=== PATIENT | female | born 1940 | race Caucasian/White ===

== ENCOUNTER 2017-09-03 06:08 | Inpatient (IN) | payer MEDICARE, OTHER ==
[2017-09-03] VITALS (15 sets, daily range): BP systolic 119–174; BP diastolic 65–87; PULSE 84–119; RESP 24–32; TEMP 97.7–98.8; O2SAT 88–100
[~2017-09-03] VITALS: Ht 172.7 cm; Wt 71.5 kg
[2017-09-03] MEDS ORDERED: FUROSEMIDE 40 MG/4 ML VIAL IV PUSH ONE (06:15)
[2017-09-03] MEDS ORDERED: RESP: ALBUTEROL 2.5 MG/IPRATROPIUM 0.5 MG NEB (SCH) INH ONE (06:15)
[2017-09-03] MEDS ORDERED: PIPERACIL-TAZO 4.5 GM PREMIX 100 ML IV ONE (06:15)
[2017-09-03] MEDS ORDERED: SODIUM CHLORIDE 0.9% FLUSH 10 ML FLUSH IVF PRN (06:15)
[2017-09-03 06:52] LABS: AUTOMATED NEUTROPHIL # 20.2 TH/MM3 (1.8-7.7); BASOPHIL # 0.1 TH/MM3 (0-0.2); BASOPHIL % 0.4 % (0.0-2.0); EOSINOPHIL # 0.2 TH/MM3 (0-0.4); EOSINOPHIL % 0.7 % (0.0-4.0); HEMATOCRIT 25.7 % (35.0-46.0); HEMOGLOBIN 8.5 GM/DL (11.6-15.3); LYMPH % 11.1 % (9.0-44.0); LYMPHOCYTE # 2.7 TH/MM3 (1.0-4.8); MEAN CELL VOLUME 87.9 FL (80.0-100.0); MEAN CORPUSCULAR HEMOGLOBIN 29.2 PG (27.0-34.0); MEAN CORPUSCULAR HGB CONC 33.2 % (32.0-36.0); MONO % 5.8 % (0.0-8.0); MONOCYTE # 1.4 TH/MM3 (0-0.9); PLATELET COUNT 342 TH/MM3 (150-450); RED BLOOD COUNT 2.92 MIL/MM3 (4.00-5.30); RED CELL DISTRIBUTION WIDTH 15.3 % (11.6-17.2); WHITE BLOOD COUNT 24.6 TH/MM3 (4.0-11.0)
--- NOTE | 2017-09-03 06:56 | RADRPT ---
EXAM DATE: 09/03/2017 6:52 AM EDT AGE/SEX: 76 years / Female INDICATIONS: Shortness of breath. CLINICAL DATA: This is the patient's initial encounter. Patient reports that signs and symptoms have been present for 1 day and indicates a pain score of 0/10. MEDICAL/SURGICAL HISTORY: . Recent pneumonia Hysterectomy. COMPARISON: TLI, XR CHEST PA AND LAT, 08/19/2014. . FINDINGS: Upright AP view of the chest demonstrates new bilateral multifocal airspace consolidations involving the bilateral upper lobes and lower lobes. Heart size appears grossly normal. Pulmonary vasculature i s obscured. Osseous structures are intact. CONCLUSION: Multifocal airspace consolidation. Findings consistent with multifocal pneumonia. Electronically signed by: Danii Quijano MD 09/03/2017 6:54 AM EDT
[2017-09-03 07:06] LABS: INTERNATIONAL NORMALIZED RATIO 1.2 RATIO; PROTHROMBIN TIME - PATIENT 12.2 SEC (9.8-11.6)
[2017-09-03 07:14] LABS: ALBUMIN 2.4 GM/DL (3.4-5.0); ALT (GPT) 29 U/L (10-53); AST (GOT) 32 U/L (15-37); BICARBONATE 20.8 MEQ/L (21.0-32.0); BLOOD UREA NITROGEN 20 MG/DL (7-18); CALCIUM 7.9 MG/DL (8.5-10.1); CHLORIDE 104 MEQ/L (98-107); CREATININE 1.49 MG/DL (0.50-1.00); GLOMERULAR FILTRATION RATE 34 ML/MIN (>89); GLUCOSE,RANDOM 94 MG/DL (74-106); MAGNESIUM 1.8 MG/DL (1.5-2.5); SODIUM (NA) 139 MEQ/L (136-145)
[2017-09-03 07:18] LABS: ALKALINE PHOSPHATASE 93 U/L (45-117); TOTAL BILIRUBIN ADULT 0.7 MG/DL (0.2-1.0); TOTAL PROTEIN 7.1 GM/DL (6.4-8.2); TROPONIN I 0.21 NG/ML (0.02-0.05)
--- NOTE | 2017-09-03 07:32 | PD ---
HPI Chief Complaint: Respiratory Symptoms Time Seen by Provider: 06:14 Travel History International Travel<30 days: No Contact w/Intl Traveler<30days: No Traveled to known affect area: No History of Present Illness HPI 76-year-old female presents to the emergency department from [facility] with acute worsening shortness of breath with work of breathing. Patient is noted to have peripheral edema and orthopnea. Patient recently hospitalized with pneumonia at [facility] and was discharged on oral antibiotic and has been a resident there for 3 weeks. Patient has been under the care of her town manager Dr. SILVESTRE her kiln loader Dr. Bobbi Chen and her splitter tender Dr. Whitley. Patient has been noted to have worsening renal function and it has been recommended that she be discontinued off of diuretic therapy. She was showing only minimal response to bronchodilator therapy. And her splitter tender office is recommending increased salt intake. Patient here has received Solu- Medrol in route to the hospital as well as 2 albuterol treatments and one DuoNeb treatment prior to arrival to the emergency department. Patient has had no diuretic in route to the hospital. Patient shows progressively worsening dyspnea with diaphoresis. Patient denies any chest pain. Patient has had no nausea or vomiting. PFSH Past Medical History Narrative Medical Surgeons syndrome rheumatoid arthritis COPD chronic renal failure hysterectomy varicose vein stripping; no tobacco use no alcohol use; nursing notes reviewed Autoimmune Disease: Yes Past Surgical History Hysterectomy: Yes Other Surgery: Yes (VARICOSE VEINS STRIPPED) Social History Alcohol Use: No Tobacco Use: No Substance Use: No Allergies-Medications (Allergen,Severity, Reaction): Coded Allergies: codeine (Verified Allergy, Unknown, Hallucinations, 09/03/17) Review of Systems Except as stated in HPI: all other systems reviewed are Neg General / Constitutional: Positive: Chills, No: Fever HENT: Positive: Congestion Cardiovascular: No: Chest Pain or Discomfort Respiratory: Positive: Cough, Shortness of Breath Gastrointestinal: No: Nausea, Vomiting, Abdominal Pain Genitourinary: No: Dysuria Musculoskeletal: Positive: Edema, No: Myalgias, Arthralgias Skin: No Rash Neurologic: No: Weakness, Dizziness, Syncope, Focal Abnormalities Psychiatric: No: Anxiety Hematologic/Lymphatic: No: Lymph Node Enlargement Physical Exam Narrative GENERAL: Well-developed well-nourished female in obvious respiratory distress with demonstrating work of breathing and tachypnea SKIN: Warm and dry. Pallor. HEAD: Normocephalic. EYES: No scleral icterus. No injection or drainage. NECK: Supple, trachea midline. No JVD or lymphadenopathy. CARDIOVASCULAR: Increased irregularly irregular rate and rhythm without murmurs , gallops, or rubs. RESPIRATORY: Breath sounds equal bilaterally bilateral rales. No accessory muscle use. GASTROINTESTINAL: Abdomen soft, non-tender, nondistended. MUSCULOSKELETAL: No cyanosis, bilateral lower leg and pedal pitting edema. BACK: Nontender without obvious deformity. No CVA tenderness. Data Data Last Documented VS Vital Signs Date Time Temp Pulse Resp B/P (MAP) Pulse Ox O2 Delivery O2 Flow Rate FiO2 09/03/17 07:45 100 100 09/03/17 07:40 BiPAP 09/03/17 07:20 118 28 146/68 (94) 4.00 09/03/17 06:10 98.8 Orders Orders Complete Blood Count With Diff (09/03/17 06:14) Comprehensive Metabolic Panel (09/03/17 06:14) B-Type Natriuretic Peptide (09/03/17 06:14) Act Partial Throm Time (Ptt) (09/03/17 06:14) Prothrombin Time / Inr (Pt) (09/03/17 06:14) Magnesium (Mg) (09/03/17 06:14) Ckmb (Isoenzyme) Profile (09/03/17 06:14) Troponin I (09/03/17 06:14) Urinalysis - C+S If Indicated (09/03/17 06:14) Blood Culture (09/03/17 06:14) Iv Access Insert/Monitor (09/03/17 06:14) Electrocardiogram (09/03/17 06:14) Ecg Monitoring (09/03/17 06:14) Oximetry (09/03/17 06:14) Oxygen Administration (09/03/17 06:14) Chest, Single Ap (09/03/17 06:14) Sodium Chloride 0.9% Flush (Ns Flush) (09/03/17 06:15) Albuterol-Ipratropium Neb (Duoneb Neb) (09/03/17 06:15) Furosemide Inj (Lasix Inj) (09/03/17 06:15) Lactic Acid (09/03/17 06:14) Piperacil-Tazo 4.5 Gm Premix (Zosyn 4.5 (09/03/17 06:15) Vancomycin Inj (Vancomycin Inj) (09/03/17 07:45) Arterial Blood Gas (Abg) (09/03/17 07:40) Admit Order (Ed Use Only) (09/03/17 ) Bookkeeper / Telemetry JOSE.Q8H (09/03/17 07:51) Diet Npo (09/03/17 Breakfast) Activity Bed Rest (09/03/17 07:51) Notify Dr: Other (09/03/17 07:51) Labs Laboratory Tests Test 09/03/17 06:30 09/03/17 07:40 White Blood Count 24.6 TH/MM3 Red Blood Count 2.92 MIL/MM3 Hemoglobin 8.5 GM/DL Hematocrit 25.7 % Mean Corpuscular Volume 87.9 FL Mean Corpuscular Hemoglobin 29.2 PG Mean Corpuscular Hemoglobin Concent 33.2 % Red Cell Distribution Width 15.3 % Platelet Count 342 TH/MM3 Mean Platelet Volume 8.0 FL Neutrophils (%) (Auto) 82.0 % Lymphocytes (%) (Auto) 11.1 % Monocytes (%) (Auto) 5.8 % Eosinophils (%) (Auto) 0.7 % Basophils (%) (Auto) 0.4 % Neutrophils # (Auto) 20.2 TH/MM3 Lymphocytes # (Auto) 2.7 TH/MM3 Monocytes # (Auto) 1.4 TH/MM3 Eosinophils # (Auto) 0.2 TH/MM3 Basophils # (Auto) 0.1 TH/MM3 CBC Comment DIFF FINAL Differential Comment Prothrombin Time 12.2 SEC Prothromb Time International Ratio 1.2 RATIO Activated Partial Thromboplast Time 25.0 SEC Blood Urea Nitrogen 20 MG/DL Creatinine 1.49 MG/DL Random Glucose 94 MG/DL Total Protein 7.1 GM/DL Albumin 2.4 GM/DL Calcium Level 7.9 MG/DL Magnesium Level 1.8 MG/DL Alkaline Phosphatase 93 U/L Aspartate Amino Transf (AST/SGOT) 32 U/L Alanine Aminotransferase (ALT/SGPT) 29 U/L Total Bilirubin 0.7 MG/DL Sodium Level 139 MEQ/L Potassium Level 3.3 MEQ/L Chloride Level 104 MEQ/L Carbon Dioxide Level 20.8 MEQ/L Anion Gap 14 MEQ/L Estimat Glomerular Filtration Rate 34 ML/MIN Lactic Acid Level 1.6 mmol/L Total Creatine Kinase 41 U/L Troponin I 0.21 NG/ML B-Type Natriuretic Peptide 1530 PG/ML Blood Gas Puncture Site RT RADIAL Blood Gas Patient Temperature 98.6 Blood Gas HCO3 20 mmol/L Blood Gas Base Excess -2.7 mmol/L Blood Gas Oxygen Saturation 83 % Arterial Blood pH 7.50 Arterial Blood Partial Pressure CO2 26 mmHg Arterial Blood Partial Pressure O2 48 mmHG Arterial Blood Oxygen Content 20.0 Vol % Arterial Blood Carboxyhemoglobin 1.6 % Arterial Blood Methemoglobin 0.5 % Blood Gas Hemoglobin 17.2 G/DL Oxygen Delivery Device NASAL CANNULA Blood Gas Liter Flow 4 L/M MDM Medical Decision Making Medical Screen Exam Complete: Yes Emergency Medical Condition: Yes Medical Record Reviewed: Yes Interpretation(s) EKG atrial fibrillation with controlled ventricular rate right axis deviation nonspecific ST segment flattening marked baseline artifact Last Impressions Chest X-Ray 09/03/17613 Signed Impressions: CONCLUSION: Multifocal airspace consolidation. Findings consistent with multifocal pneumoni a. CBC & BMP Diagram 09/03/17 06:30 Total Protein 7.1, Albumin 2.4 L, Calcium Level 7.9 L, Magnesium Level 1.8, Alkaline Phosphatase 93, Aspartate Amino Transf (AST/SGOT) 32, Alanine Aminotransferase (ALT/SGPT) 29, Total Bilirubin 0.7 Vital Signs Date Time Temp Pulse Resp B/P (MAP) Pulse Ox O2 Delivery O2 Flow Rate FiO2 09/03/17 07:20 118 28 146/68 (94) 88 Nasal Cannula 4.00 09/03/17 06:32 92 Nasal Cannula 4.00 09/03/17 06:10 98.8 104 26 174/87 (116) 92 ABG 4 L nasal cannula pH 7.5 PCO2 26 PO2 48 bicarb 20 base excess -2.7 O2 saturation 83% Differential Diagnosis Dyspnea, CHF, pulmonary edema, bilateral pneumonia, ACS, sepsis Narrative Course Patient placed on front desk monitor with continuous pulse oximetry with supplemental oxygen and administered DuoNeb updraft 2 as well as Lasix 60 mg IV 1 dose; cultures obtained lactic acid ordered and patient ordered Zosyn to be administered followed by vancomycin. Patient continues to show work of breathing concern for fatigue will order BiPAP to assist with ventilatory effort. Family at bedside. Patient's daughter well informed regarding patient's underlying medical conditions reports that her kiln loader and town manager have recommended avoiding diuretics although this is an acute change for her and patient has been noted to have acute peripheral edema and orthopnea in the last few days. Family is informed of patient's condition and plan for admission to the ICU. Patient has history of atrial fibrillation and is currently not on anticoagulant Chest x-ray resulted patient has borderline cardiomegaly with diffuse bilateral patchy infiltrates concerning for patchy pneumonia no effusion White cell count is 24,000 with anemia hemoglobin 8.5 and left shift; lactic acid is not elevated at 1.6 Chemistries remarkable for renal insufficiency. Creatinine 20/1.49 Troponin I is elevated 0.21 with a BNP of 1530 Discussed again intubation with the patient she is agreeable to intubation but wants trial of BiPAP first. Suspect patient will fatigue and will require endotracheal intubation and ventilatory support. Patient's case has been discussed with bolter helper who will accept patient to their service Sepsis Criteria SIRS Criteria (2 or more): Heart rate over 90, RR > 20 or PaCO2 < 32, WBC > 78268, < 4000 or > 10% bands Sepsis Criteria (SIRS+source): Infect source susp/known (pulmonary/pneumonia) Physician Communication Physician Communication call placed to bolter helper -- admit to Dr Johnson Diagnosis Primary Impression: Pneumonia Qualified Codes: J18.9 - Pneumonia, unspecified organism Additional Impressions: CHF (congestive heart failure) Qualified Codes: I50.9 - Heart failure, unspecified Elevated troponin I level Renal insufficiency Sepsis Qualified Codes: A41.9 - Sepsis, unspecified organism Acute hypoxemic respiratory failure Admitting Information Admitting Physician Requests: Admit Ashley Balderas MD Sep 03, 2017 07:32
[2017-09-03] MEDS ORDERED: VANCOMYCIN INJ 1,000 MG in SODIUM CHLOR 0.9% 250 ML INJ 250 ML IV ONE (07:45)
[2017-09-03] MEDS ORDERED: POTASSIUM CHLOR 20 MEQ PREMIX 100 ML IV PRN (09:45)
[2017-09-03] MEDS ORDERED: POTASSIUM PHOSPHATE MONOBASIC 500 MG TAB PO/TUBE PRN (09:45)
[2017-09-03] MEDS ORDERED: MAGNESIUM SULFATE INJ 2 GM in SODIUM CHLORIDE 0.9% INJ 96 ML IV PRN (09:45)
[2017-09-03] MEDS ORDERED: MAGNESIUM OXIDE 400 MG TAB PO PRN (09:45)
[2017-09-03] MEDS ORDERED: SODIUM PHOSPHATE INJ 30 MMOL in SODIUM CHLOR 0.9% 250 ML INJ 240 ML IV PRN (09:45)
[2017-09-03] MEDS ORDERED: POTASSIUM PHOSPHATE INJ 30 MMOL in SODIUM CHLOR 0.9% 250 ML INJ 250 ML IV PRN (09:45)
[2017-09-03] MEDS ORDERED: POTASSIUM CHLORIDE 25 MEQ EFFERVESCENT TAB PO PRN (09:45)
[2017-09-03] MEDS ORDERED: MAGNESIUM SULFATE INJ 4 GM in SODIUM CHLORIDE 0.9% INJ 92 ML IV PRN (09:45)
[2017-09-03] MEDS ORDERED: POTASSIUM PHOSPHATE MONOBASIC 500 MG TAB PO PRN (09:45)
[2017-09-03] MEDS ORDERED: POTASSIUM CHLOR 40 MEQ PREMIX 100 ML IV PRN ×2 (09:45)
--- NOTE | 2017-09-03 10:17 | HHI.HP ---
HPI Service Critical Care Medicine Primary Care Physician Unknown Admission Diagnosis resp failure/pneumonia/chf; sepsis; SUSANNAH; elevated troponin I Diagnosis: Travel History International Travel<30 Days: No Contact w/Intl Traveler <30 Da: No Traveled to Known Affected Are: No Sepsis Criteria SIRS Criteria (2 or more): Heart rate over 90, RR > 20 or PaCO2 < 32, WBC > 36866, < 4000 or > 10% bands Sepsis Criteria (SIRS+source): Infect source susp/known Criteria Outcome: Meets sepsis criteria History of Present Illness Patient history is limited due to BiPAP mask in place. History is obtained from patient's daughter and review of records from [facility]. 76-year-old female with past medical history of hypertension, COPD, emphysema,, Sjogren's syndrome, rheumatoid arthritis ( on plaquenil), CKD stage IV, hypothyroidism, chronic anemia with iron deficiency, GERD who presented to [facility] emergency department via [facility] from [facility]. She has recent hospitalization at [facility] on 07/24. She was discharged to [facility] on 08/05. Her daughter states that during this hospitalization she was treated for bilateral pneumonia and had tested positive for rhinovirus. Reportedly echo during that hospitalization showed an EF of 50% . Yesterday she left [facility] for a 4-hour home visit. Her daughter states she was fatigued and laid in bed. She was SOB. She has had a cough productive of clear sputum for 3 days. She denies any chest pain or hemoptysis. She has experienced bilateral lower extremity swelling. Her daughter reports that she had a fever at the residential however what is documented on transfer paperwork is temp of 97.4. Patient denies any issues with this for nausea. She has vomited every morning for the last week a few minutes after swallowing her morning medications. Upon arrival she is afebrile with night temp at 98.8. She is in A. fib with RVR with rate in the 110s. Blood white blood cell count is 24.6, creatinine of 1.49, troponin 0 0.21, BNP 1530. She has received Lasix 60 mg IV and has been placed on BiPAP 10/5 and 100% for increased work of breathing. Blood cultures have been obtained and she has been administered vancomycin, Zosyn, DuoNeb in the ED. She states she feels improved compared with arrival. She is agreeable to intubation if needed. Past Family Social History Allergies: Coded Allergies: codeine (Verified Allergy, Unknown, Hallucinations, 09/03/17) Past Medical History COPD/emphysema, she was followed by Dr. Mcmullen while at [facility] CKD stage IV. her daughter states this was secondary to long-term NSAID use. Her consumer relations complaint clerk is Dr. Jonas Chronic atrial fibrillation; makeup sales consultant is Dr. Whitley Hyperlipidemia Sjogren's syndrome, rheumatoid arthritis, inside barrel polisher is Dr. Mays Hypothyroidism Chronic anemia she has not had blood transfusion but had an IV iron infusion on 08/28/17 at [facility] Vitamin D deficiency Insomnia Osteoarthritis GERD Past Surgical History Hysterectomy Varicose vein stripping Colonoscopy 6 years ago was negative She had an EGD in fall 2016 for workup for anemia which was reportedly negative Reported Medications Norvasc 10 mg p.o. daily Metoprolol 25 mg p.o. twice daily DuoNeb every 6 hours Sodium bicarbonate 650 mg p.o. 3 times daily Tramadol 50 mg p.o. every 12 hours as needed for pain Aspirin 81 mg p.o. nightly Calcitriol 0.5 mcg p.o. daily Citalopram 40 mg p.o. daily Flexeril 10 mg p.o. 3 times daily Omeprazole 20 mg p.o. twice daily Evoxac 30 mg p.o. 3 times daily Magic mouthwash 5 mL's p.o. 4 times daily Gabapentin 100 mill grams p.o. 3 times daily Hydroxychloroquine 400 mg p.o. daily Levothyroxine 88 mcg p.o. daily acid 1000 mg p.o. daily Acetaminophen as needed for pain Ferrous sulfate 325 mg p.o. twice daily Culturelle 15 billion p.o. daily for 14 days Biotin 600 mcg p.o. daily Senna 1 tab p.o. daily Prednisone 5 mg p.o. daily Melatonin 6 mg p.o. nightly Family History Father in the war and medical history is unknown Mother at age 88 due to MRSA sepsis. She had cervical cancer. She also had rheumatoid arthritis Daughter has rheumatoid arthritis and Sjogren's Social History Smoked 17 cigarettes per day for 15 years and quit in 1982 Occasionally drinks wine . Her had undergone heart transplant Physical Exam Vital Signs Vital Signs Date Time Temp Pulse Resp B/P (MAP) Pulse Ox O2 Delivery O2 Flow Rate FiO2 6/3/18 09:46 100 98 09/03/17 08:30 119 28 156/70 (98) 100 BiPAP 09/03/17 07:45 100 100 09/03/17 07:40 BiPAP 09/03/17 07:20 118 28 146/68 (94) 88 Nasal Cannula 4.00 09/03/17 06:32 92 Nasal Cannula 4.00 09/03/17 06:10 98.8 104 26 174/87 (116) 92 Physical Exam GENERAL: Elderly overweight female who has BiPAP mask in place. She is communicating by speaking a few words while on BiPAP. SKIN: Warm and dry, adequately perfused. HEAD: Atraumatic. Normocephalic. EYES: Pupils equal and round, 2 mm and reactive bilaterally.. No scleral icterus. No injection or drainage. ENT: BiPAP mask in place. NECK: Trachea midline. Sitting up in bed, unable to appreciate JVD CARDIOVASCULAR: Irregularly irregular, tachycardic, no murmurs rubs or gallops appreciated. RESPIRATORY: Tachypneic with BiPAP mask on place with respiratory rate in the mid 20s. She has bilateral anterior and posterior rails. No wheeze. GASTROINTESTINAL: Abdomen soft, non-tender, nondistended. Bowel sounds present. MUSCULOSKELETAL: Extremities without clubbing, cyanosis. Trace pedal edema. No palpable cords or erythema. NEUROLOGICAL: Awake and alert, answers questions appropriately though conversation is limited due to BiPAP mask. No obvious cranial nerve deficits. Moving all extremities without apparent focal deficit. Laboratory Laboratory Tests Test 09/03/17 06:30 09/03/17 07:40 White Blood Count 24.6 Red Blood Count 2.92 Hemoglobin 8.5 Hematocrit 25.7 Mean Corpuscular Volume 87.9 Mean Corpuscular Hemoglobin 29.2 Mean Corpuscular Hemoglobin Concent 33.2 Red Cell Distribution Width 15.3 Platelet Count 342 Mean Platelet Volume 8.0 Neutrophils (%) (Auto) 82.0 Lymphocytes (%) (Auto) 11.1 Monocytes (%) (Auto) 5.8 Eosinophils (%) (Auto) 0.7 Basophils (%) (Auto) 0.4 Neutrophils # (Auto) 20.2 Lymphocytes # (Auto) 2.7 Monocytes # (Auto) 1.4 Eosinophils # (Auto) 0.2 Basophils # (Auto) 0.1 CBC Comment DIFF FINAL Differential Comment Prothrombin Time 12.2 Prothromb Time International Ratio 1.2 Activated Partial Thromboplast Time 25.0 Blood Urea Nitrogen 20 Creatinine 1.49 Random Glucose 94 Total Protein 7.1 Albumin 2.4 Calcium Level 7.9 Magnesium Level 1.8 Alkaline Phosphatase 93 Aspartate Amino Transf (AST/SGOT) 32 Alanine Aminotransferase (ALT/SGPT) 29 Total Bilirubin 0.7 Sodium Level 139 Potassium Level 3.3 Chloride Level 104 Carbon Dioxide Level 20.8 Anion Gap 14 Estimat Glomerular Filtration Rate 34 Lactic Acid Level 1.6 Total Creatine Kinase 41 Troponin I 0.21 B-Type Natriuretic Peptide 1530 Blood Gas Puncture Site RT RADIAL Blood Gas Patient Temperature 98.6 Blood Gas HCO3 20 Blood Gas Base Excess -2.7 Blood Gas Oxygen Saturation 83 Arterial Blood pH 7.50 Arterial Blood Partial Pressure CO2 26 Arterial Blood Partial Pressure O2 48 Arterial Blood Oxygen Content 20.0 Arterial Blood Carboxyhemoglobin 1.6 Arterial Blood Methemoglobin 0.5 Blood Gas Hemoglobin 17.2 Oxygen Delivery Device NASAL CANNULA Blood Gas Liter Flow 4 Date/Time Source Procedure Growth Status 09/03/17 06:35 Blood Peripheral Aerobic Blood Culture Pending Received 09/03/17 06:35 Blood Peripheral Anaerobic Blood Culture Pending Received Result Diagram: 09/03/1762909/03/1730 Septic Shock Reassessment Septic shock perfusion: reassessment completed Caprini VTE Risk Assessment Caprini VTE Risk Assessment: Mod/High Risk (score >= 2) Caprini Risk Assessment Model Point Value = 1 Point Value = 2 Point Value = 3 Point Value = 5 Age 41-60 Minor surgery BMI > 25 kg/m2 Swollen legs Varicose veins or History of unexplained or recurrent spontaneous Oral contraceptives or hormone replacement Sepsis (< 1 month) Serious lung disease, including pneumonia (< 1 month) Abnormal pulmonary function Acute myocardial infarction Congestive heart failure (< 1 month) History of inflammatory bowel disease Medical patient at bed rest Age 61-74 Arthroscopic surgery Major open surgery (> 45 min) Laparoscopic surgery (> 45 min) Malignancy Confined to bed (> 72 hours) Immobilizing plaster cast Central venous access Age >= 75 History of VTE Family history of VTE Factor V Leiden Prothrombin [id number] Lupus anticoagulant Anticardiolipin antibodies Elevated serum homocysteine Heparin-induced thrombocytopenia Other congenital or acquired thrombophilia Stroke (< 1 month) Elective arthroplasty Hip, pelvis, or leg fracture Acute spinal cord injury (< 1 month) Prophylaxis Regimen Total Risk Factor Score Risk Level Prophylaxis Regimen 0-1 Low Early ambulation 2 Moderate Order ONE of the following: *Sequential Compression Device (SCD) *Heparin 5000 units SQ BID 3-4 Higher Order ONE of the following medications: *Heparin 5000 units SQ TID *Enoxaparin/Lovenox 40 mg SQ daily (WT < 150 kg, CrCl > 30 mL/min) *Enoxaparin/Lovenox 30 mg SQ daily (WT < 150 kg, CrCl > 10-29 mL/min) *Enoxaparin/Lovenox 30 mg SQ BID (WT < 150 kg, CrCl > 30 mL/min) AND/OR *Sequential Compression Device (SCD) 5 or more Highest Order ONE of the following medications: *Heparin 5000 units SQ TID (Preferred with Epidurals) *Enoxaparin/Lovenox 40 mg SQ daily (WT < 150 kg, CrCl > 30 mL/min) *Enoxaparin/Lovenox 30 mg SQ daily (WT < 150 kg, CrCl > 10-29 mL/min) *Enoxaparin/Lovenox 30 mg SQ BID (WT < 150 kg, CrCl > 30 mL/min) AND *Sequential Compression Device (SCD) Assessment and Plan Assessment and Plan NEURO: Peripheral neuropathy Depression Insomnia For now we will hold nonessential medications including citalopram 40 mg p.o. daily, Flexeril 10 mg p.o. 3 times daily, Neurontin 100 mg's p.o. 3 times daily , melatonin 6 mg p.o. nightly RESP: Acute hypoxemic respiratory failure On BiPAP. Will intubate if needed. DuoNeb every 6 hours. Albuterol every 2 hours as needed. CV: Hypertension Atrial fibrillation Hyperlipidemia Lactic acid normal Received Lasix 60 mg IV in the emergency department. Monitor response. Obtain 2D echo EKG in the emergency department has significant artifact. It appears consistent with A. fib. No remarkable ST changes. Serial EKG and cardiac markers. Aspirin 325 mg now GI: GERD Famotidine as per below N.p.o. while on BiPAP and with respiratory failure FEN/RENAL: CKD stage III Acute hypokalemia Insert Hoffman for accurate intake and output monitoring while on BiPAP ID: Leukocytosis Follow-up blood culture. Send sputum culture. Continue vancomycin with pharmacy dosing, Zosyn (dose for creatinine clearance of 37), azithromycin. Check urine Legionella and pneumococcal antigen. IMMUNO: Sjogren's syndrome Rheumatoid arthritis Hold Plaquenil for now due to concern for sepsis. Home dose is 400 mg p.o. daily Continue Evoxac 30 mill grams p.o. 3 times daily HEME: Chronic anemia Iron deficiency Bilateral posterior tibial venous thrombosis. Obtain bilateral lower extremity ultrasound - results indicate bilateral below knee DVT, bilateral posterial tibial veins. She is symptomatic and also at high risk of extension due to immobility. I am also not able to r/o PE at this time because not candidate for VQ with bilateral infiltrates and not candidate for CT PA due to CKD. Therefore, favor treatment in this situation. Discussed with patient and her daughter. Continue ferrous sulfate 325 mg p.o. twice daily ENDO: Hypothyroidism Check TSH and resume Synthroid 88 mcg p.o. daily if appropriate Has been on prednisone since recent hospitalization. Currently prednisone 5 mg p.o. daily which will continue. PROPH: SCDs/heparin 5000 units subcu every 12 hours for DVT prophylaxis. Monitor for evidence of bleeding. Famotidine for stress ulcer prophylactic ACCESS: Peripheral IV providing adequate access at this time Patient is agreeable to intubation if needed. Patient and her daughter updated at bedside. Discussed with patient in the evening of 09/03. She was capacitated for medical decision-making. She states she is agreeable to intubation if needed for respiratory failure but wishes to be DNR in the setting of pulseless arrest. I have ordered alternate code intubation only. Will obtain records from [facility] Patient is critically ill with respiratory failure requiring BiPAP. She is at high risk for further decompensation including requiring intubation and mechanical ventilation. Discussed with Dr. Balderas Critical care time 45 minutes exclusive of separately billable procedures. Pamela Johnson MD Sep 03, 2017 10:17
[2017-09-03] MEDS ORDERED: Vancomycin Consult Pharmacy 1 EA OTHER SCH (10:30)
[2017-09-03] MEDS ORDERED: NURSING INFORMATION XX SCH (10:45)
[2017-09-03] MEDS ORDERED: RESP: ALBUTEROL 2.5 MG/3 ML NEB (PRN) INH (10:45)
[2017-09-03] MEDS ORDERED: ACETAMINOPHEN 325 MG TAB PO PRN (10:45)
[2017-09-03] MEDS ORDERED: MAGNESIUM HYDROXIDE SUSP 30 ML CUP PO PRN (10:45)
[2017-09-03] MEDS ORDERED: CHLORHEXIDINE GLUCONATE 2 % 1 PACK (2 CLOTHS) TOP PRN (10:45)
[2017-09-03] MEDS ORDERED: LACTULOSE SYRUP 20 GM/30 ML CUP PO PRN (10:45)
[2017-09-03] MEDS ORDERED: SODIUM CHLORIDE 0.9% FLUSH 10 ML FLUSH IV FLUSH PRN (10:45)
[2017-09-03] MEDS ORDERED: BISACODYL 10 MG SUPP RECTAL PRN (10:45)
[2017-09-03] MEDS ORDERED: SENNOSIDES 8.6 MG TAB PO PRN (10:45)
[2017-09-03] MEDS ORDERED: predniSONE 5 MG TAB PO SCH (11:15)
[2017-09-03] MEDS ORDERED: ASPIRIN 81 MG CHEW TAB CHEW ONE (11:30)
[2017-09-03] MEDS ORDERED: HEPARIN SODIUM - SQ 10,000 UNITS/ML VIAL SQ SCH (12:00)
[2017-09-03] MEDS: POTASSIUM CHLOR 20 MEQ PREMIX 100 ML IV SCH ×2 (12:42→15:44)
[2017-09-03] MEDS: AZITHROMYCIN INJ 500 MG in SODIUM CHLOR 0.9% 250 ML INJ 250 ML IV SCH (12:43)
[2017-09-03] MEDS: PIPERACIL-TAZO 3.375 GM PREMIX 50 ML IV SCH ×2 (15:44→19:21)
[2017-09-03] MEDS: FUROSEMIDE 40 MG/4 ML VIAL IV PUSH SCH ×2 (15:45→20:41)
--- NOTE | 2017-09-03 15:48 | RADRPT ---
EXAM DATE: 09/03/2017 3:36 PM EDT AGE/SEX: 76 years / Female INDICATIONS: Bilateral lower extremity swelling. Shortness of breath. CLINICAL DATA: This is the patient's initial encounter. Patient reports that signs and symptoms have been present for 1 day and indicates a pain score of 0/10. MEDICAL/SURGICAL HISTORY: . Rheumatoid arthritis. COPD. Sjorogen's disease. Kidney failure s tage 4. Neuropathy. . Vein stripping. Hysterectomy. COMPARISON: No prior [facility] exams available for comparison. No external comparison. TECHNIQUE: Venous ultrasound of both lower extremities was performed from the inguinal ligament to t he proximal calf. Real-time, color Doppler and spectral tracing, compression and augmentation techni ques were used. FINDINGS: Right Leg: There is thrombus in the right posterior tibial vein. Other venous tributaries of the rig ht lower extremity are patent. Left Leg: There is thrombus in the left posterior tibial vein. Other venous tributaries of the left lower extremity are patent. CONCLUSION: Bilateral below the knee lower extremity DVT as above. Electronically signed by: Jorden Downing MD 09/03/2017 3:47 PM EDT
--- NOTE | 2017-09-03 15:58 | EKG ---
Date Performed: 09/03/2017 Time Performed: 06:36:49 PTAGE: 76 years EKG: Marked baseline electrical interference makes interpretation difficult. There is a regular rhythm present with a heart rate of 99. Nonspecific ST-T changes Recommend repeat tracing of better q uality NO PREVIOUS TRACING DOCTOR: Fermin Carlin Interpretating Date/Time 09/03/2017 15:57:04
--- NOTE | 2017-09-03 16:06 | RADRPT ---
EXAM DATE: 09/03/2017 3:45 PM EDT AGE/SEX: 76 years / Female INDICATIONS: Increased BUN and creatinine. CLINICAL DATA: This is the patient's initial encounter. Patient reports that signs and symptoms have been present for 1 day and indicates a pain score of 0/10. MEDICAL/SURGICAL HISTORY: . Rheumatoid arthritis. Sjorogens disease. Kidney failure stage 4. Neuropathy. COPD. . Hysterectomy. Vein stripping. COMPARISON: No prior [place] exams available for comparison. No external comparison. MEASUREMENTS: Right Kidney:__8.5 x 4.6 x 4.6 cm Left Kidney:__10.7 x 5.1 x 5.3 cm FINDINGS: Right Kidney: 21 mm simple, benign-appearing cyst right upper pole. Parenchymal echogenicity within n ormal limits. No hydronephrosis. Left Kidney: Parenchymal echogenicity within normal limits. No mass or hydronephrosis. Bladder: Within normal limits given the degree of distension. CONCLUSION: 1. No obstructive uropathy or other acute abnormality demonstrated. 2. Small, benign cyst of the right upper pole. Electronically signed by: Jorden Downing MD 09/03/2017 4:05 PM EDT
[2017-09-03] MEDS: RESP: ALBUTEROL 2.5 MG/IPRATROPIUM 0.5 MG NEB (SCH) INH ×2 (16:57→21:18)
[2017-09-03] MEDS: ENOXAPARIN SODIUM 80 MG/0.8 ML SYRINGE SQ SCH (18:00)
[2017-09-03] MEDS: predniSONE 5 MG TAB PO SCH (19:18)
[2017-09-03 20:30] LABS: TROPONIN I 0.22 NG/ML (0.02-0.05)
[2017-09-03] MEDS: FAMOTIDINE 20 MG/2 ML VIAL IV PUSH SCH (20:41)
[2017-09-03] MEDS: SODIUM CHLORIDE 0.9% FLUSH 10 ML FLUSH IV FLUSH SCH (20:42)
[2017-09-03] MEDS: DOCUSATE SODIUM 50 MG/SENNA 8.6 MG TAB PO SCH (20:42)
[2017-09-03] MEDS: POTASSIUM CHLOR 20 MEQ PREMIX 100 ML IV PRN ×2 (20:43→22:40)
[2017-09-03 21:11] LABS: BILIRUBIN, URINE NEG (NEG); BLOOD, URINE NEG (NEG); GLUCOSE,URINE NEG (NEG); KETONE, URINE NEG (NEG); NITRITE,URINE NEG (NEG); URINE COLOR LIGHT-YELLOW (YELLW/STRAW); URINE LEUKOCYTE ESTERASE NEG (NEG)
[2017-09-04] VITALS (13 sets, daily range): BP systolic 127–142; BP diastolic 59–77; PULSE 72–105; RESP 20–24; TEMP 97.8–98.8; O2SAT 93–99
[2017-09-04] MEDS: PIPERACIL-TAZO 3.375 GM PREMIX 50 ML IV SCH ×4 (01:00→18:21)
[2017-09-04] MEDS: RESP: ALBUTEROL 2.5 MG/IPRATROPIUM 0.5 MG NEB (SCH) INH ×4 (03:45→21:03)
[2017-09-04] MEDS: CHLORHEXIDINE GLUCONATE 2 % 1 PACK (2 CLOTHS) TOP SCH (04:00)
--- NOTE | 2017-09-04 05:46 | RADRPT ---
EXAM DATE: 09/04/2017 5:43 AM EDT AGE/SEX: 76 years / Female INDICATIONS: Shortness of breath, possible pulmonary disease. CLINICAL DATA: This is the patient's subsequent encounter. Patient reports that signs and symptoms h ave been present for 2 days and indicates a pain score of 0/10. MEDICAL/SURGICAL HISTORY: Rheumatoid arthritis. Renal failure, chronic. Chronic obstructive p ulmonary disease. Sjorogens disease Hysterectomy. COMPARISON: [facility] [place], CHEST SINGLE AP, 09/03/2017. . FINDINGS: No significant changes in the bilateral interstitial and airspace pulmonary infiltrates. The overall pattern is essentially stable. The heart size is stable. There are small bilateral effusions. The bon y structures are stable. CONCLUSION: No significant interval change. Electronically signed by: Sunil Terrazas MD 09/04/2017 5:44 AM EDT
[2017-09-04] MEDS: ENOXAPARIN SODIUM 80 MG/0.8 ML SYRINGE SQ SCH ×2 (05:53→18:21)
[2017-09-04 06:42] LABS: AUTOMATED NEUTROPHIL # 21.6 TH/MM3 (1.8-7.7); BASOPHIL % 0.1 % (0.0-2.0); HEMOGLOBIN 7.6 GM/DL (11.6-15.3); LYMPH % 3.9 % (9.0-44.0); LYMPHOCYTE # 0.9 TH/MM3 (1.0-4.8); MEAN CELL VOLUME 87.8 FL (80.0-100.0); MEAN PLATELET VOLUME 7.7 FL (7.0-11.0); MONO % 3.6 % (0.0-8.0); MONOCYTE # 0.9 TH/MM3 (0-0.9); NEUT % 92.4 % (16.0-70.0); PLATELET COUNT 280 TH/MM3 (150-450); RED BLOOD COUNT 2.62 MIL/MM3 (4.00-5.30); RED CELL DISTRIBUTION WIDTH 15.4 % (11.6-17.2); WHITE BLOOD COUNT 23.4 TH/MM3 (4.0-11.0)
[2017-09-04 07:01] LABS: ALBUMIN 2.1 GM/DL (3.4-5.0); ALT (GPT) 23 U/L (10-53); AST (GOT) 27 U/L (15-37); BICARBONATE 24.2 MEQ/L (21.0-32.0); BLOOD UREA NITROGEN 25 MG/DL (7-18); CALCIUM 7.8 MG/DL (8.5-10.1); CHLORIDE 103 MEQ/L (98-107); CREATININE 1.61 MG/DL (0.50-1.00); GLOMERULAR FILTRATION RATE 31 ML/MIN (>89); GLUCOSE,RANDOM 108 MG/DL (74-106); MAGNESIUM 1.8 MG/DL (1.5-2.5); PHOSPHORUS 4.5 MG/DL (2.5-4.9); SODIUM (NA) 141 MEQ/L (136-145)
[2017-09-04 07:03] LABS: ALKALINE PHOSPHATASE 81 U/L (45-117); TOTAL BILIRUBIN ADULT 0.6 MG/DL (0.2-1.0); TOTAL PROTEIN 6.6 GM/DL (6.4-8.2)
[2017-09-04] MEDS ORDERED: VANCOMYCIN 1,000 MG/NS 250 ML IV SCH ×2 (08:00)
[2017-09-04] MEDS: POTASSIUM CHLOR 20 MEQ PREMIX 100 ML IV PRN ×2 (08:17→10:22)
[2017-09-04] MEDS: FAMOTIDINE 20 MG/2 ML VIAL IV PUSH SCH (09:31)
[2017-09-04] MEDS: SODIUM CHLORIDE 0.9% FLUSH 10 ML FLUSH IV FLUSH SCH (09:31)
[2017-09-04] MEDS: DOCUSATE SODIUM 50 MG/SENNA 8.6 MG TAB PO SCH ×2 (09:31→21:00)
[2017-09-04] MEDS: predniSONE 5 MG TAB PO SCH (09:31)
--- NOTE | 2017-09-04 09:48 | EKG ---
Date Performed: 09/03/2017 Time Performed: 19:37:30 PTAGE: 76 years EKG: Atrial fibrillation Inferior/lateral T wave changes are nonspecific Compared to previous tr acing atrial fibrillation is clearly present. There does not appear to be any other significant sandoval es Abnormal ECG PREVIOUS TRACING : 09/03/2017 06.36 DOCTOR: Gutierrez oL Interpretating Date/Time 09/04/2017 09:48:27
[2017-09-04] MEDS: AZITHROMYCIN INJ 500 MG in SODIUM CHLOR 0.9% 250 ML INJ 250 ML IV SCH (12:27)
--- NOTE | 2017-09-04 13:09 | HHI.CCPN ---
Subjective Remarks/Hospital Course Patient history is limited due to BiPAP mask in place. History is obtained from patient's daughter and review of records from [facility]. 76-year-old female with past medical history of hypertension, COPD, emphysema,, Sjogren's syndrome, rheumatoid arthritis (on plaquenil), CKD stage IV, hypothyroidism, chronic anemia with iron deficiency, GERD who presented to [facility] emergency department via [facility] from [facility]. She has recent hospitalization at [facility] on 07/24. She was discharged to [facility] on 08/05. Her daughter states that during this hospitalization she was treated for bilateral pneumonia and had tested positive for rhinovirus. Reportedly echo during that hospitalization showed an EF of 50% . Yesterday she left [facility] for a 4-hour home visit. Her daughter states she was fatigued and laid in bed. She was SOB. She has had a cough productive of clear sputum for 3 days. She denies any chest pain or hemoptysis. She has experienced bilateral lower extremity swelling. Her daughter reports that [facility] however what is documented on transfer paperwork is temp of 97.4. Patient denies any issues with this for nausea. She has vomited every morning for the last week a few minutes after swallowing her morning medications. Upon arrival she is afebrile with night temp at 98.8. She is in A. fib with RVR with rate in the 110s. Blood white blood cell count is 24.6, creatinine of 1.49, troponin 0 0.21, BNP 1530. She has received Lasix 60 mg IV and has been placed on BiPAP 10/5 and 100% for increased work of breathing. Blood cultures have been obtained and she has been administered vancomycin, Zosyn, DuoNeb in the ED. She states she feels improved compared with arrival. She is agreeable to intubation if needed. Subjective: 09/04 Diuresed net negative 1650. Was off Bipap to 6 L NC for couple of hours and then placed back on Bipap for desaturation. FIO2 weaned down to 55 from 100 % yesterday. Afebrile. No CP. Cough nonproductive. HAve not yet received records from [facility]. Will request them again. Objective Vital Signs Date Time Temp Pulse Resp B/P (MAP) Pulse Ox O2 Delivery O2 Flow Rate FiO2 09/04/17 12:00 98.5 86 24 137/72 (93) 99 09/04/17 12:00 Bi-Pap 55 09/04/17 09:33 6.00 Intake and Output 09/04/17 09/04/17 09/05/17 08:00 16:00 00:00 Intake Total 200 ml Output Total 1250 ml Balance -1050 ml Result Diagram: 09/04/17 0436 09/04/17 0436 Other Results Microbiology Date/Time Source Procedure Growth Status 09/03/17 21:25 Nasal Aspirate Influenza Types A,B Antigen (LAKHWINDER) - Final NEGATIVE FOR FLU A AND B ANTIGEN.... Complete 09/03/17 19:25 Urine Catheterized Urine Legionella Antigen - Final PRESUMPTIVE NEGATIVE FOR LEGIONELLA P... Complete 09/03/17 19:25 Urine Catheterized Urine Streptococcus pneumoniae Antigen (M - Final PRESUMPTIVE NEGATIVE FOR STREPTOCOCCU... Complete Laboratory Tests Test 09/03/17 14:35 Blood Gas Puncture Site RT RADIAL Blood Gas Patient Temperature 98.6 Blood Gas HCO3 22 mmol/L (22-26) Blood Gas Base Excess -1.1 mmol/L (-2-2) Blood Gas Oxygen Saturation 97 % (90-100) Arterial Blood pH 7.47 (7.380-7.420) Arterial Blood Partial Pressure CO2 31 mmHg (38-42) Arterial Blood Partial Pressure O2 267 mmHg (61-120) Arterial Blood Oxygen Content 15.2 Vol % (12.0-20.0) Arterial Blood Carboxyhemoglobin 1.1 % (0-4) Arterial Blood Methemoglobin 1.3 % (0-2) Blood Gas Hemoglobin 10.6 G/DL (12.0-16.0) Oxygen Delivery Device BIPAP Blood Gas Ventilator Setting EPAP5/PS7/IPAP12 Blood Gas Inspired Oxygen 80 % Objective Remarks GENERAL: Elderly overweight female who has BiPAP mask in place. She is communicating by speaking a few words while on BiPAP. SKIN: Warm and dry, adequately perfused. HEAD: Atraumatic. Normocephalic. EYES: Pupils equal and round, 2 mm and reactive bilaterally.. No scleral icterus. No injection or drainage. ENT: BiPAP mask in place. NECK: Trachea midline. Sitting up in bed, unable to appreciate JVD CARDIOVASCULAR: Irregularly irregular, rate 80s, no murmurs rubs or gallops appreciated. RESPIRATORY: Tachypneic with BiPAP mask on place with respiratory rate in the mid 20s. She has bilateral anterior and posterior rails. No wheeze. GASTROINTESTINAL: Abdomen soft, non-tender, nondistended. Bowel sounds present. MUSCULOSKELETAL: Extremities without clubbing, cyanosis. 1+ pitting bipedal edema. No palpable cords or erythema. NEUROLOGICAL: Awake and alert, answers questions appropriately though conversation is limited due to BiPAP mask. No obvious cranial nerve deficits. Moving all extremities without apparent focal deficit. A/P Assessment and Plan NEURO: Peripheral neuropathy Depression Insomnia Resume citalopram 40 mg p.o. daily, Flexeril 10 mg p.o. 3 times daily, Neurontin 100 mg's p.o. 3 times daily, melatonin 6 mg p.o. nightly RESP: Acute hypoxemic respiratory failure Bilateral pulmonary infiltrates This may represent ARDS/ lung injury ?secondary to rhinovirus. Would do bronchoscopy if she is intubated. Awaiting results of Echo, but this is not clearly cardiac and not significantly improved with diuresis. On BiPAP, weaning. Will intubate if needed. DuoNeb every 6 hours. Albuterol every 2 hours as needed. CV: Hypertension Atrial fibrillation Hyperlipidemia Lactic acid normal Received Lasix 60 mg IV in the emergency department 09/03 . Awaiting results of 2D echo EKG in the emergency department has significant artifact. It appears consistent with A. fib. No remarkable ST changes. Serial troponins flat at 0.2 Aspirin 325 mg daily . GI: GERD Famotidine as per below N.p.o. while on BiPAP and with respiratory failure Clear liquid diet FEN/RENAL: CKD stage III Acute hypokalemia Purewick in place intake and output monitoring while on BiPAP ICU electrolyte placement protocol. ID: Leukocytosis llow-up blood culture 09/03 - negative. Influenza screen negative. Unable to produce sputum Continue vancomycin with pharmacy dosing, Zosyn (dose for creatinine clearance of 37), azithromycin. urine Legionella and pneumococcal antigen negative IMMUNO: Sjogren's syndrome Rheumatoid arthritis Hold Plaquenil for now due to concern for sepsis. Home dose is 400 mg p.o. daily Evoxac 30 mill grams p.o. 3 times daily for sjogrens is not on formulary. HEME: Chronic anemia Iron deficiency Bilateral posterior tibial venous thrombosis. Obtained bilateral lower extremity ultrasound - results indicate bilateral below knee DVT, bilateral posterial tibial veins. She is symptomatic and also at high risk of extension due to immobility. I am also not able to r/o PE at this time because not candidate for VQ with bilateral infiltrates and not candidate for CT PA due to CKD. Therefore, favor treatment in this situation. Discussed with patient and her daughter. On lovenox 1mg/kg q12. Continue ferrous sulfate 325 mg p.o. twice daily. Received iron infusion on . ENDO: Hypothyroidism TSH normal, resume Synthroid 88 mcg p.o. daily Has been on prednisone since recent hospitalization. Currently prednisone 5 mg p.o. daily which will continue. PROPH: SCDs/h lovenox for DVT treatmentprophylaxis. Monitor for evidence of bleeding. Famotidine for stress ulcer prophylactic ACCESS: Peripheral IV providing adequate access at this time Patient is agreeable to intubation if needed. Patient and her daughter updated at bedside. Discussed with patient in the evening of 09/03. She was capacitated for medical decision-making. She states she is agreeable to intubation if needed for respiratory failure but wishes to be DNR in the setting of pulseless arrest. I have ordered alternate code intubation only. Will obtain records from [facility] 3 followup Pamela Johnson MD Sep 04, 2017 13:09
[2017-09-04 14:48] LABS: % SATURATION IRON PROFILE 12.2 % (20-50); IRON (FE) 18 MCG/DL (50-170); TOTAL IRON BINDING CAPACITY 147 MCG/DL (250-450)
[2017-09-04] MEDS ORDERED: MELATONIN 5 MG TAB PO PRN (19:45)
[2017-09-04] MEDS ORDERED: CYCLOBENZAPRINE HCL 10 MG TAB PO PRN (19:45)
[2017-09-04] MEDS: FAMOTIDINE 20 MG TAB PO SCH (20:27)
[2017-09-05] VITALS (16 sets, daily range): BP systolic 109–136; BP diastolic 58–75; PULSE 69–117; RESP 21–25; TEMP 97.7–100.8; O2SAT 91–100
[2017-09-05] MEDS: PIPERACIL-TAZO 3.375 GM PREMIX 50 ML IV SCH ×4 (01:01→19:52)
[2017-09-05] MEDS: SODIUM CHLORIDE 0.9% FLUSH 10 ML FLUSH IV FLUSH SCH ×3 (01:01→20:31)
[2017-09-05] MEDS ORDERED: FERR325T18 PO (03:41)
[2017-09-05] MEDS ORDERED: LEVO88TA2 PO (03:41)
[2017-09-05] MEDS ORDERED: SENN1TAB PO (03:41)
[2017-09-05] MEDS ORDERED: HYDR200T3 PO (03:41)
[2017-09-05] MEDS ORDERED: METO25TA3 PO (03:41)
[2017-09-05] MEDS ORDERED: HYDR5SYP10 PO (03:41)
[2017-09-05] MEDS ORDERED: CYCL10TA PO (03:41)
[2017-09-05] MEDS ORDERED: MAGICADU2 SWISH-SWAL (03:41)
[2017-09-05] MEDS ORDERED: IPRASOL INH (03:41)
[2017-09-05] MEDS ORDERED: MELA5 PO (03:41)
[2017-09-05] MEDS ORDERED: EVOX30CA2 PO (03:41)
[2017-09-05] MEDS ORDERED: OMEGCAP PO (03:41)
[2017-09-05] MEDS ORDERED: CITA40TA4 PO (03:41)
[2017-09-05] MEDS ORDERED: AMLO10TA2 PO (03:41)
[2017-09-05] MEDS ORDERED: SODI650T PO (03:41)
[2017-09-05] MEDS ORDERED: BIOTCAP PO (03:41)
[2017-09-05] MEDS ORDERED: THERTAB17 PO (03:41)
[2017-09-05] MEDS ORDERED: TRAM50TA PO (03:41)
[2017-09-05] MEDS ORDERED: GABA100C4 PO (03:41)
[2017-09-05] MEDS ORDERED: CULT10CA2 PO (03:41)
[2017-09-05] MEDS ORDERED: PRED5TAB PO (03:41)
[2017-09-05] MEDS ORDERED: MILKSUS4 PO (03:41)
[2017-09-05] MEDS ORDERED: OMEP20TA93 PO (03:41)
[2017-09-05] MEDS ORDERED: FLEEENE RECTAL (03:41)
[2017-09-05] MEDS ORDERED: ASPI81TA23 PO (03:41)
[2017-09-05] MEDS ORDERED: DULC10SU3 RECTAL (03:41)
[2017-09-05] MEDS ORDERED: TYLE325T PO (03:41)
[2017-09-05] MEDS ORDERED: CALC0.5C PO (03:41)
[2017-09-05] MEDS: CHLORHEXIDINE GLUCONATE 2 % 1 PACK (2 CLOTHS) TOP SCH (04:00)
[2017-09-05] MEDS: RESP: ALBUTEROL 2.5 MG/IPRATROPIUM 0.5 MG NEB (SCH) INH ×4 (04:26→21:52)
[2017-09-05 05:12] LABS: AUTOMATED NEUTROPHIL # 21.8 TH/MM3 (1.8-7.7); BASOPHIL % 0.1 % (0.0-2.0); EOSINOPHIL % 0.1 % (0.0-4.0); HEMATOCRIT 24.6 % (35.0-46.0); HEMOGLOBIN 8.1 GM/DL (11.6-15.3); LYMPHOCYTE # 1.4 TH/MM3 (1.0-4.8); MEAN CELL VOLUME 88.8 FL (80.0-100.0); MEAN CORPUSCULAR HEMOGLOBIN 29.2 PG (27.0-34.0); MEAN CORPUSCULAR HGB CONC 32.9 % (32.0-36.0); MEAN PLATELET VOLUME 7.7 FL (7.0-11.0); MONO % 3.7 % (0.0-8.0); MONOCYTE # 0.9 TH/MM3 (0-0.9); NEUT % 90.1 % (16.0-70.0); PLATELET COUNT 353 TH/MM3 (150-450); RED BLOOD COUNT 2.77 MIL/MM3 (4.00-5.30); RED CELL DISTRIBUTION WIDTH 15.5 % (11.6-17.2); WHITE BLOOD COUNT 24.2 TH/MM3 (4.0-11.0)
[2017-09-05 05:34] LABS: BICARBONATE 25.7 MEQ/L (21.0-32.0); CALCIUM 8.4 MG/DL (8.5-10.1); CREATININE 1.52 MG/DL (0.50-1.00)
[2017-09-05 05:38] LABS: RANDOM VANCOMYCIN 14.3 COMMENT
--- NOTE | 2017-09-05 06:01 | RADRPT ---
EXAM DATE: 09/05/2017 5:48 AM EDT AGE/SEX: 76 years / Female INDICATIONS: Short of breath. Cough. CLINICAL DATA: This is the patient's subsequent encounter. Patient reports that signs and symptoms h ave been present for 4 - 6 days and indicates a pain score of 0/10. MEDICAL/SURGICAL HISTORY: Congestive heart failure. None. [place] [facility] [place]. . FINDINGS: There has been no change in the bilateral interstitial and airspace pulmonary infiltrates compared to the prior study. The heart size is stable. No significant pleural effusions. No evidence of pneumoth orax. The bony structures are stable. CONCLUSION: No significant interval change. Electronically signed by: Sunil Terrazas MD 09/05/2017 6:00 AM EDT
[2017-09-05] MEDS: LEVOTHYROXINE SODIUM 88 MCG TAB PO SCH (06:27)
[2017-09-05] MEDS: ENOXAPARIN SODIUM 80 MG/0.8 ML SYRINGE SQ SCH ×2 (06:27→18:36)
[2017-09-05] MEDS: POTASSIUM CHLOR 20 MEQ PREMIX 100 ML IV PRN ×2 (07:44→09:56)
[2017-09-05] MEDS ORDERED: FUROSEMIDE 40 MG/4 ML VIAL IV PUSH ONE (08:45)
[2017-09-05] MEDS ORDERED: ONDANSETRON ODT 4 MG TAB PO PRN (08:45)
[2017-09-05] MEDS: LORazepam 2 MG/ML VIAL IV ONE ×2 (08:45→09:02)
[2017-09-05] MEDS ORDERED: POTASSIUM CHLOR 20 MEQ PREMIX 100 ML IV SCH (08:45)
[2017-09-05] MEDS ORDERED: CITALOPRAM HYDROBROMIDE 40 MG TAB PO SCH (09:00)
[2017-09-05] MEDS: DOCUSATE SODIUM 50 MG/SENNA 8.6 MG TAB PO SCH ×2 (09:00→20:31)
[2017-09-05] MEDS: GABAPENTIN 100 MG CAP PO SCH ×3 (09:02→18:36)
[2017-09-05] MEDS: FAMOTIDINE 20 MG TAB PO SCH ×2 (09:03→20:31)
[2017-09-05] MEDS: predniSONE 5 MG TAB PO SCH (09:03)
[2017-09-05] MEDS ORDERED: ETOMIDATE 20 MG/10 ML VIAL IV PUSH ONE (09:45)
[2017-09-05] MEDS ORDERED: ROCURONIUM INJ 50 MG/5 ML VIAL IV ONE (09:45)
--- NOTE | 2017-09-05 09:55 | HHI.CCPN ---
Subjective Remarks/Hospital Course Patient history is limited due to BiPAP mask in place. History is obtained from patient's daughter and review of records from [facility]. 76-year-old female with past medical history of hypertension, COPD, emphysema,, Sjogren's syndrome, rheumatoid arthritis (on plaquenil), CKD stage IV (followed by Dr. Jonas with plan for eventual home PD), hypothyroidism, chronic anemia with iron deficiency, GERD who presented to [facility] emergency department via [facility] from [facility]. She has recent hospitalization at [facility] on 07/24. She was discharged to [facility] on 08/05. Her daughter states that during this hospitalization she was treated for bilateral pneumonia and had tested positive for rhinovirus. Reportedly echo during that hospitalization showed an EF of 50%. Yesterday she left [facility] for a 4-hour home visit. Her daughter states she was fatigued and laid in bed. She was SOB. She has had a cough productive of clear sputum for 3 days. She denies any chest pain or hemoptysis. She has experienced bilateral lower extremity swelling. Her daughter reports that she had a fever at the long-term however what is documented on transfer paperwork is temp of 97.4. Patient denies any issues with this for nausea. She has vomited every morning for the last week a few minutes after swallowing her morning medications. Upon arrival she is afebrile with night temp at 98.8. She is in A. fib with RVR with rate in the 110s. Blood white blood cell count is 24.6, creatinine of 1.49 , troponin 0 0.21, BNP 1530. She has received Lasix 60 mg IV and has been placed on BiPAP 10/5 and 100% for increased work of breathing. Blood cultures have been obtained and she has been administered vancomycin, Zosyn, DuoNeb in the ED. She states she feels improved compared with arrival. She is agreeable to intubation if needed. 09/04 Diuresed net negative 1650. Was off Bipap to 6 L NC for couple of hours and then placed back on Bipap for desaturation. FIO2 weaned down to 55 from 100 % yesterday. Afebrile. No CP. Cough nonproductive. HAve not yet received records from [facility]. Will request them again. Subjective: 09/05 Net negative 1760. Did not sleep well last night, worsening hypoxia. Persistent bilateral rales and infiltrates on CXR. She is fatigued and says she can't take it anymore. Initially refusing intubation and indicating she was wanting comfort measures only, however upon discussion with patient and her daughter, Denita, she was agreeable to intubation. Records received from [facility]. She was admitted 07/25/17 with myalgia, headache, cough, weakness, vomiting, diarrhea, visual hallucinations. She was treated with Zosyn and Zithromax and then Rocephin and doxycycline. Sputum culture 07/25 and blood cultures from 07/24 and 07/26 were negative. Urine Legionella and pneumococcal antigens were negative. Viral respiratory PCR was positive for rhino virus 07/27/17. Influenza was negative. CT chest 07/25 showed right upper lobe pneumonia. Echo 07/27/17 showed LVH with ejection fraction 60-65%, diastolic dysfunction, mild to moderate mitral regurgitation. Objective Vital Signs Date Time Temp Pulse Resp B/P (MAP) Pulse Ox O2 Delivery O2 Flow Rate FiO2 09/05/17 08:10 99 Non-Rebreather 100 09/05/17 07:00 117 09/05/17 07:00 98.5 21 136/75 (95) 09/04/17 21:03 14.00 Intake and Output 09/05/17 09/05/17 09/06/17 08:00 16:00 00:00 Intake Total 340 ml Output Total 1500 ml Balance -1160 ml Result Diagram: 09/05/17 0414 09/05/17 0414 Other Results Microbiology Date/Time Source Procedure Growth Status 09/03/17 21:25 Nasal Aspirate Influenza Types A,B Antigen (LAKHWINDER) - Final NEGATIVE FOR FLU A AND B ANTIGEN.... Complete 09/03/17 19:25 Urine Catheterized Urine Legionella Antigen - Final PRESUMPTIVE NEGATIVE FOR LEGIONELLA P... Complete 09/03/17 19:25 Urine Catheterized Urine Streptococcus pneumoniae Antigen (M - Final PRESUMPTIVE NEGATIVE FOR STREPTOCOCCU... Complete Objective Remarks GENERAL: Elderly overweight female , Bipap mask has been removed and she in on NR. she is tachypneic. SKIN: Warm and dry, adequately perfused. HEAD: Atraumatic. Normocephalic. EYES: Pupils equal and round, 2 mm and reactive bilaterally.. No scleral icterus. No injection or drainage. ENT: NR in place. NECK: Trachea midline. Sitting up in bed, unable to appreciate JVD CARDIOVASCULAR: Tachycardic, regular, rate of 102, no murmurs rubs or gallops appreciated. RESPIRATORY: Tachypneic with high work of breathing. Bilateral anterior and posterior rales. GASTROINTESTINAL: Abdomen soft, non-tender, nondistended. Bowel sounds present. : Purewick catheter in place with light yellow urine output. MUSCULOSKELETAL: Extremities without clubbing, cyanosis. 1+ pitting bipedal edema. No palpable cords or erythema. NEUROLOGICAL: Awake but lethargic, oriented, moving all extremities, oriented. A/P Assessment and Plan NEURO: Peripheral neuropathy Depression Insomnia Continue Flexeril 10 mg p.o. 3 times daily, Neurontin 100 mg's p.o. 3 times daily hold citalopram Propofol for sedation. Fentanyl for sedation. Daily sedation vacation Target RASS -2 RESP: Acute hypoxemic respiratory failure ARDS, moderate severity Etiology of bilateral pulmonary infiltrates is unclear. Not seeing significant improvement with diuresis. She is now fatigued on Bipap, agrees to intubation though states she would not want prolonged intubation or trach. Will proceed with bronchoscopy. Have been unable to obtain CT chest because of respiratory status, will proceed with it now. Persistent bilateral infiltrates, may be acute lung injury/inflammatory in nature. Working up for infection/heart failure now, consider trial of steroids at increased dose. Has been on prednisone 5 mg daily since d/c from [facility], will continue. Request PFTs from Dr. Mcmullen's office performed Monday. DuoNeb every 6 hours. Albuterol every 2 hours as needed. CV: Hypertension Paroxysmal atrial fibrillation Hyperlipidemia Diastolic heart failure Lactic acid normal Diuresed with lasix, net negative >3.5 L since admission. Echo at [facility] with ejection fraction 60-65%, diastolic dysfunction, mild left atrial dilation Mild/moderate MR Repeat echo pending EKG in the emergency department has significant artifact. It appears consistent with A. fib. No remarkable ST changes. Serial troponins flat at 0.2 Aspirin 325 mg daily . GI: GERD Hiatal hernia Famotidine as per below Insert OGT, initiate tube feeds after bronch. Jevity 1.5 with goal rate 50 mL/ h. Follow-up nutrition recommendations FEN/RENAL: CKD stage IV Acute hypokalemia Insert Hoffman. Previously had Purewick catheter prior to sedation. ICU electrolyte placement protocol. Followed by Dr. Jonas as outpatient. Classes for home peritoneal dialysis were tentatively scheduled for January. ID: Leukocytosis blood culture 09/03 - negative. Influenza screen negative. Unable to produce sputum. Bronchial washings sent from [facility] 09/05 - secretions appear clear. Continue vancomycin with pharmacy dosing, Zosyn (dose for creatinine clearance of 37), azithromycin. urine Legionella and pneumococcal antigen negative At [facility], + for Rhinovirus 07/24 . IMMUNO: Sjogren's syndrome Rheumatoid arthritis Hold Plaquenil for now due to concern for sepsis. Home dose is 400 mg p.o. daily Evoxac 30 mill grams p.o. 3 times daily for sjogrens is not on formulary. HEME: Chronic anemia Iron deficiency Bilateral posterior tibial venous thrombosis. Obtained bilateral lower extremity ultrasound - results indicate bilateral below knee DVT, bilateral posterial tibial veins. She is symptomatic and also at high risk of extension due to immobility. I am also not able to r/o PE at this time because not candidate for VQ with bilateral infiltrates and not candidate for CT PA due to CKD. Therefore, favor treatment in this situation. Discussed with patient and her daughter. On lovenox 1mg/kg q12. Continue ferrous sulfate 325 mg p.o. twice daily. Received iron infusion on . ENDO: Hypothyroidism TSH normal, resume Synthroid 88 mcg p.o. daily Has been on prednisone since recent hospitalization. Currently prednisone 5 mg p.o. daily which will continue. Monitor bedside glucose while on steroids and administer low-dose insulin sliding scale as indicated PROPH: SCDs/ lovenox for DVT treatmentp. Monitor for evidence of bleeding. Famotidine for stress ulcer prophylactic ACCESS: Peripheral IV providing adequate access at this time Discussed with patient in the evening of 09/03. She was capacitated for medical decision-making. She states she is agreeable to intubation if needed for respiratory failure but wishes to be DNR in the setting of pulseless arrest. I have ordered alternate code intubation only. 09/05 Lengthy discussion with patient who was initially resistant to intubation and making comments regarding consideration of comfort measures. Ultimately she was agreeable to intubation. She states her daughter is her healthcare surrogate. She indicated she would not want prolonged intubation or trach Patient is critically ill with worsening respiratory failure despite BiPAP. Required intubation and stabilization. Critical care time 45 minutes exclusive of separately billable procedures Pamela Johnson MD Sep 05, 2017 09:55
[2017-09-05] MEDS ORDERED: MIDAZOLAM HCL 5 MG/ML VIAL (1 ML) ONE (10:46)
[2017-09-05] MEDS ORDERED: METOPROLOL TARTRATE 5 MG/5 ML VIAL ONE (11:02)
--- NOTE | 2017-09-05 11:02 | PD.PROCEDR ---
Procedure Note Procedure PROCEDURE NOTE PROCEDURE: Endotracheal intubation INDICATION: Acute hypoxemic respiratory failure, failed BiPAP therapy. DETAILS OF PROCEDURE: The patient was placed in optimal position and preoxygenated with 100% FiO2 via [id number]. Oximeter oxygen saturation of 94% was obtained prior to direct laryngoscopy. The patient was administered Etomidate 20 mg IV for sedation, Rocuronium 50 mg IV. Direct laryngoscopy was performed with a 3 glidescope blade (rheumatoid arthritis) and a grade I Cormack-Lehane view was obtained, however unable to direct ETT anteriorly to pass tube. Bagged patient and then obtained second look with 3 MAC using standard stylet bent sharply anteriorly and 8.0 ETT was advanced on first attempt, visualized passing through the cords. Correct placement was confirmed with colorimetric CO2 detector. Breath sounds were equal bilaterally. No sounds auscultated over the stomach. The endotracheal tube was secured with a commercial tube pace at a depth of 24 cm at the lips. The patient was connected to the ventilator. The patient tolerated the procedure well without any apparent complication. Bronchoscopy immediately followed an endotracheal tube was visualized to be in satisfactory position above the ricky. Pamela Johnson MD Sep 05, 2017 11:02
--- NOTE | 2017-09-05 11:05 | PD.PROCEDR ---
Procedure Note Procedure Date: 09/05/17 Procedure: Fiberoptic bronchoscopy with bronchoalveolar lavage, diagnostic Indication: Acute respiratory failure with non-resolving bilateral infiltrates Details of procedure: Informed consent was obtained from patient after discussion of risks, benefits, alternatives. The patient was intubated prior to procedure. Placed on 100% FiO2.. She was on sedation with propofol 50 mg/kg/min, fentanyl 100 mcg IV, Versed 5 mg IV, fentanyl drip.. I entered the 8.0 endotracheal tube with a flexible bronchoscope. The bronchoscope was advanced into RML and 50 mL of saline was instilled with 35 mL of clear return which was sent for viral, bacterial, fungal, AFB cultures. Bronchoscope was advanced into all pulmonary subsegments which were explored. There were no significant secretions. No significant mucous plugs. No endobronchial lesions. Patient tolerated the procedure well without apparent complication. Pamela Johnson MD Sep 05, 2017 11:05
[2017-09-05] MEDS ORDERED: METOPROLOL TARTRATE 5 MG/5 ML VIAL IV PUSH SCH (11:15)
[2017-09-05] MEDS ORDERED: MIDAZOLAM HCL 5 MG/ML VIAL (1 ML) IV ONE (11:15)
[2017-09-05] MEDS ORDERED: MIDAZOLAM HCL 2 MG/2 ML VIAL IV PUSH PRN (11:30)
[2017-09-05] MEDS ORDERED: POTASSIUM CHLORIDE 25 MEQ EFFERVESCENT TAB OG-TUBE ONE (11:45)
[2017-09-05] MEDS: fentaNYL DRIP 250 ML IV PRN (12:00)
[2017-09-05] MEDS: PROPOFOL 1000 MG/100 ML INJ 100 ML IV PRN ×3 (12:00→20:48)
--- NOTE | 2017-09-05 12:41 | PD.CONS ---
History of Present Illness Service Infectious disease Consult Requested By Dr. Johnson Reason for Consult Evaluate patient with bilateral pulmonary infiltrates, not resolving Primary Care Physician Unknown Diagnoses: History of Present Illness Patient seen and examined. Records reviewed. Records from [facility], as well as from [facility] reviewed. I also got some history from the patient's son-in-law. Patient is a 76-year-old female, came from a rehab facility, brought into the hospital for evaluation of shortness of breath. Patient's history significant for a recent hospitalization at [facility] from July 24 - August 06. Workup at that time showed evidence of bilateral pneumonia. She also had an abnormal urinalysis. Sputum culture grew normal respiratory tyler. Her viral testing was positive for rhino enterovirus. She was seen by ndt inspector as well as infectious disease during that hospitalization. According to the son-in-law patient was on nasal O2 during the whole hospital stay, and from there she was discharged to a rehab facility on nasal O2. She was on oral antibiotics in the rehab facility. Patient reportedly was doing really well the first week after discharge, but after that she started developing fatigue. She has had 3 chest x-ray done in the nursing facility. The chest x-ray on August 07 showed bilateral upper lobe infiltrates. Chest x-ray August 17 showed some improvement in the right upper lobe infiltrate, no mention of the left upper lobe infiltrate. Chest x-ray August 23 is now showing by basilar consolidation. There was no mention of any fever. Patient apparently has had problem with nausea and vomiting in the morning usually after she takes her medications. However throughout the day she tolerates her diet. She has had some cough but has not really been worsening. Patient has not complained of any chest pain. One day prior to her admission, her family took her out for about 4 hours. She was very weak, and they did not really notice any significant change in her respiratory status. According to the son-in-law, the plan was for the patient to be discharged to home on August 04. On the day of admission patient became short of breath, and she was brought into the hospital for further evaluation and treatment. She ended up getting intubated. Her chest x-ray has shown bilateral pulmonary infiltrates. Her WBC is elevated at more than 20,000. Urinalysis is unremarkable. BNP is 400+. Previous echo at [facility] showed good ejection fraction of greater than 50%. Patient is currently on Zithromax, Zosyn, and vancomycin. She is afebrile. Urine for Legionella and pneumococcal antigen are negative. Influenza antigen is negative. Infectious disease consultation has been requested to evaluate the patient with persistent bilateral pulmonary infiltrates. Review of Systems ROS Limitations: Clinical Condition, Intubated Past Family Social History Allergies: Coded Allergies: codeine (Verified Allergy, Unknown, Hallucinations, 09/03/17) Past Medical History COPD/emphysema, she was followed by Dr. Mcmullen while at [facility] CKD stage IV. her daughter states this was secondary to long-term NSAID use. Her aerospace engineer is Dr. Jonas Chronic atrial fibrillation; order dispatcher chief is Dr. Whitley Hyperlipidemia Sjogren's syndrome, rheumatoid arthritis, final cleaner is Dr. Mays Hypothyroidism Chronic anemia she has not had blood transfusion but had an IV iron infusion on 08/28/17 at [facility] Vitamin D deficiency Insomnia Osteoarthritis GERD Past Surgical History Hysterectomy Varicose vein stripping Colonoscopy 6 years ago was negative She had an EGD in fall 2016 for workup for anemia which was reportedly negative Reported Medications I attest that I obtained, updated or reviewed the home and current medications. Reported Meds & Active Scripts Active Reported Dulcolax Supp (Bisacodyl) 10 Mg Supp 10 Mg RECTAL DAILY PRN Milk of Magnesia Liq (Magnesium Hydroxide) 400 Mg/5 Ml Susp 30 Ml PO PRN Fleet Enema Six Pack 7-19 gm/118Ml (Sodium Phosphates) 19 Gram-7 Gram/118 Ml Matilda 118 Ml RECTAL PRN Amlodipine (Amlodipine Besylate) 10 Mg Tab 10 Mg PO DAILY Metoprolol Tartrate 25 Mg Tab 25 Mg PO BID Duoneb (Ipratropium-Albuterol Neb) 0.5-2.5 Mg/3 Ml Neb 1 Nebule INH Q6HR NEB Sodium Bicarbonate 650 Mg Tab 650 Mg PO TIDPC Tramadol (Tramadol HCl) 50 Mg Tab 50 Mg PO Q12HR PRN 14 Days Aspirin EC (Aspirin) 81 Mg Tabdr 81 Mg PO DAILY@1600 Calcitriol 0.5 Mcg Cap 0.5 Mcg PO DAILY Citalopram (Citalopram Hydrobromide) 40 Mg Tab 40 Mg PO DAILY Flexeril (Cyclobenzaprine HCl) 10 Mg Tab 10 Mg PO TID Omeprazole 20 Mg Tab 20 Mg PO DAILY Magic Mouthwash Adult Liq (Multi-Ingredient Mouthwash/Gargle) 120 Ml Susp 5 Ml SWISH-SWAL ACHS Each 5mL contains: Nystatin 200,000units, Diphenhydramine 4.25mg, Viscous Lidocaine 10mg, Trevino syrup 0.8 mL Tylenol (Acetaminophen) 325 Mg Tab 650 Mg PO Q4H PRN Hydrocodone/Homatropine 5-1.5 mg/5Ml (Hydrocodone W/ Homatropine) 5 Mg-1.5 Mg/5 Ml Syp 5 Ml PO Q4HR PRN Evoxac (Cevimeline HCl) 30 Mg Cap 30 Mg PO TID Gabapentin 100 Mg Cap 100 Mg PO TID Hydroxychloroquine (Hydroxychloroquine Sulfate) 200 Mg Tab 400 Mg PO DAILY Takw with food Levothyroxine (Levothyroxine Sodium) 88 Mcg Tab 88 Mcg PO DAILY Thera-M (Multiple Vitamins W/ Minerals) 1 Tab 1 Tab PO DAILT [place]-3 Fish Oil/Vitamin (Fish Oil-Cholecalciferol) 1,000-1,000 Mg Cap 1 Cap PO DAILY Ferrous Sulfate 325 Mg (65 Mg Iron) Tablet 325 Mg PO BID [facility] (Lactobacillus-Inulin) 15 Billion Cell Cap 1 Cap PO DAILY 14 Days Biotin 5 Mg Cap 600 Mcg PO DAILY Senna-Plus (Sennosides-Docusate Sodium) 8.6-50 Mg Tab 1 Tab PO DAILY Prednisone 5 Mg Tab 5 Mg PO DAILY Melatonin 5 Mg Tab 3 Mg PO HS PRN Active Ordered Medications Current Medications Medications (Trade) Dose Ordered Sig/Tony Route Start Time Stop Time Status Last Admin Potassium Chloride 100 ml @ 50 mls/hr Q2H PRN IV 09/03/17 09:45 Potassium Chloride 100 ml @ 50 mls/hr Q2H PRN IV 09/03/17 09:45 (K-Lyte Cl Eff) 50 meq UNSCH PRN PO 09/03/17 09:45 09/05/17 06:27 Potassium Chloride 100 ml @ 25 mls/hr UNSCH PRN IV 09/03/17 09:45 Potassium Chloride 100 ml @ 50 mls/hr Q2H PRN IV 09/03/17 09:45 09/05/17 09:56 Magnesium Sulfate 4 gm/Sodium Chloride 100 ml @ 50 mls/hr UNSCH PRN IV 09/03/17 09:45 (Mag-Ox) 800 mg UNSCH PRN PO 09/03/17 09:45 Magnesium Sulfate 2 gm/Sodium Chloride 100 ml @ 50 mls/hr UNSCH PRN IV 09/03/17 09:45 (K-Phos) 2,000 mg Q4H PRN PO 09/03/17 09:45 Sodium Phosphate 30 mmol/Sodium Chloride 250 ml @ 42 mls/hr UNSCH PRN IV 09/03/17 09:45 (K-Phos) 2,000 mg UNSCH PRN PO/TUBE 09/03/17 09:45 Potassium Phosphate 30 mmol/ Sodium Chloride 260 ml @ 42 mls/hr UNSCH PRN IV 09/03/17 09:45 Pharmacy Profile Note 0 ml @ 0 mls/hr UNSCH OTHER 09/03/17 10:30 Azithromycin 500 mg/Sodium Chloride 250 ml @ 250 mls/hr Q24H IV 09/03/17 12:00 09/04/17 12:27 Piperacillin Sod/ Tazobactam Sod 50 ml @ 100 mls/hr Q6H IV 09/03/17 13:00 09/05/17 06:27 (NS Flush) 2 ml UNSCH PRN IV FLUSH 09/03/17 10:45 (NS Flush) 2 ml BID IV FLUSH 09/03/17 21:00 09/05/17 09:04 (Tylenol) 650 mg Q6H PRN PO 09/03/17 10:45 (Duoneb Neb) 1 ampule Q6HR NEB INH 09/03/17 16:00 09/05/17 11:15 (Albuterol Neb) 2.5 mg Q2HR NEB PRN INH 09/03/17 10:45 ([facility]) 1 Q361D XX 09/03/17 10:45 09/03/17 10:45 (Chlorhexidine 2% Cloth) 3 pack Taper DAILY@04 TOP 09/04/17 04:00 08/31/18 03:59 09/05/17 04:00 (Chlorhexidine 2% Cloth) 3 pack UNSCH PRN TOP 09/03/17 10:45 (Nancy-Colace) 1 tab BID PO 09/03/17 21:00 09/04/17 09:31 (Milk Of Magnesia Liq) 30 ml Q12H PRN PO 09/03/17 10:45 (Senokot) 17.2 mg Q12H PRN PO 09/03/17 10:45 (Dulcolax Supp) 10 mg DAILY PRN RECTAL 09/03/17 10:45 (Lactulose Liq) 30 ml DAILY PRN PO 09/03/17 10:45 Vancomycin HCl 1000 mg/Sodium Chloride 250 ml @ 250 mls/hr Q24H IV 09/04/17 08:00 Future Hold 09/04/17 08:15 (Deltasone) 5 mg DAILY PO 09/03/17 13:00 09/05/17 09:03 (Lovenox Inj) 70 mg Q12H SQ 09/03/17 18:00 09/05/17 06:27 (Pepcid) 10 mg BID PO 09/04/17 21:00 09/05/17 09:03 (Neurontin) 100 mg TID PO 09/05/17 09:00 09/05/17 09:02 (CeleXA) 40 mg DAILY PO 09/05/17 09:00 Future Hold 09/05/17 09:02 (Flexeril) 10 mg Q8H PRN PO 09/04/17 19:45 (Synthroid) 88 mcg DAILY@0600 PO 09/05/17 06:00 09/05/17 06:27 (Zofran Odt) 4 mg Q6H PRN PO 09/05/17 08:45 09/05/17 09:02 Propofol 100 ml @ 2.25 mls/hr TITRATE PRN IV 09/05/17 09:45 Fentanyl Citrate 250 ml @ 5 mls/hr TITRATE PRN IV 09/05/17 09:45 (Lopressor Inj) 5 mg ONCE IV PUSH 09/05/17 11:15 09/05/17 18:00 (Peridex 0.12% Liq) 15 ml BID@08,20 MT 09/05/17 20:00 (Versed Inj) 2 mg Q15M PRN IV PUSH 09/05/17 11:30 Family History Father in the war and medical history is unknown Mother at age 88 due to MRSA sepsis. She had cervical cancer. She also had rheumatoid arthritis Daughter has rheumatoid arthritis and Sjogren's Social History Came from [facility] Remote smoking history No ETOH abuse NO illicit srugs Physical Exam Vital Signs Vital Signs Date Time Temp Pulse Resp B/P (MAP) Pulse Ox O2 Delivery O2 Flow Rate FiO2 09/05/17 12:30 98 60 09/05/17 10:55 91 100 09/05/17 10:45 92 100 09/05/17 08:10 99 Non-Rebreather 100 09/05/17 07:00 117 09/05/17 07:00 98.5 94 21 136/75 (95) 97 09/05/17 07:00 97 Bi-Pap 60 09/05/17 04:26 94 50 09/05/17 03:45 84 09/05/17 03:45 99.0 84 22 134/58 (83) 96 09/05/17 03:45 96 Bi-Pap 50 09/05/17 00:35 96 50 09/04/17 23:44 105 09/04/17 23:44 96 Bi-Pap 50 09/04/17 23:44 98.6 79 21 139/71 (93) 96 09/04/17 21:25 97 50 09/04/17 21:03 99 Partial Rebreather 14.00 09/04/17 19:16 99 Bi-Pap 50 09/04/17 19:16 98.5 83 20 131/77 (95) 99 09/04/17 19:00 81 09/04/17 17:00 97 50 09/04/17 15:00 100 09/04/17 15:00 98.8 94 20 132/67 (88) 93 09/04/17 15:00 88 Venturi Mask 50 Physical Exam GENERAL: Patient is a well-nourished, well-developed female, sedated on the vent, not in respiratory distress. SKIN: Cool and dry. No generalized rash, no ecchymoses and no evidence of embolic lesions. HEAD: Atraumatic. Normocephalic. No temporal wasting, or tenderness. EYES: [place] conjunctiva. No petechia or hemorrhage. Pupils equal, round and reactive to light. No scleral icterus. No injection or drainage. EARS, NOSE AND THROAT: Nose without bleeding or purulent nasal discharge. She is orally intubated. NECK: Trachea midline. Supple and not tender, no meningeal signs CARDIOVASCULAR: Regular rate and rhythm. No murmurs, rubs or gallops heard RESPIRATORY: Bilateral rales. No wheezing or rhonchi. Equal breath sounds bilaterally. ABDOMEN: Soft, nondistended, no reaction to deep palpation.. Bowel sounds present and normoactive. No organomegaly. EXTREMITIES: No clubbing, cyanosis, or edema. No joint effusion noted. NEUROLOGICAL: Sedated. No Babinski or ankle clonus. PSYCHIATRIC: Unable to assess. LINE: No evidence of infection Laboratory Laboratory Tests Test 09/04/17 17:02 09/05/17 04:14 09/05/17 10:50 09/05/17 12:12 Potassium Level 3.7 3.4 White Blood Count 24.2 Red Blood Count 2.77 Hemoglobin 8.1 Hematocrit 24.6 Mean Corpuscular Volume 88.8 Mean Corpuscular Hemoglobin 29.2 Mean Corpuscular Hemoglobin Concent 32.9 Red Cell Distribution Width 15.5 Platelet Count 353 Mean Platelet Volume 7.7 Neutrophils (%) (Auto) 90.1 Lymphocytes (%) (Auto) 6.0 Monocytes (%) (Auto) 3.7 Eosinophils (%) (Auto) 0.1 Basophils (%) (Auto) 0.1 Neutrophils # (Auto) 21.8 Lymphocytes # (Auto) 1.4 Monocytes # (Auto) 0.9 Eosinophils # (Auto) 0.0 Basophils # (Auto) 0.0 CBC Comment DIFF FINAL Differential Comment Blood Urea Nitrogen 23 Creatinine 1.52 Random Glucose 66 Calcium Level 8.4 Sodium Level 140 Chloride Level 103 Carbon Dioxide Level 25.7 Anion Gap 11 Estimat Glomerular Filtration Rate 33 B-Type Natriuretic Peptide 401 Random Vancomycin Level 14.3 Blood Gas Puncture Site LT RADIAL Blood Gas Patient Temperature 98.6 Blood Gas HCO3 27 Blood Gas Base Excess 2.4 Blood Gas Oxygen Saturation 97 Arterial Blood pH 7.38 Arterial Blood Partial Pressure CO2 46 Arterial Blood Partial Pressure O2 197 Arterial Blood Oxygen Content 11.7 Arterial Blood Carboxyhemoglobin 1.3 Arterial Blood Methemoglobin 1.4 Blood Gas Hemoglobin 8.3 Oxygen Delivery Device VENTILATOR Blood Gas Ventilator Setting [id number]/[id number] Blood Gas Inspired Oxygen 100 Date/Time Source Procedure Growth Status 09/03/17 06:35 Blood Peripheral Aerobic Blood Culture - Preliminary NO GROWTH IN 2 DAYS Resulted 09/03/17 06:35 Blood Peripheral Anaerobic Blood Culture - Preliminary NO GROWTH IN 2 DAYS Resulted 09/05/17 10:50 Bronchial Washings Right Mid Lobe Fungal Smear Pending Received 09/05/17 10:50 Bronchial Washings Right Mid Lobe Fungal Culture Pending Received 09/03/17 19:25 Urine Catheterized Urine Legionella Antigen - Final PRESUMPTIVE NEGATIVE FOR LEGIONELLA P... Complete 09/03/17 19:25 Urine Catheterized Urine Streptococcus pneumoniae Antigen (M - Final PRESUMPTIVE NEGATIVE FOR STREPTOCOCCU... Complete Result Diagram: 09/05/17 0414 09/05/17 0414 Imaging RADIOLOGY STUDIES/FILMS REVIEWED Last 72 hours Impressions Chest X-Ray 09/05/17 0000 Signed Impressions: CONCLUSION: No significant interval change. Chest X-Ray 09/04/17 0600 Signed Impressions: CONCLUSION: No significant interval change. Chest X-Ray 09/03/17 0614 Signed Impressions: CONCLUSION: Multifocal airspace consolidation. Findings consistent with multifocal pneumoni a. Renal Ultrasound 09/03/17 0000 Signed Impressions: CONCLUSION: 1. No obstructive uropathy or other acute abnormality demonstrated. 2. Small, benign cyst of the right upper pole. Lower Extremity Ultrasound 09/03/17 0000 Signed Impressions: CONCLUSION: Bilateral below the knee lower extremity DVT as above. Assessment and Plan Assessment and Plan IMPRESSION Bilateral pulmonary infiltrates, etiology? - has been treated for PNA at [facility] - ?new PNA, aspiration, has had problem with vomiting - ?other inflammatory etiology Respiratory failure, with zoran infiltrates - need to R/O PE, has zoran LE DVT Zoran LE DVT Known RA, Sjogren syndrome CKD RECOMMENDATION Check ESR, CRP, LDH Check viral resp panel Follow C/S CT chest Continue empiric Abx: Zosyn, Zithromax Continue Vanco for MRSA coverage Monitor progress I will follow along with you Thank you for this consultation Discussed Condition With Spoke with son-in-law Kady Corcoran MD Sep 05, 2017 12:41
--- NOTE | 2017-09-05 13:18 | RADRPT ---
EXAM DATE: 09/05/2017 12:01 PM EDT AGE/SEX: 76 years / Female INDICATIONS: Post intubation. CLINICAL DATA: This is the patient's subsequent encounter. Patient reports that signs and symptoms h ave been present for 3 days and indicates a pain score of Nonresponsive. MEDICAL/SURGICAL HISTORY: Chronic obstructive pulmonary disease. Hysterectomy. COMPARISON: [facility] [place], 09/[place]. . FINDINGS: Portable AP views of the chest demonstrate a normal-sized cardiac silhouette. Endotracheal tube tip m easures 4.6 cm from the ricky. Nasogastric tube is looped in the stomach. Multiple EKG lines overlie the patient. There is abnormal airspace consolidation bilaterally in a patchy distribution. No pleur al effusion or pneumothorax is identified. Bones demonstrate no acute finding. CONCLUSION: 1. Endotracheal tube is in appropriate position with tip measuring approximately 4.6 cm from the car keisha. 2. Patchy bilateral airspace consolidation is stable. Electronically signed by: Jorden King MD 09/05/2017 1:17 PM EDT
[2017-09-05] MEDS: AZITHROMYCIN INJ 500 MG in SODIUM CHLOR 0.9% 250 ML INJ 250 ML IV SCH (14:15)
[2017-09-05] MEDS: VANCOMYCIN 1,000 MG/NS 250 ML IV SCH ×2 (17:29)
--- NOTE | 2017-09-05 19:00 | MB ---
cc: Eufemia Fall MD DATE: 09/05/2017 REASON FOR CONSULTATION: Respiratory failure, pneumonia. HISTORY OF PRESENT ILLNESS: Mrs. Méndez is a 76-year-old, female, admitted with pneumonia, worsening respiratory distress, requiring intubation and mechanical ventilation. The patient was recently hospitalized on 07/25 through 08/06 at [facility]. She was treated with antibiotic therapy, clinically improved, discharged to a alf. However, now again deteriorated and now, she is here at this facility. She is now here at [facility]. A chest x-ray with bibasilar lung infiltrates. The patient does not relate any history. The history is obtained from her records. PAST MEDICAL HISTORY: COPD, chronic kidney disease stage IV, atrial fibrillation, hyperlipidemia, Sjogren syndrome, hypothyroidism, chronic anemia, degenerative joint disease, previous hysterectomy, venous stripping. ALLERGIES: CODEINE. FAMILY HISTORY: Noncontributory. SYSTEMS REVIEW: A 12-point review of systems as per HPI and past history; otherwise, negative. MEDICATIONS: Metoprolol, sedation as needed, gabapentin, levothyroxine, Pepcid, enoxaparin prophylaxis, albuterol, ipratropium nebulization, piperacillin, tazobactam, prednisone 5 mg daily, Zithromax. PHYSICAL EXAMINATION: VITAL SIGNS: Temperature 98.6 degrees Fahrenheit, today's max 100.8, pulse 90, respirations 24, blood pressure 112/70, oxygen saturation 98%, 60% inspired oxygen fraction on the ventilator. IMAGING: Chest x-ray, bilateral lung infiltrates. A CT scan of the chest pending at this time. IMPRESSION: 1. Respiratory failure. 2. Bilateral pneumonia. 3. Sjogren syndrome. 4. History of bilateral lower extremity deep venous thrombosis. PLAN: The patient is on ventilatory support at present, which obviously needs to be continued. Antibiotic therapy is managed by infectious disease. CT scan of the chest is pending at this time. Will review once available. The weaning process will be initiated as tolerated. Bronchodilator therapy will be contained. Will follow the patient's course along with you and depending on progress, proceed further. PROGNOSIS: Her prognosis with her multiple medical problems is poor. Eufemia Fall MD WWW/GEOVANY/vh , 05:13 PM , 05:52 PM
[2017-09-05] MEDS: CHLORHEXIDINE 0.12% (ORAL KIT) 15 ML CUP MT SCH (20:31)
[2017-09-05] MEDS ORDERED: ATROPINE SULFATE 1 MG/10 ML SYRINGE ONE (22:19)
[2017-09-05] MEDS ORDERED: EPINEPHrine HCL (1:10,000) 1 MG/10 ML SYRINGE ONE (22:19)
--- NOTE | 2017-09-05 22:45 | RADRPT ---
EXAM DATE: 09/05/2017 10:39 PM EDT AGE/SEX: 76 years / Female INDICATIONS: Respiratory failure, pneumonia. CLINICAL DATA: This is the patient's initial encounter. Patient reports that signs and symptoms have been present for 1 day and indicates a pain score of Nonresponsive. MEDICAL/SURGICAL HISTORY: Cardiovascular disease. Gastroesophageal reflux disease. Renal failure, Sjogren's disease. Hysterectomy. RADIATION DOSE: 9.37 CTDI (mGy) COMPARISON: [facility] – [place] CHEST SINGLE AP, 09/05/2017. . TECHNIQUE: Multiple contiguous axial images were obtained through the chest without contrast. Image s were obtained in suspended respiration using multiple row detector helical technique. Using automa debbie exposure control and adjustment of the mA and/or kV according to patient size, radiation dose was kept as low as reasonably achievable to obtain optimal diagnostic quality images. FINDINGS: There are diffuse bilateral alveolar and interstitial infiltrates with endotracheal tube and enteric tubes noted. Large bilateral pleural effusions are present. There is coronary artery calcification an d atherosclerotic calcification of the aorta noted. There is mild aneurysmal dilatation of the ascend ing aorta measuring 4.1 x 4 cm in AP transverse dimension. There is adenopathy in the mediastinum inc luding a precarinal 1.6 cm short axis node, mildly prominent AP window lymph nodes, subcarinal adenop athy and mildly prominent superior mediastinal lymph nodes. CONCLUSION: 1. Large bilateral pleural effusions, patchy bilateral consolidation and adenopathy. 2. Mild aneurysmal dilatation of the aorta. 3. Atherosclerosis. Electronically signed by: Iker Luna MD 09/05/2017 10:44 PM EDT
[2017-09-06] VITALS (19 sets, daily range): BP systolic 98–138; BP diastolic 51–67; PULSE 55–76; RESP 24; TEMP 97.6–98.5; O2SAT 98–100
[2017-09-06] MEDS: PIPERACIL-TAZO 3.375 GM PREMIX 50 ML IV SCH ×4 (01:09→17:16)
[2017-09-06] MEDS: PROPOFOL 1000 MG/100 ML INJ 100 ML IV PRN ×4 (03:14→23:04)
[2017-09-06] MEDS: CHLORHEXIDINE GLUCONATE 2 % 1 PACK (2 CLOTHS) TOP SCH (03:41)
[2017-09-06] MEDS: RESP: ALBUTEROL 2.5 MG/IPRATROPIUM 0.5 MG NEB (SCH) INH ×4 (04:30→22:17)
[2017-09-06 06:09] LABS: AUTOMATED NEUTROPHIL # 13.2 TH/MM3 (1.8-7.7); BASOPHIL % 0.1 % (0.0-2.0); EOSINOPHIL # 0.1 TH/MM3 (0-0.4); EOSINOPHIL % 0.8 % (0.0-4.0); HEMATOCRIT 24.2 % (35.0-46.0); HEMOGLOBIN 7.9 GM/DL (11.6-15.3); LYMPH % 10.2 % (9.0-44.0); LYMPHOCYTE # 1.6 TH/MM3 (1.0-4.8); MEAN CELL VOLUME 89.5 FL (80.0-100.0); MEAN CORPUSCULAR HEMOGLOBIN 29.3 PG (27.0-34.0); MEAN CORPUSCULAR HGB CONC 32.7 % (32.0-36.0); MONO % 3.5 % (0.0-8.0); MONOCYTE # 0.5 TH/MM3 (0-0.9); NEUT % 85.4 % (16.0-70.0); PLATELET COUNT 290 TH/MM3 (150-450); RED CELL DISTRIBUTION WIDTH 15.5 % (11.6-17.2); WHITE BLOOD COUNT 15.5 TH/MM3 (4.0-11.0)
[2017-09-06] MEDS: LEVOTHYROXINE SODIUM 88 MCG TAB PO SCH (06:23)
[2017-09-06] MEDS: ENOXAPARIN SODIUM 80 MG/0.8 ML SYRINGE SQ SCH ×2 (06:23→17:16)
[2017-09-06 06:37] LABS: CREATININE 1.51 MG/DL (0.50-1.00); MAGNESIUM 1.9 MG/DL (1.5-2.5); PHOSPHORUS 3.5 MG/DL (2.5-4.9)
[2017-09-06] MEDS ORDERED: PHARMACY ORDERED LAB ONE ×2 (07:45→13:45)
[2017-09-06] MEDS: CHLORHEXIDINE 0.12% (ORAL KIT) 15 ML CUP MT SCH ×2 (08:36→20:40)
[2017-09-06] MEDS: SODIUM CHLORIDE 0.9% FLUSH 10 ML FLUSH IV FLUSH SCH ×2 (08:37→20:41)
[2017-09-06] MEDS: GABAPENTIN 100 MG CAP PO SCH ×3 (08:37→17:15)
[2017-09-06] MEDS: FERROUS SULFATE 300 MG /5ML UDC OG-TUBE SCH ×2 (08:37→20:41)
[2017-09-06] MEDS: FAMOTIDINE 20 MG TAB PO SCH ×2 (08:37→20:34)
[2017-09-06] MEDS: predniSONE 5 MG TAB PO SCH (08:37)
[2017-09-06] MEDS: DOCUSATE SODIUM 50 MG/SENNA 8.6 MG TAB PO SCH ×2 (08:37→20:34)
[2017-09-06] MEDS: AZITHROMYCIN INJ 500 MG in SODIUM CHLOR 0.9% 250 ML INJ 250 ML IV SCH (11:40)
--- NOTE | 2017-09-06 12:57 | HHI.CCPN ---
Subjective Remarks/Hospital Course Patient history is limited due to BiPAP mask in place. History is obtained from patient's daughter and review of records from [facility]. 76-year-old female with past medical history of hypertension, COPD, emphysema,, Sjogren's syndrome, rheumatoid arthritis (on plaquenil), CKD stage IV (followed by Dr. Jonas with plan for eventual home PD), hypothyroidism, chronic anemia with iron deficiency, GERD who presented to [facility] emergency department via [facility] from [facility]. She has recent hospitalization at [facility] on 07/24. She was discharged to [facility] on 08/05. Her daughter states that during this hospitalization she was treated for bilateral pneumonia and had tested positive for rhinovirus. Reportedly echo during that hospitalization showed an EF of 50%. Yesterday she left [facility] for a 4-hour home visit. Her daughter states she was fatigued and laid in bed. She was SOB. She has had a cough productive of clear sputum for 3 days. She denies any chest pain or hemoptysis. She has experienced bilateral lower extremity swelling. Her daughter reports that she had a fever at the detention however what is documented on transfer paperwork is temp of 97.4. Patient denies any issues with this for nausea. She has vomited every morning for the last week a few minutes after swallowing her morning medications. Upon arrival she is afebrile with night temp at 98.8. She is in A. fib with RVR with rate in the 110s. Blood white blood cell count is 24.6, creatinine of 1.49 , troponin 0 0.21, BNP 1530. She has received Lasix 60 mg IV and has been placed on BiPAP 10/5 and 100% for increased work of breathing. Blood cultures have been obtained and she has been administered vancomycin, Zosyn, DuoNeb in the ED. She states she feels improved compared with arrival. She is agreeable to intubation if needed. 09/04 Diuresed net negative 1650. Was off Bipap to 6 L NC for couple of hours and then placed back on Bipap for desaturation. FIO2 weaned down to 55 from 100 % yesterday. Afebrile. No CP. Cough nonproductive. HAve not yet received records from [facility]. Will request them again. 09/05 Net negative 1760. Did not sleep well last night, worsening hypoxia. Persistent bilateral rales and infiltrates on CXR. She is fatigued and says she can't take it anymore. Initially refusing intubation and indicating she was wanting comfort measures only, however upon discussion with patient and her daughter, Denita, she was agreeable to intubation. Records received from [facility]. She was admitted 07/25/17 with myalgia, headache, cough, weakness, vomiting, diarrhea, visual hallucinations. She was treated with Zosyn and Zithromax and then Rocephin and doxycycline. Sputum culture 07/25 and blood cultures from 07/24 and 07/26 were negative. Urine Legionella and pneumococcal antigens were negative. Viral respiratory PCR was positive for rhino virus 07/27/17. Influenza was negative. CT chest 07/25 showed right upper lobe pneumonia. Echo 07/27/17 showed LVH with ejection fraction 60-65%, diastolic dysfunction, mild to moderate mitral regurgitation. Subjective: 09/06 CT scan performed yesterday demonstrates bilateral groundglass opacities. Bronchial washing gram stain and fungal stains are negative. Blood cultures negative. Objective Vital Signs Date Time Temp Pulse Resp B/P (MAP) Pulse Ox O2 Delivery O2 Flow Rate FiO2 09/06/17 11:21 60 09/06/17 11:21 99 Mechanical Ventilator 09/06/17 11:21 98.0 74 24 101/55 (70) 09/04/17 21:03 14.00 Intake and Output 09/06/17 09/06/17 09/07/17 08:00 16:00 00:00 Intake Total 857.4 ml Output Total 625 ml Balance 232.4 ml Result Diagram: 09/06/17 0439 09/06/17 0439 Other Results Microbiology Date/Time Source Procedure Growth Status 09/03/17 21:25 Nasal Aspirate Influenza Types A,B Antigen (LAKHWINDER) - Final NEGATIVE FOR FLU A AND B ANTIGEN.... Complete 09/03/17 19:25 Urine Catheterized Urine Legionella Antigen - Final PRESUMPTIVE NEGATIVE FOR LEGIONELLA P... Complete 09/03/17 19:25 Urine Catheterized Urine Streptococcus pneumoniae Antigen (M - Final PRESUMPTIVE NEGATIVE FOR STREPTOCOCCU... Complete Objective Remarks GENERAL: Elderly overweight female who is orotracheally intubated. SKIN: Warm and dry, adequately perfused. HEAD: Atraumatic. Normocephalic. EYES: Pupils equal and round, 2 mm and reactive bilaterally.. No scleral icterus. No injection or drainage. ENT: Orotracheally intubated. No JVD CARDIOVASCULAR: Irregular, no mrg. RESPIRATORY: Bilateral anterior and posterior rales. GASTROINTESTINAL: Abdomen soft, non-tender, nondistended. Bowel sounds present. : Hoffman catheter in place with light yellow urine output. MUSCULOSKELETAL: Extremities without clubbing, cyanosis. 1+ pitting bipedal edema. No palpable cords or erythema. NEUROLOGICAL: Opens eyes, pupils reactive, withdraws with all extremities on sedation. A/P Assessment and Plan NEURO: Peripheral neuropathy Depression Insomnia Continue Neurontin 100 mg's p.o. 3 times daily hold citalopram and flexeril. Propofol/fentanyl for sedation. Daily sedation vacation Target RASS -2 RESP: Acute hypoxemic respiratory failure ARDS, moderate severity Recent pneumonia with multifocal opacities on imaging at [facility] in July, rhinovirus positive. Initially she wished to hold off on intubation when admitted. Failed Bipap and agreed to intubation 09/05. CT chest showed bilateral ground glass opacities, bilateral pleural effusions Infiltrates did not change with diuresis. Repeat Echo still pending, calling Echo dept. Infection seems less likely. Likely inflammatory in nature such as AIP, could be secondary to known connective tissue disease. Will d/c prednisone 5 mg and start trial of Solumedrol 80 mg IV q8 hours. Discussed with ID. Requested PFTs from Dr. Mcmullen's office performed Monday. DuoNeb every 6 hours. Albuterol every 2 hours as needed. F/u CXR in am. CV: Hypertension Paroxysmal atrial fibrillation Hyperlipidemia Diastolic heart failure Lactic acid normal Diuresed with lasix, net negative >3.5 L since admission. Echo at [facility] -LVH with ejection fraction 60-65%, diastolic dysfunction, mild left atrial dilation, Mild/moderate MR Repeat echo pending EKG in the emergency department has significant artifact. It appears consistent with A. fib. No remarkable ST changes. Serial troponins flat at 0.2 Aspirin 325 mg daily . GI: GERD Hiatal hernia Famotidine as per below OGT, Jevity 1.5 with goal rate 55 mL/h per nutrition recommendations Bowel regimen FEN/RENAL: CKD stage IV Acute hypokalemia Hoffman in place . Previously had Purewick catheter prior to sedation. ICU electrolyte placement protocol. Followed by Dr. Jonas as outpatient. Classes for home peritoneal dialysis were tentatively scheduled for January. ID: Leukocytosis, blood culture 09/03 - negative. Influenza screen negative. Unable to produce sputum. [facility] - secretions appear clear. Gram stain, fungal stain and acid fast stain negative. Bacterial Continue abx per ID: vancomycin with pharmacy dosing, Zosyn, azithromycin 09/03 # 4. urine Legionella and pneumococcal antigen negative At [facility], + for Rhinovirus 07/24 . IMMUNO: Sjogren's syndrome Rheumatoid arthritis Plaquenil was held on admission due to concern for sepsis, could be resumed if all cultures negative but will hold off for now, on solumedrol. Home dose is 400 mg p.o. daily Evoxac 30 mill grams p.o. 3 times daily for sjogrens is not on formulary. HEME: Chronic anemia Iron deficiency Bilateral posterior tibial venous thrombosis. Obtained bilateral lower extremity ultrasound - results indicate bilateral below knee DVT, bilateral posterial tibial veins. She is symptomatic and also at high risk of extension due to immobility. I am also not able to r/o PE at this time because not candidate for VQ with bilateral infiltrates and not candidate for CT PA due to CKD IV. Therefore, favor treatment in this situation. Discussed with patient and her daughter. On lovenox 1mg/kg q12. Continue ferrous sulfate 325 mg p.o. twice daily. Received iron infusion on . ENDO: Hypothyroidism TSH normal, continue Synthroid 88 mcg p.o. daily Had been on prednisone 5 mg dialy since recent hospitalization at [facility]...now on solumedrol. Monitor bedside glucose while on steroids and administer low-dose insulin sliding scale as indicated PROPH: SCDs/ lovenox for DVT treatment. Monitor for evidence of bleeding. Famotidine for stress ulcer prophylaxis ACCESS: Peripheral IV providing adequate access at this time Discussed with patient in the evening of 09/03. She was capacitated for medical decision-making. She states she is agreeable to intubation if needed for respiratory failure but wishes to be DNR in the setting of pulseless arrest. I have ordered alternate code intubation only. 09/05 Lengthy discussion with patient who was initially resistant to intubation and making comments regarding consideration of comfort measures. Ultimately she was agreeable to intubation. She states her daughter is her healthcare surrogate. She indicated she would not want prolonged intubation or trach Level 3 f/u. Pamela Johnson MD Sep 06, 2017 12:57
[2017-09-06] MEDS: VANCOMYCIN 1,000 MG/NS 250 ML IV SCH ×2 (13:26)
--- NOTE | 2017-09-06 13:27 | HHI.IDPN ---
Subjective Subjective Remarks Patient is a 76-year-old female, came from a rehab facility, brought into the hospital for evaluation of shortness of breath. Patient's history significant for a recent hospitalization at [facility] from July 24 - August 06. Workup at that time showed evidence of bilateral pneumonia. She also had an abnormal urinalysis. Sputum culture grew normal respiratory tyler. Her viral testing was positive for rhino enterovirus. She was seen by air support operations operator as well as infectious disease during that hospitalization. According to the son-in-law patient was on nasal O2 during the whole hospital stay, and from there she was discharged to a rehab facility on nasal O2. She was on oral antibiotics in the rehab facility. Patient reportedly was doing really well the first week after discharge, but after that she started developing fatigue. She has had 3 chest x-ray done in the nursing facility. The chest x-ray on August 07 showed bilateral upper lobe infiltrates. Chest x-ray August 17 showed some improvement in the right upper lobe infiltrate, no mention of the left upper lobe infiltrate. Chest x-ray August 23 is now showing by basilar consolidation. There was no mention of any fever. Patient apparently has had problem with nausea and vomiting in the morning usually after she takes her medications. However throughout the day she tolerates her diet. She has had some cough but has not really been worsening. Patient has not complained of any chest pain. One day prior to her admission, her family took her out for about 4 hours. She was very weak, and they did not really notice any significant change in her respiratory status. According to the son-in-law, the plan was for the patient to be discharged to home on August 04. On the day of admission patient became short of breath, and she was brought into the hospital for further evaluation and treatment. She ended up getting intubated. Her chest x-ray has shown bilateral pulmonary infiltrates. Her WBC is elevated at more than 20,000. Urinalysis is unremarkable. BNP is 400+. Previous echo at [facility] showed good ejection fraction of greater than 50%. Patient is currently on Zithromax, Zosyn, and vancomycin. She is afebrile. Urine for Legionella and pneumococcal antigen are negative. Influenza antigen is negative. Infectious disease consultation has been requested to evaluate the patient with persistent bilateral pulmonary infiltrates. Notes reviewed D/W RN Low grade temps yesterday, ok today BP ok Not on pressors Sedated on the vent, FiO2 0.4 Not much from ET Bronch G/S rare WBC CT chest noted Antibiotics Zosyn Zithromax Vancomycin Current Medications Medications (Trade) Dose Ordered Sig/Tony Route Start Time Stop Time Status Last Admin Potassium Chloride 100 ml @ 50 mls/hr Q2H PRN IV 09/03/17 09:45 Potassium Chloride 100 ml @ 50 mls/hr Q2H PRN IV 09/03/17 09:45 (K-Lyte Cl Eff) 50 meq UNSCH PRN PO 09/03/17 09:45 09/05/17 06:27 Potassium Chloride 100 ml @ 25 mls/hr UNSCH PRN IV 09/03/17 09:45 Potassium Chloride 100 ml @ 50 mls/hr Q2H PRN IV 09/03/17 09:45 09/05/17 09:56 Magnesium Sulfate 4 gm/Sodium Chloride 100 ml @ 50 mls/hr UNSCH PRN IV 09/03/17 09:45 (Mag-Ox) 800 mg UNSCH PRN PO 09/03/17 09:45 Magnesium Sulfate 2 gm/Sodium Chloride 100 ml @ 50 mls/hr UNSCH PRN IV 09/03/17 09:45 (K-Phos) 2,000 mg Q4H PRN PO 09/03/17 09:45 Sodium Phosphate 30 mmol/Sodium Chloride 250 ml @ 42 mls/hr UNSCH PRN IV 09/03/17 09:45 (K-Phos) 2,000 mg UNSCH PRN PO/TUBE 09/03/17 09:45 Potassium Phosphate 30 mmol/ Sodium Chloride 260 ml @ 42 mls/hr UNSCH PRN IV 09/03/17 09:45 Pharmacy Profile Note 0 ml @ 0 mls/hr UNSCH OTHER 09/03/17 10:30 Azithromycin 500 mg/Sodium Chloride 250 ml @ 250 mls/hr Q24H IV 09/03/17 12:00 09/06/17 11:40 Piperacillin Sod/ Tazobactam Sod 50 ml @ 100 mls/hr Q6H IV 09/03/17 13:00 09/06/17 06:25 (NS Flush) 2 ml UNSCH PRN IV FLUSH 09/03/17 10:45 (NS Flush) 2 ml BID IV FLUSH 09/03/17 21:00 6/6/18 08:37 (Tylenol) 650 mg Q6H PRN PO 09/03/17 10:45 (Duoneb Neb) 1 ampule Q6HR NEB INH 09/03/17 16:00 09/06/17 09:09 (Albuterol Neb) 2.5 mg Q2HR NEB PRN INH 09/03/17 10:45 ([facility] Nursing Information) 1 Q361D XX 09/03/17 10:45 09/03/17 10:45 (Chlorhexidine 2% Cloth) 3 pack Taper DAILY@04 TOP 09/04/17 04:00 08/31/18 03:59 09/06/17 03:41 (Chlorhexidine 2% Cloth) 3 pack UNSCH PRN TOP 09/03/17 10:45 (Nancy-Colace) 1 tab BID PO 09/03/17 21:00 09/05/17 20:31 (Milk Of Magnesia Liq) 30 ml Q12H PRN PO 09/03/17 10:45 (Senokot) 17.2 mg Q12H PRN PO 09/03/17 10:45 (Dulcolax Supp) 10 mg DAILY PRN RECTAL 09/03/17 10:45 (Lactulose Liq) 30 ml DAILY PRN PO 09/03/17 10:45 (Lovenox Inj) 70 mg Q12H SQ 09/03/17 18:00 09/06/17 06:23 (Pepcid) 10 mg BID PO 09/04/17 21:00 09/06/17 08:37 (Neurontin) 100 mg TID PO 09/05/17 09:00 09/06/17 08:37 (CeleXA) 40 mg DAILY PO 09/05/17 09:00 Future Hold 09/05/17 09:02 (Flexeril) 10 mg Q8H PRN PO 09/04/17 19:45 (Synthroid) 88 mcg DAILY@0600 PO 09/05/17 06:00 09/06/17 06:23 (Zofran Odt) 4 mg Q6H PRN PO 09/05/17 08:45 09/05/17 09:02 Propofol 100 ml @ 2.25 mls/hr TITRATE PRN IV 09/05/17 09:45 09/06/17 08:36 Fentanyl Citrate 250 ml @ 5 mls/hr TITRATE PRN IV 09/05/17 09:45 09/05/17 12:00 (Peridex 0.12% Liq) 15 ml BID@08,20 MT 09/05/17 20:00 09/06/17 08:36 (Versed Inj) 2 mg Q15M PRN IV PUSH 09/05/17 11:30 Vancomycin HCl 1000 mg/Sodium Chloride 250 ml @ 250 mls/hr Q24H IV 09/05/17 14:00 09/05/17 17:29 ([facility] Ordered Lab Info) SPECIFIC LAB TO BE DRAWN:VANCO TROUGH DATE... ONCE ONCE .XX 09/07/17 13:45 09/07/17 13:46 (Ferrous Sulfate Liq) 300 mg BID OG-TUBE 09/06/17 09:00 09/06/17 08:37 (SoluMEDROL INJ) 80 mg Q8H IV 09/06/17 14:00 Lines Line no evid of infection Past Medical History COPD/emphysema, she was followed by Dr. Mcmullen while at [facility] CKD stage IV. her daughter states this was secondary to long-term NSAID use. Her estate planning attorney is Dr. Jonas Chronic atrial fibrillation; draw furnace tender is Dr. Whitley Hyperlipidemia Sjogren's syndrome, rheumatoid arthritis, in tube conversion technician is Dr. Mays Hypothyroidism Chronic anemia she has not had blood transfusion but had an IV iron infusion on 08/28/17 at [facility] Vitamin D deficiency Insomnia Osteoarthritis GERD Past Surgical History Hysterectomy Varicose vein stripping Colonoscopy 6 years ago was negative She had an EGD in fall 2016 for workup for anemia which was reportedly negative Allergies: Coded Allergies: codeine (Verified Allergy, Unknown, Hallucinations, 09/03/17) Objective . Vital Signs Date Time Temp Pulse Resp B/P (MAP) Pulse Ox O2 Delivery O2 Flow Rate FiO2 09/06/17 11:21 60 09/06/17 11:21 99 Mechanical Ventilator 40 09/06/17 11:21 98.0 74 24 101/55 (70) 98 09/06/17 11:00 76 09/06/17 10:47 99 40 09/06/17 07:50 99 40 09/06/17 07:48 60 09/06/17 07:48 98 Mechanical Ventilator 40 09/06/17 07:44 98.0 74 24 98/51 (67) 98 09/06/17 07:00 75 09/06/17 04:30 99 40 09/06/17 03:20 100 Mechanical Ventilator 60 09/06/17 03:20 60 09/06/17 03:20 97.6 68 24 107/67 (80) 100 09/06/17 03:00 60 09/06/17 00:44 100 50 09/05/17 23:07 60 09/05/17 23:07 97.7 77 24 109/65 (80) 100 09/05/17 23:07 100 Mechanical Ventilator 60 09/05/17 23:00 79 09/05/17 20:24 99 60 09/05/17 19:20 99 Mechanical Ventilator 60 09/05/17 19:20 97.7 69 24 112/63 (79) 99 09/05/17 19:20 60 09/05/17 19:00 71 09/05/17 16:01 98 60 09/05/17 15:00 60 09/05/17 15:00 91 09/05/17 15:00 97 Mechanical Ventilator 60 09/05/17 15:00 98.6 86 25 112/69 (83) 97 . Laboratory Tests Test 09/05/17 04:14 09/05/17 13:17 09/06/17 04:39 White Blood Count 24.2 TH/MM3 15.5 TH/MM3 Red Blood Count 2.77 MIL/MM3 2.70 MIL/MM3 Hemoglobin 8.1 GM/DL 7.9 GM/DL Hematocrit 24.6 % 24.2 % Mean Corpuscular Volume 88.8 FL 89.5 FL Mean Corpuscular Hemoglobin 29.2 PG 29.3 PG Mean Corpuscular Hemoglobin Concent 32.9 % 32.7 % Red Cell Distribution Width 15.5 % 15.5 % Platelet Count 353 TH/MM3 290 TH/MM3 Mean Platelet Volume 7.7 FL 8.0 FL Neutrophils (%) (Auto) 90.1 % 85.4 % Lymphocytes (%) (Auto) 6.0 % 10.2 % Monocytes (%) (Auto) 3.7 % 3.5 % Eosinophils (%) (Auto) 0.1 % 0.8 % Basophils (%) (Auto) 0.1 % 0.1 % Neutrophils # (Auto) 21.8 TH/MM3 13.2 TH/MM3 Lymphocytes # (Auto) 1.4 TH/MM3 1.6 TH/MM3 Monocytes # (Auto) 0.9 TH/MM3 0.5 TH/MM3 Eosinophils # (Auto) 0.0 TH/MM3 0.1 TH/MM3 Basophils # (Auto) 0.0 TH/MM3 0.0 TH/MM3 CBC Comment DIFF FINAL DIFF FINAL Differential Comment Erythrocyte Sedimentation Rate GREATER THAN 140 mm/hr Laboratory Tests Test 09/04/17 17:02 09/05/17 04:14 09/05/17 13:17 09/06/17 04:39 Potassium Level 3.7 MEQ/L 3.4 MEQ/L 3.8 MEQ/L Blood Urea Nitrogen 23 MG/DL 23 MG/DL Creatinine 1.52 MG/DL 1.51 MG/DL Random Glucose 66 MG/DL 93 MG/DL Calcium Level 8.4 MG/DL 8.0 MG/DL Sodium Level 140 MEQ/L 139 MEQ/L Chloride Level 103 MEQ/L 102 MEQ/L Carbon Dioxide Level 25.7 MEQ/L 24.0 MEQ/L Anion Gap 11 MEQ/L 13 MEQ/L Estimat Glomerular Filtration Rate 33 ML/MIN 33 ML/MIN B-Type Natriuretic Peptide 401 PG/ML Lactate Dehydrogenase 604 U/L C-Reactive Protein 14.00 MG/DL Phosphorus Level 3.5 MG/DL Magnesium Level 1.9 MG/DL Microbiology Date/Time Source Procedure Growth Status 09/05/17 10:50 Bronchial Washings Right Mid Lobe Fungal Smear - Final NO FUNGAL ELEMENTS SEEN. Resulted 09/05/17 10:50 Bronchial Washings Right Mid Lobe Fungal Culture Pending Resulted 09/05/17 10:50 Bronchial Washings Right Mid Lobe Acid Fast Stain - Final NO ACID FAST BACILLI SEEN Resulted 09/05/17 10:50 Bronchial Washings Right Mid Lobe Mycobacterial Culture Pending Resulted 09/05/17 10:50 Bronchial Washings Right Mid Lobe Gram Stain - Final Resulted 09/05/17 10:50 Bronchial Washings Right Mid Lobe Bronchial Culture Pending Resulted 09/03/17 21:25 Nasal Aspirate Influenza Types A,B Antigen (LAKHWINDER) - Final NEGATIVE FOR FLU A AND B ANTIGEN.... Complete 09/03/17 19:25 Urine Catheterized Urine Legionella Antigen - Final PRESUMPTIVE NEGATIVE FOR LEGIONELLA P... Complete 09/03/17 19:25 Urine Catheterized Urine Streptococcus pneumoniae Antigen (M - Final PRESUMPTIVE NEGATIVE FOR STREPTOCOCCU... Complete Imaging Last Impressions Chest X-Ray 09/05/17 Signed Impressions: CONCLUSION: 1. Endotracheal tube is in appropriate position with tip measuring approximate ly 4.6 cm from the ricky. 2. Patchy bilateral airspace consolidation is stable. Chest CT 09/05/17 Signed Impressions: CONCLUSION: 1. Large bilateral pleural effusions, patchy bilateral consolidation and adeno jhoan. 2. Mild aneurysmal dilatation of the aorta. 3. Atherosclerosis. Renal Ultrasound 09/03/17 Signed Impressions: CONCLUSION: 1. No obstructive uropathy or other acute abnormality demonstrated. 2. Small, benign cyst of the right upper pole. Lower Extremity Ultrasound 09/03/17 Signed Impressions: CONCLUSION: Bilateral below the knee lower extremity DVT as above. Physical Exam GENERAL: sedated on the vent, not in respiratory distress. SKIN: Cool and dry. No generalized rash, no ecchymoses and no evidence of embolic lesions. HEAD: Atraumatic. Normocephalic. No temporal wasting, or tenderness. EYES: [place] conjunctiva. No petechia or hemorrhage. Pupils equal, round and reactive to light. No scleral icterus. No injection or drainage. EARS, NOSE AND THROAT: Nose without bleeding or purulent nasal discharge. She is orally intubated. NECK: Trachea midline. Supple and not tender, no meningeal signs CARDIOVASCULAR: Regular rate and rhythm. No murmurs, rubs or gallops heard RESPIRATORY: Bilateral rales. No wheezing or rhonchi. Equal breath sounds bilaterally. ABDOMEN: Soft, nondistended, no reaction to deep palpation.. Bowel sounds present and normoactive. No organomegaly. EXTREMITIES: No clubbing, cyanosis, or edema. No joint effusion noted. NEUROLOGICAL: Sedated. No Babinski or ankle clonus. PSYCHIATRIC: Unable to assess. LINE: No evidence of infection Assessment & Plan Remarks IMPRESSION Bilateral pulmonary infiltrates, etiology? - has been treated for PNA at [facility] - ?new PNA, aspiration, has had problem with vomiting - ?other inflammatory etiology Respiratory failure, with zoran infiltrates - need to R/O PE, has zoran LE DVT Zoran LE DVT Known RA, Sjogren syndrome CKD RECOMMENDATION Follow viral resp panel Follow C/S, and descalate once available Continue empiric Abx: Zosyn, Zithromax Continue Vanco for MRSA coverage Ok with ID to give trial high dose steroids for inflammatory pneumonitis (D/W Dr Johnson [facility]) Follow CBC Monitor temps Monitor progress D/W Kady Pollard MD Sep 06, 2017 13:27
[2017-09-06] MEDS: methylPREDNISolone SOD SUCC 125 MG/2 ML VIAL IV SCH ×2 (13:59→22:07)
[2017-09-06] MEDS: INSULIN ASPART SUPPLEMENTAL SCALE SQ SCH ×2 (14:00→20:37)
[2017-09-06] MEDS ORDERED: GLUCAGON 1 MG/ML VIAL OTHER PRN (14:00)
[2017-09-06] MEDS ORDERED: DEXTROSE 50% IN WATER 50 ML VIAL(D50) IV PUSH PRN (14:00)
--- NOTE | 2017-09-06 16:54 | HHI.PR ---
Subjective Remarks sedated on the ventilator Objective Vital Signs Date Time Temp Pulse Resp B/P (MAP) Pulse Ox O2 Delivery O2 Flow Rate FiO2 09/06/17 15:25 99 Mechanical Ventilator 40 09/06/17 15:24 98.3 63 24 108/63 (78) 98 09/06/17 15:24 60 6 15:00 68 09/06/17 14:33 98 40 09/06/17 11:21 60 09/06/17 11:21 99 Mechanical Ventilator 40 09/06/17 11:21 98.0 74 24 101/55 (70) 98 09/06/17 11:00 76 09/06/17 10:47 99 40 09/06/17 07:50 99 40 09/06/17 07:48 60 09/06/17 07:48 98 Mechanical Ventilator 40 09/06/17 07:44 98.0 74 24 98/51 (67) 98 09/06/17 07:00 75 09/06/17 04:30 99 40 09/06/17 03:20 100 Mechanical Ventilator 60 09/06/17 03:20 60 09/06/17 03:20 97.6 68 24 107/67 (80) 100 09/06/17 03:00 60 09/06/17 00:44 100 50 09/05/17 23:07 60 09/05/17 23:07 97.7 77 24 109/65 (80) 100 09/05/17 23:07 100 Mechanical Ventilator 60 09/05/17 23:00 79 09/05/17 20:24 99 60 09/05/17 19:20 99 Mechanical Ventilator 60 09/05/17 19:20 97.7 69 24 112/63 (79) 99 18 19:20 60 09/05/17 19:00 71 I/O 6/18 6/18 6//18 6//18 6//18 6 07:00 15:00 23:00 07:00 15:00 23:00 Intake Total 290 ml 250 ml 840.9 ml 857.4 ml 550 ml Output Total 1500 ml 1700 ml 625 ml Balance -1210 ml 250 ml -859.1 ml 232.4 ml 550 ml Intake Oral 240 ml 0 ml IV Total 50 ml 250 ml 830.9 ml 237.4 ml 550 ml Tube Feeding 10 ml 250 ml Tube Irrigant 370 ml Output Urine Total 1500 ml 1700 ml 625 ml Gastric Drainage Total 0 ml # Bowel Movements 1 1 0 Result Diagram: 09/06/1743809/06/17438 Objective Remarks GENERAL: SKIN: Warm and dry. HEAD: Atraumatic. Normocephalic. EYES: Pupils equal and round. No scleral icterus. No injection or drainage. ENT: No nasal bleeding or discharge. Mucous membranes pink and moist. NECK: Trachea midline. No JVD. CARDIOVASCULAR: Regular rate and rhythm. RESPIRATORY: No accessory muscle use. Clear to auscultation. Breath sounds equal bilaterally. GASTROINTESTINAL: Abdomen soft, non-tender, nondistended. Hepatic and splenic margins not palpable. MUSCULOSKELETAL: Extremities without clubbing, cyanosis, or edema. No obvious deformities. NEUROLOGICAL: Awake and alert. No obvious cranial nerve deficits. Motor grossly within normal limits. Five out of 5 muscle strength in the arms and legs. Normal speech. PSYCHIATRIC: Appropriate mood and affect; insight and judgment normal. Assessment and Plan Assessment and Plan ass respiratory failure pneumonia [employer] PLAN VENT SUPPORT ANTIBIOTIC THERAPY PER ID WEAN TOLERATED Eufemia Fall MD Sep 06, 2017 16:54
--- NOTE | 2017-09-06 17:50 | ECHRPT ---
Indication: sob CONCLUSIONS The left ventricular systolic function is normal with an estimated ejection fraction in the range of 55-60%. Wall thickness is measured at the upper limits of normal. [id number] mitral valve regurgitation. Trace aortic valve regurgitation. There is trace tricuspid valve regurgitation. The estimated pulmonary arterial pressure is 30 mmHg. BP: / HR: Rhythm: MEASUREMENTS (Male / Female) Normal Values Technical Quality: 2D ECHO LV Diastolic Diameter PLAX 3.8 cm 4.2 - 5.9 / 3.9 - 5.3 cm LV Systolic Diameter PLAX 2.9 cm IVS Diastolic Thickness 1.2 cm 0.6 - 1.0 / 0.6 - 0.9 cm LVPW Diastolic Thickness 1.2 cm 0.6 - 1.0 / 0.6 - 0.9 cm LV Relative Wall Thickness 0.6 RV Internal Dim ED PLAX 2.6 cm M-MODE Aortic Root Diameter MM 2.5 cm LA Systolic Diameter MM 3.0 cm LA Ao Ratio MM 1.2 AV Cusp Separation MM 1.0 cm DOPPLER TR Peak Velocity 226.0 cm/s TR Peak Gradient 20.4 mmHg Right Atrial Pressure 10.0 mmHg Pulmonary Artery Systolic Pressu 30.4 mmHg Right Ventricular Systolic Press 30.4 mmHg FINDINGS LEFT VENTRICLE The left ventricular systolic function is normal with an estimated ejection fraction in the range of 55-60%. Wall thickness is measured at the upper limits of normal. Normal left ventricular size. RIGHT VENTRICLE Normal right ventricular size and systolic function. LEFT ATRIUM The left atrial size is normal. RIGHT ATRIUM The right atrial size is normal. ATRIAL SEPTUM Normal atrial septal thickness without atrial level shunting by limited color doppler interrogation. AORTA The aortic root and proximal ascending aorta are not well visualized. MITRAL VALVE [id number] mitral valve regurgitation. AORTIC VALVE Trileaflet aortic valve. Trace aortic valve regurgitation. TRICUSPID VALVE There is trace tricuspid valve regurgitation. The estimated pulmonary arterial pressure is 30.4 mmHg. PULMONARY VALVE No pulmonary valve regurgitation or stenosis. VESSELS The inferior vena cava is dilated. PERICARDIUM There is no pericardial effusion. Sandy Weber MD, FACC (Electronically Signed) Final Date:06 September 2017 17:49
[2017-09-06] MEDS ORDERED: FUROSEMIDE 40 MG/4 ML VIAL IV PUSH ONE (18:15)
[2017-09-07] VITALS (16 sets, daily range): BP systolic 107–127; BP diastolic 56–83; PULSE 50–95; RESP 20–24; TEMP 97.9–98.8; O2SAT 95–100
[2017-09-07] MEDS: PIPERACIL-TAZO 3.375 GM PREMIX 50 ML IV SCH ×3 (01:00→13:04)
[2017-09-07] MEDS: INSULIN ASPART SUPPLEMENTAL SCALE SQ SCH ×4 (02:16→20:00)
[2017-09-07] MEDS: RESP: ALBUTEROL 2.5 MG/IPRATROPIUM 0.5 MG NEB (SCH) INH ×3 (03:38→16:00)
[2017-09-07] MEDS: CHLORHEXIDINE GLUCONATE 2 % 1 PACK (2 CLOTHS) TOP SCH (03:54)
[2017-09-07 04:15] LABS: AUTOMATED NEUTROPHIL # 9.7 TH/MM3 (1.8-7.7); BASOPHIL % 0.2 % (0.0-2.0); HEMATOCRIT 22.9 % (35.0-46.0); HEMOGLOBIN 7.6 GM/DL (11.6-15.3); LYMPH % 6.1 % (9.0-44.0); LYMPHOCYTE # 0.6 TH/MM3 (1.0-4.8); MEAN CELL VOLUME 87.3 FL (80.0-100.0); MEAN CORPUSCULAR HEMOGLOBIN 29.2 PG (27.0-34.0); MEAN CORPUSCULAR HGB CONC 33.4 % (32.0-36.0); MONO % 1.3 % (0.0-8.0); MONOCYTE # 0.1 TH/MM3 (0-0.9); NEUT % 92.4 % (16.0-70.0); PLATELET COUNT 289 TH/MM3 (150-450); RED BLOOD COUNT 2.62 MIL/MM3 (4.00-5.30); RED CELL DISTRIBUTION WIDTH 15.6 % (11.6-17.2); WHITE BLOOD COUNT 10.5 TH/MM3 (4.0-11.0)
[2017-09-07 04:41] LABS: ALBUMIN 1.7 GM/DL (3.4-5.0); ALKALINE PHOSPHATASE 94 U/L (45-117); ALT (GPT) 32 U/L (10-53); AST (GOT) 42 U/L (15-37); BICARBONATE 24.8 MEQ/L (21.0-32.0); BLOOD UREA NITROGEN 28 MG/DL (7-18); CALCIUM 7.8 MG/DL (8.5-10.1); CHLORIDE 102 MEQ/L (98-107); CREATININE 1.63 MG/DL (0.50-1.00); GLOMERULAR FILTRATION RATE 31 ML/MIN (>89); GLUCOSE,RANDOM 232 MG/DL (74-106); MAGNESIUM 1.9 MG/DL (1.5-2.5); PHOSPHORUS 3.9 MG/DL (2.5-4.9); SODIUM (NA) 139 MEQ/L (136-145); TOTAL BILIRUBIN ADULT 0.3 MG/DL (0.2-1.0); TOTAL PROTEIN 6.1 GM/DL (6.4-8.2)
--- NOTE | 2017-09-07 05:03 | RADRPT ---
EXAM DATE: 09/07/2017 4:57 AM EDT AGE/SEX: 76 years / Female INDICATIONS: Shortness of breath, possible pulmonary disease. CLINICAL DATA: This is the patient's subsequent encounter. Patient reports that signs and symptoms h ave been present for 1 week and indicates a pain score of Nonresponsive. MEDICAL/SURGICAL HISTORY: Chronic obstructive pulmonary disease. Hysterectomy. COMPARISON: [facility], CHEST SINGLE AP, 09/05/2017. . FINDINGS: Endotracheal tube in good position. NG enters stomach. Bilateral airspace disease has improved over t he last 2 days. Small effusions remain. No pneumothorax. CONCLUSION: Nasogastric tube and endotracheal tube in good position. Improved bilateral airspace disease. Electronically signed by: Juan Manuel Novak MD 09/07/2017 5:02 AM EDT
[2017-09-07] MEDS: LEVOTHYROXINE SODIUM 88 MCG TAB PO SCH (05:57)
[2017-09-07] MEDS: ENOXAPARIN SODIUM 80 MG/0.8 ML SYRINGE SQ SCH ×2 (05:57→17:34)
[2017-09-07] MEDS: methylPREDNISolone SOD SUCC 125 MG/2 ML VIAL IV SCH ×3 (05:57→21:43)
[2017-09-07] MEDS: PROPOFOL 1000 MG/100 ML INJ 100 ML IV PRN ×3 (06:22→21:43)
[2017-09-07] MEDS: CHLORHEXIDINE 0.12% (ORAL KIT) 15 ML CUP MT SCH ×2 (07:59→20:00)
[2017-09-07] MEDS: GABAPENTIN 100 MG CAP PO SCH ×3 (09:00→17:34)
[2017-09-07] MEDS: DOCUSATE SODIUM 50 MG/SENNA 8.6 MG TAB PO SCH ×2 (09:00→20:01)
[2017-09-07] MEDS: SODIUM CHLORIDE 0.9% FLUSH 10 ML FLUSH IV FLUSH SCH ×2 (09:00→20:02)
[2017-09-07] MEDS: FERROUS SULFATE 300 MG /5ML UDC OG-TUBE SCH ×2 (09:00→20:01)
[2017-09-07] MEDS: FAMOTIDINE 20 MG TAB PO SCH ×2 (09:00→20:01)
[2017-09-07] MEDS: fentaNYL DRIP 250 ML IV PRN (11:56)
[2017-09-07] MEDS: AZITHROMYCIN INJ 500 MG in SODIUM CHLOR 0.9% 250 ML INJ 250 ML IV SCH (12:05)
--- NOTE | 2017-09-07 12:18 | HHI.CCPN ---
Subjective Remarks/Hospital Course Patient history is limited due to BiPAP mask in place. History is obtained from patient's daughter and review of records from [facility]. 76-year-old female with past medical history of hypertension, COPD, emphysema,, Sjogren's syndrome, rheumatoid arthritis (on plaquenil), CKD stage IV (followed by Dr. Jonas with plan for eventual home PD), hypothyroidism, chronic anemia with iron deficiency, GERD who presented to [facility] emergency department via [facility] from [facility]. She has recent hospitalization at [facility] on 07/24. She was discharged to [facility] on 08/05. Her daughter states that during this hospitalization she was treated for bilateral pneumonia and had tested positive for rhinovirus. Reportedly echo during that hospitalization showed an EF of 50%. Yesterday she left [facility] for a 4-hour home visit. Her daughter states she was fatigued and laid in bed. She was SOB. She has had a cough productive of clear sputum for 3 days. She denies any chest pain or hemoptysis. She has experienced bilateral lower extremity swelling. Her daughter reports that she had a fever at the long term however what is documented on transfer paperwork is temp of 97.4. Patient denies any issues with this for nausea. She has vomited every morning for the last week a few minutes after swallowing her morning medications. Upon arrival she is afebrile with night temp at 98.8. She is in A. fib with RVR with rate in the 110s. Blood white blood cell count is 24.6, creatinine of 1.49 , troponin 0 0.21, BNP 1530. She has received Lasix 60 mg IV and has been placed on BiPAP 10/5 and 100% for increased work of breathing. Blood cultures have been obtained and she has been administered vancomycin, Zosyn, DuoNeb in the ED. She states she feels improved compared with arrival. She is agreeable to intubation if needed. 09/04 Diuresed net negative 1650. Was off Bipap to 6 L NC for couple of hours and then placed back on Bipap for desaturation. FIO2 weaned down to 55 from 100 % yesterday. Afebrile. No CP. Cough nonproductive. HAve not yet received records from [facility]. Will request them again. 09/05 Net negative 1760. Did not sleep well last night, worsening hypoxia. Persistent bilateral rales and infiltrates on CXR. She is fatigued and says she can't take it anymore. Initially refusing intubation and indicating she was wanting comfort measures only, however upon discussion with patient and her daughter, Denita, she was agreeable to intubation. Records received from [facility]. She was admitted 07/25/17 with myalgia, headache, cough, weakness, vomiting, diarrhea, visual hallucinations. She was treated with Zosyn and Zithromax and then Rocephin and doxycycline. Sputum culture 07/25 and blood cultures from 07/24 and 07/26 were negative. Urine Legionella and pneumococcal antigens were negative. Viral respiratory PCR was positive for rhino virus 07/27/17. Influenza was negative. CT chest 07/25 showed right upper lobe pneumonia. Echo 07/27/17 showed LVH with ejection fraction 60-65%, diastolic dysfunction, mild to moderate mitral regurgitation. 09/06 CT scan performed yesterday demonstrates bilateral groundglass opacities. Bronchial washing gram stain and fungal stains are negative. Blood cultures negative. 09/07: Remains sedated, orally intubated on mechanical ventilation. Dropped from +3 to +5. Respiratory rate decreased from 24 to 20. Will follow-up ABG. Objective Vital Signs Date Time Temp Pulse Resp B/P (MAP) Pulse Ox O2 Delivery O2 Flow Rate FiO2 09/07/17 11:05 53 09/07/17 11:04 97.9 24 126/63 (84) 100 09/07/17 11:04 Mechanical Ventilator 40 09/04/17 21:03 14.00 Intake and Output 09/07/17 09/07/17 09/08/17 08:00 16:00 00:00 Intake Total 544.9 ml 27.4 ml Output Total 1050 ml Balance -505.1 ml 27.4 ml Result Diagram: 09/07/17 0307 09/07/17 0307 Other Results Microbiology Date/Time Source Procedure Growth Status 09/05/17 10:50 Bronchial Washings Right Mid Lobe Gram Stain - Final Complete 09/05/17 10:50 Bronchial Washings Right Mid Lobe Bronchial Culture - Final NO GROWTH IN 48 HOURS. Complete Objective Remarks GENERAL: Elderly overweight female who is orotracheally intubated. SKIN: Warm and dry, adequately perfused. HEAD: Atraumatic. Normocephalic. EYES: Pupils equal and round, 2 mm and reactive bilaterally.. No scleral icterus. No injection or drainage. ENT: Orotracheally intubated. No JVD CARDIOVASCULAR: Irregular, no mrg. RESPIRATORY: Bilateral anterior and posterior rales. GASTROINTESTINAL: Abdomen soft, non-tender, nondistended. Bowel sounds present. : Hoffman catheter in place with light yellow urine output. MUSCULOSKELETAL: Extremities without clubbing, cyanosis. 1+ pitting bipedal edema. No palpable cords or erythema. NEUROLOGICAL: Opens eyes, pupils reactive, withdraws with all extremities on sedation. A/P Assessment and Plan NEURO: Peripheral neuropathy Depression Insomnia Continue Neurontin 100 mg's p.o. 3 times daily hold citalopram and flexeril. Propofol/fentanyl for sedation. Daily sedation vacation Target RASS -2 RESP: Acute hypoxemic respiratory failure ARDS, moderate severity Recent pneumonia with multifocal opacities on imaging at [facility] in July, rhinovirus positive. Initially she wished to hold off on intubation when admitted. Failed Bipap and agreed to intubation 09/05. CT chest showed bilateral ground glass opacities, bilateral pleural effusions Infiltrates did not change with diuresis. Follow-up repeat echo. Infection seems less likely. Likely inflammatory in nature such as AIP, could be secondary to known connective tissue disease. Will d/c prednisone 5 mg and start trial of Solumedrol 80 mg IV q8 hours. Discussed with ID. Requested PFTs from Dr. Mcmullen's office performed Monday. DuoNeb every 6 hours. Albuterol every 2 hours as needed. F/u CXR in am. CV: Hypertension Paroxysmal atrial fibrillation Hyperlipidemia Diastolic heart failure Lactic acid normal Diuresed with lasix, net negative >3.5 L since admission. Echo at [facility] with ejection fraction 60-65%, diastolic dysfunction, mild left atrial dilation, Mild/moderate MR Repeat echo with LVEF 55-60%, mild to moderate mitral regurgitation, PASP 30 mmHg EKG in the emergency department has significant artifact. It appears consistent with A. fib. No remarkable ST changes. Serial troponins flat at 0.2 Aspirin 325 mg daily . GI: GERD Hiatal hernia Famotidine as per below OGT, Jevity 1.5 with goal rate 55 mL/h per nutrition recommendations Bowel regimen FEN/RENAL: CKD stage IV Acute hypokalemia Hoffman in place . Previously had Purewick catheter prior to sedation. ICU electrolyte placement protocol. Followed by Dr. Jonas as outpatient. Classes for home peritoneal dialysis were tentatively scheduled for January. ID: Leukocytosis, blood culture 09/03 - negative. Influenza screen negative. Unable to produce sputum. Bronchial washings sent from [facility] 09/05 - secretions appear clear. Gram stain, fungal stain and acid fast stain negative. Bacterial Continue abx per ID: vancomycin with pharmacy dosing, Zosyn, azithromycin 09/03 # 4. urine Legionella and pneumococcal antigen negative At [facility], + for Rhinovirus 07/24 . IMMUNO: Sjogren's syndrome Rheumatoid arthritis Plaquenil was held on admission due to concern for sepsis, could be resumed if all cultures negative but will hold off for now, on solumedrol. Home dose is 400 mg p.o. daily Evoxac 30 mill grams p.o. 3 times daily for sjogrens is not on formulary. HEME: Chronic anemia Iron deficiency Bilateral posterior tibial venous thrombosis. Obtained bilateral lower extremity ultrasound - results indicate bilateral below knee DVT, bilateral posterial tibial veins. She is symptomatic and also at high risk of extension due to immobility. I am also not able to r/o PE at this time because not candidate for VQ with bilateral infiltrates and not candidate for CT PA due to CKD IV. Therefore, favor treatment in this situation. Discussed with patient and her daughter. On lovenox 1mg/kg q12. Continue ferrous sulfate 325 mg p.o. twice daily. Received iron infusion on . ENDO: Hypothyroidism TSH normal, continue Synthroid 88 mcg p.o. daily Had been on prednisone 5 mg dialy since recent hospitalization at [facility]...now on solumedrol. Monitor bedside glucose while on steroids and administer low-dose insulin sliding scale as indicated PROPH: SCDs/ lovenox for DVT treatment. Monitor for evidence of bleeding. Famotidine for stress ulcer prophylaxis ACCESS: Peripheral IV providing adequate access at this time Dr. Johnson discussed with patient in the evening of 09/03. She was capacitated for medical decision-making. She states she is agreeable to intubation if needed for respiratory failure but wishes to be DNR in the setting of pulseless arrest. alternate code intubation only. 6/5 Lengthy discussion with patient who was initially resistant to intubation and making comments regarding consideration of comfort measures. Ultimately she was agreeable to intubation. She states her daughter is her healthcare surrogate. She indicated she would not want prolonged intubation or trach Leobardo Benitez MD Sep 07, 2017 12:18
[2017-09-07] MEDS ORDERED: FUROSEMIDE 20 MG/2 ML VIAL IV PUSH ONE (13:00)
--- NOTE | 2017-09-07 13:23 | HHI.IDPN ---
Subjective Subjective Remarks Patient is a 76-year-old female, came from a rehab facility, brought into the hospital for evaluation of shortness of breath. Patient's history significant for a recent hospitalization at [facility] from July 24 - August 06. Workup at that time showed evidence of bilateral pneumonia. She also had an abnormal urinalysis. Sputum culture grew normal respiratory tyler. Her viral testing was positive for rhino enterovirus. She was seen by wire sawyer as well as infectious disease during that hospitalization. According to the son-in-law patient was on nasal O2 during the whole hospital stay, and from there she was discharged to a rehab facility on nasal O2. She was on oral antibiotics in the rehab facility. Patient reportedly was doing really well the first week after discharge, but after that she started developing fatigue. She has had 3 chest x-ray done in the nursing facility. The chest x-ray on August 07 showed bilateral upper lobe infiltrates. Chest x-ray August 17 showed some improvement in the right upper lobe infiltrate, no mention of the left upper lobe infiltrate. Chest x-ray August 23 is now showing by basilar consolidation. There was no mention of any fever. Patient apparently has had problem with nausea and vomiting in the morning usually after she takes her medications. However throughout the day she tolerates her diet. She has had some cough but has not really been worsening. Patient has not complained of any chest pain. One day prior to her admission, her family took her out for about 4 hours. She was very weak, and they did not really notice any significant change in her respiratory status. According to the son-in-law, the plan was for the patient to be discharged to home on August 04. On the day of admission patient became short of breath, and she was brought into the hospital for further evaluation and treatment. She ended up getting intubated. Her chest x-ray has shown bilateral pulmonary infiltrates. Her WBC is elevated at more than 20,000. Urinalysis is unremarkable. BNP is 400+. Previous echo at [facility] showed good ejection fraction of greater than 50%. Patient is currently on Zithromax, Zosyn, and vancomycin. She is afebrile. Urine for Legionella and pneumococcal antigen are negative. Influenza antigen is negative. Infectious disease consultation has been requested to evaluate the patient with persistent bilateral pulmonary infiltrates. Notes reviewed Temps ok BP ok Not on pressors Sedated on the vent, FiO2 0.4 Not much from ET Bronch G/S neg CT chest noted CXR infiltrates better Antibiotics Zosyn Zithromax Vancomycin Current Medications Medications (Trade) Dose Ordered Sig/Tony Route Start Time Stop Time Status Last Admin Potassium Chloride 100 ml @ 50 mls/hr Q2H PRN IV 09/03/17 09:45 Potassium Chloride 100 ml @ 50 mls/hr Q2H PRN IV 09/03/17 09:45 (K-Lyte Cl Eff) 50 meq UNSCH PRN PO 09/03/17 09:45 09/05/17 06:27 Potassium Chloride 100 ml @ 25 mls/hr UNSCH PRN IV 09/03/17 09:45 Potassium Chloride 100 ml @ 50 mls/hr Q2H PRN IV 09/03/17 09:45 09/05/17 09:56 Magnesium Sulfate 4 gm/Sodium Chloride 100 ml @ 50 mls/hr UNSCH PRN IV 09/03/17 09:45 (Mag-Ox) 800 mg UNSCH PRN PO 09/03/17 09:45 Magnesium Sulfate 2 gm/Sodium Chloride 100 ml @ 50 mls/hr UNSCH PRN IV 09/03/17 09:45 (K-Phos) 2,000 mg Q4H PRN PO 09/03/17 09:45 Sodium Phosphate 30 mmol/Sodium Chloride 250 ml @ 42 mls/hr UNSCH PRN IV 09/03/17 09:45 (K-Phos) 2,000 mg UNSCH PRN PO/TUBE 09/03/17 09:45 Potassium Phosphate 30 mmol/ Sodium Chloride 260 ml @ 42 mls/hr UNSCH PRN IV 09/03/17 09:45 Pharmacy Profile Note 0 ml @ 0 mls/hr UNSCH OTHER 09/03/17 10:30 Azithromycin 500 mg/Sodium Chloride 250 ml @ 250 mls/hr Q24H IV 09/03/17 12:00 09/07/17 12:05 Piperacillin Sod/ Tazobactam Sod 50 ml @ 100 mls/hr Q6H IV 09/03/17 13:00 09/07/17 13:04 (NS Flush) 2 ml UNSCH PRN IV FLUSH 09/03/17 10:45 (NS Flush) 2 ml BID IV FLUSH 09/03/17 21:00 09/07/17 09:00 (Tylenol) 650 mg Q6H PRN PO 09/03/17 10:45 (Duoneb Neb) 1 ampule Q6HR NEB INH 09/03/17 16:00 09/07/17 09:56 (Albuterol Neb) 2.5 mg Q2HR NEB PRN INH 09/03/17 10:45 ([facility] Nursing Information) 1 Q361D XX 09/03/17 10:45 09/03/17 10:45 (Chlorhexidine 2% Cloth) 3 pack Taper DAILY@04 TOP 09/04/17 04:00 08/31/18 03:59 09/07/17 03:54 (Chlorhexidine 2% Cloth) 3 pack UNSCH PRN TOP 09/03/17 10:45 (Nancy-Colace) 1 tab BID PO 09/03/17 21:00 09/07/17 09:00 (Milk Of Magnesia Liq) 30 ml Q12H PRN PO 09/03/17 10:45 (Senokot) 17.2 mg Q12H PRN PO 09/03/17 10:45 (Dulcolax Supp) 10 mg DAILY PRN RECTAL 09/03/17 10:45 (Lactulose Liq) 30 ml DAILY PRN PO 09/03/17 10:45 (Lovenox Inj) 70 mg Q12H SQ 09/03/17 18:00 09/07/17 05:57 (Pepcid) 10 mg BID PO 09/04/17 21:00 09/07/17 09:00 (Neurontin) 100 mg TID PO 09/05/17 09:00 09/07/17 13:03 (CeleXA) 40 mg DAILY PO 09/05/17 09:00 Future Hold 09/05/17 09:02 (Flexeril) 10 mg Q8H PRN PO 09/04/17 19:45 Future Hold (Synthroid) 88 mcg DAILY@0600 PO 09/05/17 06:00 09/07/17 05:57 (Zofran Odt) 4 mg Q6H PRN PO 09/05/17 08:45 09/05/17 09:02 Propofol 100 ml @ 2.25 mls/hr TITRATE PRN IV 09/05/17 09:45 09/07/17 13:05 Fentanyl Citrate 250 ml @ 5 mls/hr TITRATE PRN IV 09/05/17 09:45 09/07/17 11:56 (Peridex 0.12% Liq) 15 ml BID@08,20 MT 09/05/17 20:00 09/07/17 07:59 (Versed Inj) 2 mg Q15M PRN IV PUSH 09/05/17 11:30 Vancomycin HCl 1000 mg/Sodium Chloride 250 ml @ 250 mls/hr Q24H IV 09/05/17 14:00 09/06/17 13:26 ([facility] Ordered Lab Info) SPECIFIC LAB TO BE DRAWN:VANCO TROUGH DATE... ONCE ONCE .XX 09/07/17 13:45 09/07/17 13:46 (Ferrous Sulfate Liq) 300 mg BID OG-TUBE 09/06/17 09:00 09/07/17 09:00 (SoluMEDROL INJ) 80 mg Q8H IV 09/06/17 14:00 09/07/17 05:57 (D50w (Vial) Inj) 50 ml UNSCH PRN IV PUSH 09/06/17 14:00 (Glucagon Inj) 1 mg UNSCH PRN OTHER 09/06/17 14:00 (NovoLOG SUPPLEMENTAL SCALE) 1 Q6H SQ 09/06/17 14:00 09/07/17 07:59 Lines Line no evid of infection Past Medical History COPD/emphysema, she was followed by Dr. Mcmullen while at [facility] CKD stage IV. her daughter states this was secondary to long-term NSAID use. Her sample wrapper is Dr. Jonas Chronic atrial fibrillation; drum saw operator is Dr. Whitley Hyperlipidemia Sjogren's syndrome, rheumatoid arthritis, power electronics engineer is Dr. Mays Hypothyroidism Chronic anemia she has not had blood transfusion but had an IV iron infusion on 08/28/17 at [facility] Vitamin D deficiency Insomnia Osteoarthritis GERD Past Surgical History Hysterectomy Varicose vein stripping Colonoscopy 6 years ago was negative She had an EGD in fall 2016 for workup for anemia which was reportedly negative Allergies: Coded Allergies: codeine (Verified Allergy, Unknown, Hallucinations, 09/03/17) Objective . Vital Signs Date Time Temp Pulse Resp B/P (MAP) Pulse Ox O2 Delivery O2 Flow Rate FiO2 09/07/17 11:05 53 09/07/17 11:04 97.9 53 24 126/63 (84) 100 09/07/17 11:04 100 Mechanical Ventilator 40 09/07/17 11:04 40 09/07/17 10:01 40 09/07/17 07:49 99 40 09/07/17 07:22 97.9 50 24 107/56 (73) 99 09/07/17 07:22 50 09/07/17 07:21 40 09/07/17 07:21 99 Mechanical Ventilator 40 09/07/17 03:48 100 40 09/07/17 03:10 40 09/07/17 03:10 99 Mechanical Ventilator 40 09/07/17 03:10 98.3 84 24 119/59 (79) 99 09/07/17 03:00 59 09/07/17 00:55 99 40 09/06/17 23:06 99 Mechanical Ventilator 40 09/06/17 23:06 97.7 55 24 138/64 (88) 99 09/06/17 23:06 40 09/06/17 23:00 59 09/06/17 20:35 99 40 09/06/17 19:08 98.5 57 24 118/65 (82) 99 09/06/17 19:08 99 Mechanical Ventilator 40 09/06/17 19:08 40 09/06/17 19:00 70 09/06/17 16:53 99 40 09/06/17 15:25 99 Mechanical Ventilator 40 09/06/17 15:24 98.3 63 24 108/63 (78) 98 09/06/17 15:24 60 09/06/17 15:00 68 09/06/17 14:33 98 40 18 18 09/08/17 15:00 23:00 07:00 Intake Total 377.4 ml Balance 377.4 ml IV Total 377.4 ml . Laboratory Tests Test 09/06/17 04:39 09/07/17 03:07 White Blood Count 15.5 TH/MM3 10.5 TH/MM3 Red Blood Count 2.70 MIL/MM3 2.62 MIL/MM3 Hemoglobin 7.9 GM/DL 7.6 GM/DL Hematocrit 24.2 % 22.9 % Mean Corpuscular Volume 89.5 FL 87.3 FL Mean Corpuscular Hemoglobin 29.3 PG 29.2 PG Mean Corpuscular Hemoglobin Concent 32.7 % 33.4 % Red Cell Distribution Width 15.5 % 15.6 % Platelet Count 290 TH/MM3 289 TH/MM3 Mean Platelet Volume 8.0 FL 8.0 FL Neutrophils (%) (Auto) 85.4 % 92.4 % Lymphocytes (%) (Auto) 10.2 % 6.1 % Monocytes (%) (Auto) 3.5 % 1.3 % Eosinophils (%) (Auto) 0.8 % 0.0 % Basophils (%) (Auto) 0.1 % 0.2 % Neutrophils # (Auto) 13.2 TH/MM3 9.7 TH/MM3 Lymphocytes # (Auto) 1.6 TH/MM3 0.6 TH/MM3 Monocytes # (Auto) 0.5 TH/MM3 0.1 TH/MM3 Eosinophils # (Auto) 0.1 TH/MM3 0.0 TH/MM3 Basophils # (Auto) 0.0 TH/MM3 0.0 TH/MM3 CBC Comment DIFF FINAL DIFF FINAL Differential Comment Laboratory Tests Test 09/06/17 04:39 09/07/17 03:07 Blood Urea Nitrogen 23 MG/DL 28 MG/DL Creatinine 1.51 MG/DL 1.63 MG/DL Random Glucose 93 MG/DL 232 MG/DL Calcium Level 8.0 MG/DL 7.8 MG/DL Phosphorus Level 3.5 MG/DL 3.9 MG/DL Magnesium Level 1.9 MG/DL 1.9 MG/DL Sodium Level 139 MEQ/L 139 MEQ/L Potassium Level 3.8 MEQ/L 3.7 MEQ/L Chloride Level 102 MEQ/L 102 MEQ/L Carbon Dioxide Level 24.0 MEQ/L 24.8 MEQ/L Anion Gap 13 MEQ/L 12 MEQ/L Estimat Glomerular Filtration Rate 33 ML/MIN 31 ML/MIN Total Protein 6.1 GM/DL Albumin 1.7 GM/DL Alkaline Phosphatase 94 U/L Aspartate Amino Transf (AST/SGOT) 42 U/L Alanine Aminotransferase (ALT/SGPT) 32 U/L Total Bilirubin 0.3 MG/DL Microbiology Date/Time Source Procedure Growth Status 09/05/17 10:50 Bronchial Washings Right Mid Lobe Fungal Smear - Final NO FUNGAL ELEMENTS SEEN. Resulted 09/05/17 10:50 Bronchial Washings Right Mid Lobe Fungal Culture Pending Resulted 09/05/17 10:50 Bronchial Washings Right Mid Lobe Acid Fast Stain - Final NO ACID FAST BACILLI SEEN Resulted 09/05/17 10:50 Bronchial Washings Right Mid Lobe Mycobacterial Culture Pending Resulted 09/05/17 10:50 Bronchial Washings Right Mid Lobe Gram Stain - Final Complete 09/05/17 10:50 Bronchial Washings Right Mid Lobe Bronchial Culture - Final NO GROWTH IN 48 HOURS. Complete Imaging Last 48 hours Impressions Chest X-Ray 09/07/17 Signed Impressions: CONCLUSION: Nasogastric tube and endotracheal tube in good position. Improved bilateral air space disease. Last Impressions Chest X-Ray 09/05/17 Signed Impressions: CONCLUSION: 1. Endotracheal tube is in appropriate position with tip measuring approximate ly 4.6 cm from the ricky. 2. Patchy bilateral airspace consolidation is stable. Chest CT 09/05/17 Signed Impressions: CONCLUSION: 1. Large bilateral pleural effusions, patchy bilateral consolidation and adeno jhoan. 2. Mild aneurysmal dilatation of the aorta. 3. Atherosclerosis. Renal Ultrasound 09/03/17 Signed Impressions: CONCLUSION: 1. No obstructive uropathy or other acute abnormality demonstrated. 2. Small, benign cyst of the right upper pole. Lower Extremity Ultrasound 09/03/17 Signed Impressions: CONCLUSION: Bilateral below the knee lower extremity DVT as above. Physical Exam GENERAL: sedated on the vent, not in respiratory distress. SKIN: Cool and dry. No generalized rash, no ecchymoses and no evidence of embolic lesions. HEAD: Atraumatic. Normocephalic. No temporal wasting, or tenderness. EYES: [place] conjunctiva. No petechia or hemorrhage. Pupils equal, round and reactive to light. No scleral icterus. No injection or drainage. EARS, NOSE AND THROAT: Nose without bleeding or purulent nasal discharge. She is orally intubated. NECK: Trachea midline. Supple and not tender, no meningeal signs CARDIOVASCULAR: Regular rate and rhythm. No murmurs, rubs or gallops heard RESPIRATORY: few rales, no wheezing ABDOMEN: Soft, nondistended, no reaction to deep palpation.. Bowel sounds present and normoactive. No organomegaly. EXTREMITIES: No clubbing, cyanosis, or edema. No joint effusion noted. NEUROLOGICAL: Sedated. No Babinski or ankle clonus. PSYCHIATRIC: Unable to assess. LINE: No evidence of infection Assessment & Plan Remarks IMPRESSION Bilateral pulmonary infiltrates, etiology? - has been treated for PNA at [facility] - ?new PNA, aspiration, has had problem with vomiting - ?other inflammatory etiology Respiratory failure, with zoran infiltrates - need to R/O PE, has zoran LE DVT Zoran LE DVT Known RA, Sjogren syndrome CKD RECOMMENDATION Stop Zosyn Stop vanco Rocephin Continue Zithromax On steroids Monitor temps Monitor progress Kady Corcoran MD Sep 07, 2017 13:23
[2017-09-07] MEDS ORDERED: PHARMACY ORDERED LAB ONE (13:45)
--- NOTE | 2017-09-07 15:24 | HHI.PR ---
Subjective Remarks sedated on the ventilator Objective Vital Signs Date Time Temp Pulse Resp B/P (MAP) Pulse Ox O2 Delivery O2 Flow Rate FiO2 09/07/17 15:11 50 09/07/17 15:10 40 09/07/17 15:10 97.9 50 20 127/83 (98) 100 09/07/17 15:09 100 Mechanical Ventilator 40 09/07/17 13:51 95 40 09/07/17 11:05 53 09/07/17 11:04 97.9 53 24 126/63 (84) 100 09/07/17 11:04 100 Mechanical Ventilator 40 09/07/17 11:04 40 09/07/17 10:01 40 09/07/17 07:49 99 40 09/07/17 07:22 97.9 50 24 107/56 (73) 99 09/07/17 07:22 50 09/07/17 07:21 40 09/07/17 07:21 99 Mechanical Ventilator 40 09/07/17 03:48 100 40 09/07/17 03:10 40 09/07/17 03:10 99 Mechanical Ventilator 40 09/07/17 03:10 98.3 84 24 119/59 (79) 99 09/07/17 03:00 59 09/07/17 00:55 99 40 09/06/17 23:06 99 Mechanical Ventilator 40 09/06/17 23:06 97.7 55 24 138/64 (88) 99 09/06/17 23:06 40 09/06/17 23:00 59 09/06/17 20:35 99 40 09/06/17 19:08 98.5 57 24 118/65 (82) 99 09/06/17 19:08 99 Mechanical Ventilator 40 09/06/17 19:08 40 09/06/17 19:00 70 09/06/17 16:53 99 40 09/06/17 15:25 99 Mechanical Ventilator 40 I/O 09/06/17 09/06/17 09/06/17 09/07/17 09/07/17 09/07/17 07:00 15:00 23:00 07:00 15:00 23:00 Intake Total 857.4 ml 1856 ml 629.1 ml 427.4 ml Output Total 625 ml 585 ml 1050 ml Balance 232.4 ml 1271 ml -420.9 ml 427.4 ml Intake Oral 0 ml IV Total 237.4 ml 1496 ml 299.1 ml 427.4 ml Tube Feeding 250 ml 270 ml Tube Irrigant 370 ml 90 ml 330 ml Output Urine Total 625 ml 585 ml 1050 ml # Bowel Movements 0 0 0 Result Diagram: 09/07/1730609/07/17306 Objective Remarks GENERAL: SKIN: Warm and dry. HEAD: Atraumatic. Normocephalic. EYES: Pupils equal and round. No scleral icterus. No injection or drainage. ENT: No nasal bleeding or discharge. Mucous membranes pink and moist. NECK: Trachea midline. No JVD. CARDIOVASCULAR: Regular rate and rhythm. RESPIRATORY: No accessory muscle use. Clear to auscultation. Breath sounds equal bilaterally. GASTROINTESTINAL: Abdomen soft, non-tender, nondistended. Hepatic and splenic margins not palpable. MUSCULOSKELETAL: Extremities without clubbing, cyanosis, or edema. No obvious deformities. NEUROLOGICAL: Awake and alert. No obvious cranial nerve deficits. Motor grossly within normal limits. Five out of 5 muscle strength in the arms and legs. Normal speech. PSYCHIATRIC: Appropriate mood and affect; insight and judgment normal. Assessment and Plan Assessment and Plan ass respiratory failure pneumonia [employer] PLAN VENT SUPPORT ANTIBIOTIC THERAPY PER ID WEAN TOLERATED Eufemia Fall MD Sep 07, 2017 15:24
[2017-09-07] MEDS: cefTRIAXone INJ 2,000 MG in SODIUM CHLORIDE 0.9% INJ 100 ML IV SCH (16:54)
[2017-09-08] VITALS (14 sets, daily range): BP systolic 125–169; BP diastolic 60–78; PULSE 51–109; RESP 16–20; TEMP 97.9–99; O2SAT 96–100
[2017-09-08] MEDS: INSULIN ASPART SUPPLEMENTAL SCALE SQ SCH ×4 (01:12→20:00)
[2017-09-08] MEDS: PROPOFOL 1000 MG/100 ML INJ 100 ML IV PRN ×2 (03:30→11:50)
[2017-09-08] MEDS: CHLORHEXIDINE GLUCONATE 2 % 1 PACK (2 CLOTHS) TOP SCH (03:30)
[2017-09-08 04:26] LABS: BASOPHIL % 0.1 % (0.0-2.0); HEMATOCRIT 26.8 % (35.0-46.0); HEMOGLOBIN 8.7 GM/DL (11.6-15.3); LYMPH % 4.5 % (9.0-44.0); LYMPHOCYTE # 0.9 TH/MM3 (1.0-4.8); MEAN CORPUSCULAR HEMOGLOBIN 29.3 PG (27.0-34.0); MEAN CORPUSCULAR HGB CONC 32.6 % (32.0-36.0); MONO % 2.7 % (0.0-8.0); MONOCYTE # 0.6 TH/MM3 (0-0.9); NEUT % 92.7 % (16.0-70.0); PLATELET COUNT 322 TH/MM3 (150-450); RED BLOOD COUNT 2.97 MIL/MM3 (4.00-5.30); RED CELL DISTRIBUTION WIDTH 15.5 % (11.6-17.2); WHITE BLOOD COUNT 20.5 TH/MM3 (4.0-11.0)
[2017-09-08 04:46] LABS: ALBUMIN 1.9 GM/DL (3.4-5.0); AST (GOT) 52 U/L (15-37); BICARBONATE 25.3 MEQ/L (21.0-32.0); BLOOD UREA NITROGEN 37 MG/DL (7-18); CALCIUM 7.7 MG/DL (8.5-10.1); CHLORIDE 103 MEQ/L (98-107); CREATININE 1.45 MG/DL (0.50-1.00); GLOMERULAR FILTRATION RATE 35 ML/MIN (>89); GLUCOSE,RANDOM 166 MG/DL (74-106); SODIUM (NA) 140 MEQ/L (136-145)
[2017-09-08 04:48] LABS: ALT (GPT) 47 U/L (10-53)
[2017-09-08 04:49] LABS: ALKALINE PHOSPHATASE 113 U/L (45-117); TOTAL BILIRUBIN ADULT 0.2 MG/DL (0.2-1.0); TOTAL PROTEIN 6.6 GM/DL (6.4-8.2)
[2017-09-08] MEDS: methylPREDNISolone SOD SUCC 125 MG/2 ML VIAL IV SCH ×3 (05:38→23:21)
[2017-09-08] MEDS: LEVOTHYROXINE SODIUM 88 MCG TAB PO SCH (05:38)
[2017-09-08] MEDS: ENOXAPARIN SODIUM 80 MG/0.8 ML SYRINGE SQ SCH ×2 (05:48→16:27)
[2017-09-08] MEDS: GABAPENTIN 100 MG CAP PO SCH ×3 (07:48→16:28)
[2017-09-08] MEDS: FAMOTIDINE 20 MG TAB PO SCH ×2 (07:48→20:35)
[2017-09-08] MEDS: FERROUS SULFATE 300 MG /5ML UDC OG-TUBE SCH ×2 (07:48→20:35)
[2017-09-08] MEDS: DOCUSATE SODIUM 50 MG/SENNA 8.6 MG TAB PO SCH ×2 (07:48→20:35)
[2017-09-08] MEDS: CHLORHEXIDINE 0.12% (ORAL KIT) 15 ML CUP MT SCH ×2 (07:49→20:00)
[2017-09-08] MEDS: SODIUM CHLORIDE 0.9% FLUSH 10 ML FLUSH IV FLUSH SCH ×2 (07:57→20:36)
--- NOTE | 2017-09-08 10:55 | RADRPT ---
EXAM DATE: 09/08/2017 10:50 AM EDT AGE/SEX: 76 years / Female INDICATIONS: Shortness of breath. CLINICAL DATA: This is the patient's subsequent encounter. Patient reports that signs and symptoms h ave been present for 4 - 6 days and indicates a pain score of Nonresponsive. MEDICAL/SURGICAL HISTORY: Chronic obstructive pulmonary disease. None. [place] [facility] [place]. [facility] [place] 09/05/2017. . FINDINGS: Portable AP views of the chest demonstrate a normal-sized cardiac silhouette. Multiple EKG lines over lie the patient. Endotracheal tube is present with distal tip measuring 4 cm from the ricky and naso gastric tube coursing beyond the GE junction with distal tip in the gastric body. There is left lower lung zone airspace consolidation, mildly increased from yesterday's examination. Slight blunting of the left costophrenic sulcus is present. The hazy opacity in the right mid and lower lung zone is sta ble. No pneumothorax is seen. CONCLUSION: 1. Increased airspace consolidation in the left lower lung zone with small left pleural effusion. 2. Mild hazy airspace opacity in the right lower lung zone is stable. Electronically signed by: Jorden King MD 09/08/2017 10:54 AM EDT
[2017-09-08] MEDS: AZITHROMYCIN INJ 500 MG in SODIUM CHLOR 0.9% 250 ML INJ 250 ML IV SCH (11:41)
--- NOTE | 2017-09-08 12:10 | HHI.CCPN ---
Subjective Remarks/Hospital Course Patient history is limited due to BiPAP mask in place. History is obtained from patient's daughter and review of records from [facility]. 76-year-old female with past medical history of hypertension, COPD, emphysema,, Sjogren's syndrome, rheumatoid arthritis (on plaquenil), CKD stage IV (followed by Dr. Jonas with plan for eventual home PD), hypothyroidism, chronic anemia with iron deficiency, GERD who presented to [facility] emergency department via [facility] from [facility]. She has recent hospitalization at [facility] on 07/24. She was discharged to [facility] on 08/05. Her daughter states that during this hospitalization she was treated for bilateral pneumonia and had tested positive for rhinovirus. Reportedly echo during that hospitalization showed an EF of 50%. Yesterday she left [facility] for a 4-hour home visit. Her daughter states she was fatigued and laid in bed. She was SOB. She has had a cough productive of clear sputum for 3 days. She denies any chest pain or hemoptysis. She has experienced bilateral lower extremity swelling. Her daughter reports that she [facility] a [facility] however what is documented on transfer paperwork is temp of 97.4. Patient denies any issues with this for nausea. She has vomited every morning for the last week a few minutes after swallowing her morning medications. Upon arrival she is afebrile with night temp at 98.8. She is in A. fib with RVR with rate in the 110s. Blood white blood cell count is 24.6, creatinine of 1.49 , troponin 0 0.21, BNP 1530. She has received Lasix 60 mg IV and has been placed on BiPAP 10/5 and 100% for increased work of breathing. Blood cultures have been obtained and she has been administered vancomycin, Zosyn, DuoNeb in the ED. She states she feels improved compared with arrival. She is agreeable to intubation if needed. 09/04 Diuresed net negative 1650. Was off Bipap to 6 L NC for couple of hours and then placed back on Bipap for desaturation. FIO2 weaned down to 55 from 100 % yesterday. Afebrile. No CP. Cough nonproductive. HAve not yet received records from [facility]. Will request them again. 09/05 Net negative 1760. Did not sleep well last night, worsening hypoxia. Persistent bilateral rales and infiltrates on CXR. She is fatigued and says she can't take it anymore. Initially refusing intubation and indicating she was wanting comfort measures only, however upon discussion with patient and her daughter, Denita, she was agreeable to intubation. Records received from [facility]. She was admitted 07/25/17 with myalgia, headache, cough, weakness, vomiting, diarrhea, visual hallucinations. She was treated with Zosyn and Zithromax and then Rocephin and doxycycline. Sputum culture 07/25 and blood cultures from 07/24 and 07/26 were negative. Urine Legionella and pneumococcal antigens were negative. Viral respiratory PCR was positive for rhino virus 07/27/17. Influenza was negative. CT chest 07/25 showed right upper lobe pneumonia. Echo 07/27/17 showed LVH with ejection fraction 60-65%, diastolic dysfunction, mild to moderate mitral regurgitation. 09/06 CT scan performed yesterday demonstrates bilateral groundglass opacities. Bronchial washing gram stain and fungal stains are negative. Blood cultures negative. 09/07: Remains sedated, orally intubated on mechanical ventilation. Dropped from +3 to +5. Respiratory rate decreased from 24 to 20. Will follow-up ABG. Subjective: 09/08 Placing on CPAP. CXR today with L side opacity that looks worse c/w yesterday. Fluid balance for 24 hours is positive. Will diurese. WBC is 20, no significant secretions with suctioning, afebrile. Follows commands on sedation. Objective Vital Signs Date Time Temp Pulse Resp B/P (MAP) Pulse Ox O2 Delivery O2 Flow Rate FiO2 09/08/17 10:05 100 40 09/08/17 07:00 54 09/08/17 07:00 Mechanical Ventilator 09/08/17 07:00 98.8 20 130/63 (85) 09/04/17 21:03 14.00 Intake and Output 09/08/17 09/08/17 09/09/17 08:00 16:00 00:00 Intake Total 875 ml Output Total 450 ml Balance 425 ml Result Diagram: 09/08/17 0345 09/08/17 0345 Other Results Laboratory Tests Test 09/07/17 13:54 Blood Gas Puncture Site RT RADIAL Blood Gas Patient Temperature 98.6 Blood Gas HCO3 27 mmol/L (22-26) Blood Gas Base Excess 3.4 mmol/L (-2-2) Blood Gas Oxygen Saturation 97 % (90-100) Arterial Blood pH 7.47 (7.380-7.420) Arterial Blood Partial Pressure CO2 37 mmHg (38-42) Arterial Blood Partial Pressure O2 141 mmHg (61-120) Arterial Blood Oxygen Content 13.8 Vol % (12.0-20.0) Arterial Blood Carboxyhemoglobin 1.1 % (0-4) Arterial Blood Methemoglobin 1.3 % (0-2) Blood Gas Hemoglobin 10.0 G/DL (12.0-16.0) Oxygen Delivery Device VENTILATOR Blood Gas Ventilator Setting SEE COMMENTS Blood Gas Inspired Oxygen 40 % Objective Remarks GENERAL: Elderly overweight female who is orotracheally intubated. SKIN: Warm and dry, adequately perfused. HEAD: Atraumatic. Normocephalic. EYES: Pupils equal and round, 2 mm and reactive bilaterally.. No scleral icterus. No injection or drainage. ENT: Orotracheally intubated. No JVD CARDIOVASCULAR: Irregular, no mrg. RESPIRATORY: Coarse bilateral breath sounds. No wheeze. GASTROINTESTINAL: Abdomen soft, non-tender, nondistended. Bowel sounds present. : Hoffman catheter in place with light yellow urine output. MUSCULOSKELETAL: Extremities without clubbing, cyanosis. 1+ pitting bipedal edema. No palpable cords or erythema. NEUROLOGICAL: Opens eyes, pupils reactive, withdraws with all extremities on sedation. A/P Problem List: (1) CKD (chronic kidney disease) stage 4, GFR 15-29 ml/min ICD Code: N18.4 - Chronic kidney disease, stage 4 (severe) Status: Chronic (2) ARDS (adult respiratory distress syndrome) ICD Code: J80 - Acute respiratory distress syndrome Status: Acute (3) Respiratory failure ICD Code: J96.90 - Respiratory failure, unspecified, unspecified whether with hypoxia or hypercapnia Status: Acute (4) GERD (gastroesophageal reflux disease) ICD Code: K21.9 - Gastro-esophageal reflux disease without esophagitis Status: Chronic (5) Hiatal hernia ICD Code: K44.9 - Diaphragmatic hernia without obstruction or gangrene Status: Chronic Assessment and Plan NEURO: Peripheral neuropathy Depression Insomnia Continue Neurontin 100 mg's p.o. 3 times daily hold citalopram and flexeril. Propofol/fentanyl for sedation. May use precedex during extubation. Daily sedation vacation Target RASS -2 RESP: Acute hypoxemic respiratory failure ARDS, moderate severity Recent pneumonia with multifocal opacities on imaging at [facility] in July, rhinovirus positive. Initially she wished to hold off on intubation when admitted. Failed Bipap and agreed to intubation 09/05. CT chest showed bilateral ground glass opacities, bilateral pleural effusions Infiltrates did not initially change with diuresis, however significant improvement in CXR on 09/07 so part of this may have been secondary to volume from diastolic dysfunction and CKD. Infection seems less likely. Possible inflammatory in nature such as AIP, secondary to aspiration (has had vomiting) could be secondary to known connective tissue disease. Continuing trial of Solumedrol 80 mg IV q8 hours. Requested PFTs from Dr. Mcmullen's office performed Monday. DuoNeb every 6 hours. Albuterol every 2 hours as needed. F/u CXR in am. CV: Hypertension Paroxysmal atrial fibrillation Hyperlipidemia Diastolic heart failure Lactic acid normal Diuresed with lasix, net negative >3.5 L since admission. Echo at [facility] -[facility] with ejection fraction 60-65%, diastolic dysfunction, mild left atrial dilation, Mild/moderate MR Repeat echo with LVEF 55-60%, mild to moderate mitral regurgitation, PASP 30 mmHg EKG in the emergency department has significant artifact. It appears consistent with A. fib. No remarkable ST changes. Serial troponins flat at 0.2 Aspirin 325 mg daily . GI: GERD Hiatal hernia Famotidine as per below OGT, Jevity 1.5 with goal rate 55 mL/h per nutrition recommendations Bowel regimen FEN/RENAL: CKD stage IV Acute hypokalemia Hoffman in place . Previously had Purewick catheter prior to sedation. ICU electrolyte placement protocol. Followed by Dr. Jonas as outpatient. Classes for home peritoneal dialysis were tentatively scheduled for January. ID: Leukocytosis, blood culture 09/03 - negative. Influenza screen negative. Bronchial washings sent from [facility] 09/05 - secretions appear clear. Gram stain, fungal stain and acid fast stain negative. Bacterial cx NGTD. Continue abx per ID: ceftriaxone, azithromycin 09/03 #6. urine Legionella and pneumococcal antigen negative At [facility], + for Rhinovirus 07/24 . IMMUNO: Sjogren's syndrome Rheumatoid arthritis Plaquenil was held on admission due to concern for sepsis, could be resumed if all cultures negative but will hold off for now, on solumedrol. Home dose is 400 mg p.o. daily Evoxac 30 mill grams p.o. 3 times daily for sjogrens is not on formulary. HEME: Chronic anemia Iron deficiency Bilateral posterior tibial venous thrombosis. Obtained bilateral lower extremity ultrasound - results indicate bilateral below knee DVT, bilateral posterial tibial veins. She is symptomatic and also at high risk of extension due to immobility. I am also not able to r/o PE at this time because not candidate for VQ with bilateral infiltrates and not candidate for CT PA due to CKD IV. Therefore, favor treatment in this situation. Discussed with patient and her daughter. On lovenox 1mg/kg q12. Continue ferrous sulfate 325 mg p.o. twice daily. Received iron infusion on . ENDO: Hypothyroidism TSH normal, continue Synthroid 88 mcg p.o. daily Had been on prednisone 5 mg dialy since recent hospitalization at [facility]...now on solumedrol. Monitor bedside glucose while on steroids and administer low-dose insulin sliding scale as indicated PROPH: SCDs/ lovenox for DVT treatment. Monitor for evidence of bleeding. Famotidine for stress ulcer prophylaxis ACCESS: Peripheral IV providing adequate access at this time Dr. Johnson discussed with patient in the evening of 09/03. She was capacitated for medical decision-making. She states she is agreeable to intubation if needed for respiratory failure but wishes to be DNR in the setting of pulseless arrest. alternate code intubation only. 09/05 Lengthy discussion with patient who was initially resistant to intubation and making comments regarding consideration of comfort measures. Ultimately she was agreeable to intubation. She states her daughter is her healthcare surrogate. She indicated she would not want prolonged intubation or trach Level 3 Problem Qualifiers (1) Respiratory failure: Qualified Codes: J96.01 - Acute respiratory failure with hypoxia Pamela Johnson MD Sep 08, 2017 12:10
[2017-09-08] MEDS ORDERED: FUROSEMIDE 40 MG/4 ML VIAL IV PUSH ONE (12:15)
[2017-09-08] MEDS ORDERED: POTASSIUM CHLORIDE 25 MEQ EFFERVESCENT TAB PO ONE (12:15)
--- NOTE | 2017-09-08 12:48 | HHI.IDPN ---
Subjective Subjective Remarks Patient is a 76-year-old female, came from a rehab facility, brought into the hospital for evaluation of shortness of breath. Patient's history significant for a recent hospitalization at [facility] from July 24 - August 06. Workup at that time showed evidence of bilateral pneumonia. She also had an abnormal urinalysis. Sputum culture grew normal respiratory tyler. Her viral testing was positive for rhino enterovirus. She was seen by gauntlet pairer as well as infectious disease during that hospitalization. According to the son-in-law patient was on nasal O2 during the whole hospital stay, and from there she was discharged to a rehab facility on nasal O2. She was on oral antibiotics in the rehab facility. Patient reportedly was doing really well the first week after discharge, but after that she started developing fatigue. She has had 3 chest x-ray done in the nursing facility. The chest x-ray on August 07 showed bilateral upper lobe infiltrates. Chest x-ray August 17 showed some improvement in the right upper lobe infiltrate, no mention of the left upper lobe infiltrate. Chest x-ray August 23 is now showing by basilar consolidation. There was no mention of any fever. Patient apparently has had problem with nausea and vomiting in the morning usually after she takes her medications. However throughout the day she tolerates her diet. She has had some cough but has not really been worsening. Patient has not complained of any chest pain. One day prior to her admission, her family took her out for about 4 hours. She was very weak, and they did not really notice any significant change in her respiratory status. According to the son-in-law, the plan was for the patient to be discharged to home on August 04. On the day of admission patient became short of breath, and she was brought into the hospital for further evaluation and treatment. She ended up getting intubated. Her chest x-ray has shown bilateral pulmonary infiltrates. Her WBC is elevated at more than 20,000. Urinalysis is unremarkable. BNP is 400+. Previous echo at [facility] showed good ejection fraction of greater than 50%. Patient is currently on Zithromax, Zosyn, and vancomycin. She is afebrile. Urine for Legionella and pneumococcal antigen are negative. Influenza antigen is negative. Infectious disease consultation has been requested to evaluate the patient with persistent bilateral pulmonary infiltrates. Notes reviewed Temps ok BP ok Not on pressors Sedated on the vent, FiO2 0.4 Not much from ET Bronch G/S neg CT chest noted CXR infiltrates worse today WBC up to 20 Antibiotics Rocephin Zithromax Current Medications Medications (Trade) Dose Ordered Sig/Tony Route Start Time Stop Time Status Last Admin Potassium Chloride 100 ml @ 50 mls/hr Q2H PRN IV 09/03/17 09:45 Potassium Chloride 100 ml @ 50 mls/hr Q2H PRN IV 09/03/17 09:45 (K-Lyte Cl Eff) 50 meq UNSCH PRN PO 09/03/17 09:45 09/05/17 06:27 Potassium Chloride 100 ml @ 25 mls/hr UNSCH PRN IV 09/03/17 09:45 Potassium Chloride 100 ml @ 50 mls/hr Q2H PRN IV 09/03/17 09:45 09/05/17 09:56 Magnesium Sulfate 4 gm/Sodium Chloride 100 ml @ 50 mls/hr UNSCH PRN IV 09/03/17 09:45 (Mag-Ox) 800 mg UNSCH PRN PO 09/03/17 09:45 Magnesium Sulfate 2 gm/Sodium Chloride 100 ml @ 50 mls/hr UNSCH PRN IV 09/03/17 09:45 (K-Phos) 2,000 mg Q4H PRN PO 09/03/17 09:45 Sodium Phosphate 30 mmol/Sodium Chloride 250 ml @ 42 mls/hr UNSCH PRN IV 09/03/17 09:45 (K-Phos) 2,000 mg UNSCH PRN PO/TUBE 09/03/17 09:45 Potassium Phosphate 30 mmol/ Sodium Chloride 260 ml @ 42 mls/hr UNSCH PRN IV 09/03/17 09:45 Azithromycin 500 mg/Sodium Chloride 250 ml @ 250 mls/hr Q24H IV 09/03/17 12:00 09/08/17 11:41 (NS Flush) 2 ml UNSCH PRN IV FLUSH 09/03/17 10:45 09/07/17 21:43 (NS Flush) 2 ml BID IV FLUSH 09/03/17 21:00 09/08/17 07:57 (Tylenol) 650 mg Q6H PRN PO 09/03/17 10:45 (Albuterol Neb) 2.5 mg Q2HR NEB PRN INH 09/03/17 10:45 09/07/17 20:40 ([facility]) 1 Q361D XX 09/03/17 10:45 09/03/17 10:45 (Chlorhexidine 2% Cloth) 3 pack Taper DAILY@04 TOP 09/04/17 04:00 08/31/18 03:59 09/08/17 03:30 (Chlorhexidine 2% Cloth) 3 pack UNSCH PRN TOP 09/03/17 10:45 (Nancy-Colace) 1 tab BID PO 09/03/17 21:00 09/08/17 07:48 (Milk Of Magnesia Liq) 30 ml Q12H PRN PO 09/03/17 10:45 (Senokot) 17.2 mg Q12H PRN PO 09/03/17 10:45 (Dulcolax Supp) 10 mg DAILY PRN RECTAL 09/03/17 10:45 (Lactulose Liq) 30 ml DAILY PRN PO 09/03/17 10:45 (Lovenox Inj) 70 mg Q12H SQ 09/03/17 18:00 09/08/17 05:48 (Pepcid) 10 mg BID PO 09/04/17 21:00 09/08/17 07:48 (Neurontin) 100 mg TID PO 09/05/17 09:00 09/08/17 11:41 (CeleXA) 40 mg DAILY PO 09/05/17 09:00 Future Hold 09/05/17 09:02 (Flexeril) 10 mg Q8H PRN PO 09/04/17 19:45 Future Hold (Synthroid) 88 mcg DAILY@0600 PO 09/05/17 06:00 09/08/17 05:38 (Zofran Odt) 4 mg Q6H PRN PO 09/05/17 08:45 09/05/17 09:02 Propofol 100 ml @ 2.25 mls/hr TITRATE PRN IV 09/05/17 09:45 09/08/17 11:50 Fentanyl Citrate 250 ml @ 5 mls/hr TITRATE PRN IV 09/05/17 09:45 09/07/17 11:56 (Peridex 0.12% Liq) 15 ml BID@08,20 MT 09/05/17 20:00 09/08/17 07:49 (Versed Inj) 2 mg Q15M PRN IV PUSH 09/05/17 11:30 (Ferrous Sulfate Liq) 300 mg BID OG-TUBE 09/06/17 09:00 09/08/17 07:48 (SoluMEDROL INJ) 80 mg Q8H IV 09/06/17 14:00 09/08/17 05:38 (D50w (Vial) Inj) 50 ml UNSCH PRN IV PUSH 09/06/17 14:00 (Glucagon Inj) 1 mg UNSCH PRN OTHER 09/06/17 14:00 (NovoLOG SUPPLEMENTAL SCALE) 1 Q6H SQ 09/06/17 14:00 09/08/17 07:47 Ceftriaxone Sodium 2000 mg/ Sodium Chloride 100 ml @ 200 mls/hr Q24H IV 09/07/17 15:00 09/07/17 16:54 Lines Line no evid of infection Past Medical History COPD/emphysema, she was followed by Dr. Mcmullen while at [facility] CKD stage IV. her daughter states this was secondary to long-term NSAID use. Her services delivery driver is Dr. Jonas Chronic atrial fibrillation; um specialist is Dr. Whitley Hyperlipidemia Sjogren's syndrome, rheumatoid arthritis, credit administration officer is Dr. Mays Hypothyroidism Chronic anemia she has not had blood transfusion but had an IV iron infusion on 08/28/17 at [facility] Vitamin D deficiency Insomnia Osteoarthritis GERD Past Surgical History Hysterectomy Varicose vein stripping Colonoscopy 6 years ago was negative She had an EGD in fall 2016 for workup for anemia which was reportedly negative Allergies: Coded Allergies: codeine (Verified Allergy, Unknown, Hallucinations, 09/03/17) Objective . Vital Signs Date Time Temp Pulse Resp B/P (MAP) Pulse Ox O2 Delivery O2 Flow Rate FiO2 09/08/17 12:00 99 Mechanical Ventilator 40 09/08/17 12:00 98.4 109 17 169/78 (108) 99 09/08/17 12:00 109 09/08/17 10:05 100 40 09/08/17 07:30 99 40 09/08/17 07:00 54 09/08/17 07:00 99 Mechanical Ventilator 40 09/08/17 07:00 98.8 51 20 130/63 (85) 99 09/08/17 07:00 40 09/08/17 03:34 99 40 09/08/17 03:00 97.9 51 20 125/60 (81) 99 09/08/17 03:00 40 09/08/17 03:00 99 Mechanical Ventilator 40 09/08/17 03:00 51 09/07/17 23:00 53 09/07/17 23:00 99 Mechanical Ventilator 40 09/07/17 23:00 98.8 53 20 122/63 (82) 100 09/07/17 23:00 40 09/07/17 22:20 99 40 09/07/17 20:35 99 40 09/07/17 19:00 98.6 95 20 110/57 (74) 99 09/07/17 19:00 40 09/07/17 19:00 99 Mechanical Ventilator 40 09/07/17 19:00 95 09/07/17 16:05 99 40 09/07/17 15:11 50 09/07/17 15:10 40 09/07/17 15:10 97.9 50 20 127/83 (98) 100 09/07/17 15:09 100 Mechanical Ventilator 40 09/07/17 13:51 95 40 . Laboratory Tests Test 09/07/17 03:07 09/08/17 03:45 White Blood Count 10.5 TH/MM3 20.5 TH/MM3 Red Blood Count 2.62 MIL/MM3 2.97 MIL/MM3 Hemoglobin 7.6 GM/DL 8.7 GM/DL Hematocrit 22.9 % 26.8 % Mean Corpuscular Volume 87.3 FL 90.0 FL Mean Corpuscular Hemoglobin 29.2 PG 29.3 PG Mean Corpuscular Hemoglobin Concent 33.4 % 32.6 % Red Cell Distribution Width 15.6 % 15.5 % Platelet Count 289 TH/MM3 322 TH/MM3 Mean Platelet Volume 8.0 FL 8.0 FL Neutrophils (%) (Auto) 92.4 % 92.7 % Lymphocytes (%) (Auto) 6.1 % 4.5 % Monocytes (%) (Auto) 1.3 % 2.7 % Eosinophils (%) (Auto) 0.0 % 0.0 % Basophils (%) (Auto) 0.2 % 0.1 % Neutrophils # (Auto) 9.7 TH/MM3 19.0 TH/MM3 Lymphocytes # (Auto) 0.6 TH/MM3 0.9 TH/MM3 Monocytes # (Auto) 0.1 TH/MM3 0.6 TH/MM3 Eosinophils # (Auto) 0.0 TH/MM3 0.0 TH/MM3 Basophils # (Auto) 0.0 TH/MM3 0.0 TH/MM3 CBC Comment DIFF FINAL DIFF FINAL Differential Comment Laboratory Tests Test 09/07/17 03:07 09/08/17 03:45 Blood Urea Nitrogen 28 MG/DL 37 MG/DL Creatinine 1.63 MG/DL 1.45 MG/DL Random Glucose 232 MG/DL 166 MG/DL Total Protein 6.1 GM/DL 6.6 GM/DL Albumin 1.7 GM/DL 1.9 GM/DL Calcium Level 7.8 MG/DL 7.7 MG/DL Phosphorus Level 3.9 MG/DL Magnesium Level 1.9 MG/DL Alkaline Phosphatase 94 U/L 113 U/L Aspartate Amino Transf (AST/SGOT) 42 U/L 52 U/L Alanine Aminotransferase (ALT/SGPT) 32 U/L 47 U/L Total Bilirubin 0.3 MG/DL 0.2 MG/DL Sodium Level 139 MEQ/L 140 MEQ/L Potassium Level 3.7 MEQ/L 3.6 MEQ/L Chloride Level 102 MEQ/L 103 MEQ/L Carbon Dioxide Level 24.8 MEQ/L 25.3 MEQ/L Anion Gap 12 MEQ/L 12 MEQ/L Estimat Glomerular Filtration Rate 31 ML/MIN 35 ML/MIN Imaging Last 48 hours Impressions Chest X-Ray 09/07/17 Signed Impressions: CONCLUSION: Nasogastric tube and endotracheal tube in good position. Improved bilateral air space disease. Last Impressions Chest X-Ray 09/05/17 Signed Impressions: CONCLUSION: 1. Endotracheal tube is in appropriate position with tip measuring approximate ly 4.6 cm from the ricky. 2. Patchy bilateral airspace consolidation is stable. Chest CT 09/05/17 Signed Impressions: CONCLUSION: 1. Large bilateral pleural effusions, patchy bilateral consolidation and adeno jhoan. 2. Mild aneurysmal dilatation of the aorta. 3. Atherosclerosis. Renal Ultrasound 09/03/17 Signed Impressions: CONCLUSION: 1. No obstructive uropathy or other acute abnormality demonstrated. 2. Small, benign cyst of the right upper pole. Lower Extremity Ultrasound 09/03/17 Signed Impressions: CONCLUSION: Bilateral below the knee lower extremity DVT as above. Physical Exam GENERAL: sedated on the vent, not in respiratory distress. SKIN: Cool and dry. No generalized rash, no ecchymoses and no evidence of embolic lesions. HEAD: Atraumatic. Normocephalic. No temporal wasting, or tenderness. EYES: [place] conjunctiva. No petechia or hemorrhage. Pupils equal, round and reactive to light. No scleral icterus. No injection or drainage. EARS, NOSE AND THROAT: Nose without bleeding or purulent nasal discharge. She is orally intubated. NECK: Trachea midline. Supple and not tender, no meningeal signs CARDIOVASCULAR: Regular rate and rhythm. No murmurs, rubs or gallops heard RESPIRATORY: few rales, no wheezing ABDOMEN: Soft, nondistended, no reaction to deep palpation.. Bowel sounds present and normoactive. No organomegaly. EXTREMITIES: No clubbing, cyanosis, or edema. No joint effusion noted. NEUROLOGICAL: Sedated. No Babinski or ankle clonus. PSYCHIATRIC: Unable to assess. LINE: No evidence of infection Assessment & Plan Remarks IMPRESSION Bilateral pulmonary infiltrates, etiology? - has been treated for PNA at [facility] - ?new PNA, aspiration, has had problem with vomiting - ?other inflammatory etiology Respiratory failure, with zoran infiltrates - need to R/O PE, has zoran LE DVT Zoran LE DVT Known RA, Sjogren syndrome CKD Leukocytosis, worse, ?steroids RECOMMENDATION Continue Rocephin Continue Zithromax On steroids Monitor temps Monitor progress Follow CBC Dr French covering this weekend Kady Corcoran MD Sep 08, 2017 12:48
[2017-09-08] MEDS: cefTRIAXone INJ 2,000 MG in SODIUM CHLORIDE 0.9% INJ 100 ML IV SCH (15:19)
--- NOTE | 2017-09-08 18:32 | HHI.PR ---
Subjective Remarks sedated on the ventilator Objective Vital Signs Date Time Temp Pulse Resp B/P (MAP) Pulse Ox O2 Delivery O2 Flow Rate FiO2 09/08/17 18:00 63 09/08/17 16:26 40 09/08/17 16:22 96 40 09/08/17 16:00 98.9 61 16 145/65 (91) 99 09/08/17 16:00 99 Mechanical Ventilator 40 09/08/17 16:00 62 09/08/17 15:07 100 40 09/08/17 15:00 40 09/08/17 14:00 68 09/08/17 12:00 99 Mechanical Ventilator 40 09/08/17 12:00 40 09/08/17 12:00 98.4 109 17 169/78 (108) 99 09/08/17 12:00 109 09/08/17 10:05 100 40 09/08/17 07:30 99 40 09/08/17 07:00 54 09/08/17 07:00 99 Mechanical Ventilator 40 09/08/17 07:00 98.8 51 20 130/63 (85) 99 09/08/17 07:00 40 09/08/17 03:34 99 40 09/08/17 03:00 97.9 51 20 125/60 (81) 99 09/08/17 03:00 40 09/08/17 03:00 99 Mechanical Ventilator 40 09/08/17 03:00 51 09/07/17 23:00 53 09/07/17 23:00 99 Mechanical Ventilator 40 09/07/17 23:00 98.8 53 20 122/63 (82) 100 09/07/17 23:00 40 09/07/17 22:20 99 40 09/07/17 20:35 99 40 09/07/17 19:00 98.6 95 20 110/57 (74) 99 09/07/17 19:00 40 09/07/17 19:00 99 Mechanical Ventilator 40 09/07/17 19:00 95 I/O 09/07/17 09/07/17 09/07/17 09/08/17 09/08/17 09/08/17 07:00 15:00 23:00 07:00 15:00 23:00 Intake Total 629.1 ml 427.4 ml 900 ml 875 ml 250 ml 200 ml Output Total 1050 ml 670 ml 450 ml 1200 ml Balance -420.9 ml 427.4 ml 230 ml 425 ml 250 ml -1000 ml Intake Oral 0 ml IV Total 299.1 ml 427.4 ml 286 ml 163 ml 250 ml 100 ml Tube Feeding 554 ml 592 ml Tube Irrigant 330 ml 120 ml Other 60 ml 100 ml Output Urine Total 1050 ml 670 ml 450 ml 1200 ml # Bowel Movements 0 0 1 1 Result Diagram: 09/08/1734409/08/17344 Objective Remarks GENERAL: SKIN: Warm and dry. HEAD: Atraumatic. Normocephalic. EYES: Pupils equal and round. No scleral icterus. No injection or drainage. ENT: No nasal bleeding or discharge. Mucous membranes pink and moist. NECK: Trachea midline. No JVD. CARDIOVASCULAR: Regular rate and rhythm. RESPIRATORY: No accessory muscle use. Clear to auscultation. Breath sounds equal bilaterally. GASTROINTESTINAL: Abdomen soft, non-tender, nondistended. Hepatic and splenic margins not palpable. MUSCULOSKELETAL: Extremities without clubbing, cyanosis, or edema. No obvious deformities. NEUROLOGICAL: Awake and alert. No obvious cranial nerve deficits. Motor grossly within normal limits. Five out of 5 muscle strength in the arms and legs. Normal speech. PSYCHIATRIC: Appropriate mood and affect; insight and judgment normal. Assessment and Plan Assessment and Plan ass respiratory failure pneumonia [employer] PL[employer] VENT SUPPORT ANTIBIOTIC THERAPY PER ID [employer]OLER[employer] Eufemia Fall MD Sep 08, 2017 18:32
[2017-09-09] VITALS (21 sets, daily range): BP systolic 130–162; BP diastolic 69–86; PULSE 57–78; RESP 20–21; TEMP 98.2–99.3; O2SAT 98–100
[2017-09-09] MEDS: PROPOFOL 1000 MG/100 ML INJ 100 ML IV PRN ×2 (00:14→08:29)
[2017-09-09] MEDS: INSULIN ASPART SUPPLEMENTAL SCALE SQ SCH ×4 (02:00→20:00)
[2017-09-09] MEDS: CHLORHEXIDINE GLUCONATE 2 % 1 PACK (2 CLOTHS) TOP SCH (04:00)
--- NOTE | 2017-09-09 04:19 | RADRPT ---
EXAM DATE: 09/09/2017 3:49 AM EDT AGE/SEX: 76 years / Female INDICATIONS: Shortness of breath, possible pulmonary disease. CLINICAL DATA: This is the patient's subsequent encounter. Patient reports that signs and symptoms h ave been present for 1 week and indicates a pain score of Nonresponsive. MEDICAL/SURGICAL HISTORY: Chronic obstructive pulmonary disease. Hysterectomy. [place] [facility] [place]. . FINDINGS: Endotracheal tube in good position. NG tip in stomach. Bilateral mostly basilar airspace disease, lef t greater than right similar to September 08. Small effusions. CONCLUSION: Endotracheal tube and nasogastric tube in good position. Stable bilateral airspace disease, left grea ter than right. Electronically signed by: Juan Manuel Novak MD 09/09/2017 4:18 AM EDT
[2017-09-09 05:19] LABS: AUTOMATED NEUTROPHIL # 20.2 TH/MM3 (1.8-7.7); BASOPHIL % 0.1 % (0.0-2.0); HEMOGLOBIN 8.5 GM/DL (11.6-15.3); LYMPH % 4.3 % (9.0-44.0); LYMPHOCYTE # 0.9 TH/MM3 (1.0-4.8); MEAN CORPUSCULAR HEMOGLOBIN 29.2 PG (27.0-34.0); MEAN CORPUSCULAR HGB CONC 32.8 % (32.0-36.0); MEAN PLATELET VOLUME 8.1 FL (7.0-11.0); MONO % 3.6 % (0.0-8.0); MONOCYTE # 0.8 TH/MM3 (0-0.9); PLATELET COUNT 354 TH/MM3 (150-450); RED BLOOD COUNT 2.92 MIL/MM3 (4.00-5.30); RED CELL DISTRIBUTION WIDTH 15.2 % (11.6-17.2); WHITE BLOOD COUNT 21.9 TH/MM3 (4.0-11.0)
[2017-09-09] MEDS: LEVOTHYROXINE SODIUM 88 MCG TAB PO SCH (05:45)
[2017-09-09] MEDS: methylPREDNISolone SOD SUCC 125 MG/2 ML VIAL IV SCH ×3 (05:45→22:04)
[2017-09-09] MEDS: ENOXAPARIN SODIUM 80 MG/0.8 ML SYRINGE SQ SCH ×2 (05:46→17:29)
[2017-09-09 05:48] LABS: BICARBONATE 28.8 MEQ/L (21.0-32.0); C-REACTIVE PROTEIN 4.09 MG/DL (0.00-0.30); CALCIUM 7.7 MG/DL (8.5-10.1); CREATININE 1.4 MG/DL (0.50-1.00)
[2017-09-09] MEDS ORDERED: POTASSIUM CHLORIDE 25 MEQ EFFERVESCENT TAB OG-TUBE ONE (06:45)
[2017-09-09] MEDS ORDERED: FUROSEMIDE 40 MG/4 ML VIAL IV PUSH ONE ×2 (06:45→18:00)
[2017-09-09 06:48] LABS: ACANTHOCYTES 1+ (NORMAL); BANDS 3 % (0-6); LYMPHOCYTES 4 % (9-44); METAMYELOCYTES 1 % (0-1); MONOCYTES 1 % (0-8); MYELOCYTES 1 % (0-0); NEUTROPHIL # MANUAL DIFF 20.8 TH/MM3 (1.8-7.7); OVALOCYTES 1+ (NORMAL); POLYS (SEG NEUTROPHILS) 89 % (16-70); PROMYELOCYTES 1 % (0-0)
[2017-09-09 06:49] LABS: TOXIC GRANULATION 2+ (NORMAL)
[2017-09-09] MEDS: CHLORHEXIDINE 0.12% (ORAL KIT) 15 ML CUP MT SCH ×2 (08:00→20:00)
[2017-09-09] MEDS: FERROUS SULFATE 300 MG /5ML UDC OG-TUBE SCH ×2 (08:30→21:00)
[2017-09-09] MEDS: FAMOTIDINE 20 MG TAB PO SCH ×2 (08:30→21:00)
[2017-09-09] MEDS: DOCUSATE SODIUM 50 MG/SENNA 8.6 MG TAB PO SCH ×2 (08:31→21:00)
[2017-09-09] MEDS: GABAPENTIN 100 MG CAP PO SCH ×3 (08:31→17:28)
[2017-09-09] MEDS: fentaNYL DRIP 250 ML IV PRN (08:57)
--- NOTE | 2017-09-09 10:51 | HHI.CCPN ---
Subjective Remarks/Hospital Course Patient history is limited due to BiPAP mask in place. History is obtained from patient's daughter and review of records from [facility]. 76-year-old female with past medical history of hypertension, COPD, emphysema,, Sjogren's syndrome, rheumatoid arthritis (on plaquenil), CKD stage IV (followed by Dr. Jonas with plan for eventual home PD), hypothyroidism, chronic anemia with iron deficiency, GERD who presented to [facility] emergency department via [facility] from [facility]. She has recent hospitalization at [facility] on 07/24. She was discharged to [facility] on 08/05. Her daughter states that during this hospitalization she was treated for bilateral pneumonia and had tested positive for rhinovirus. Reportedly echo during that hospitalization showed an EF of 50%. Yesterday she left [facility] for a 4-hour home visit. Her daughter states she was fatigued and laid in bed. She was SOB. She has had a cough productive of clear sputum for 3 days. She denies any chest pain or hemoptysis. She has experienced bilateral lower extremity swelling. Her daughter reports that she [facility] a [facility] the [facility] however what is documented on transfer paperwork is temp of 97.4. Patient denies any issues with this for nausea. She has vomited every morning for the last week a few minutes after swallowing her morning medications. Upon arrival she is afebrile with night temp at 98.8. She is in A. fib with RVR with rate in the 110s. Blood white blood cell count is 24.6, creatinine of 1.49 , troponin 0 0.21, BNP 1530. She has received Lasix 60 mg IV and has been placed on BiPAP 10/5 and 100% for increased work of breathing. Blood cultures have been obtained and she has been administered vancomycin, Zosyn, DuoNeb in the ED. She states she feels improved compared with arrival. She is agreeable to intubation if needed. 09/04 Diuresed net negative 1650. Was off Bipap to 6 L NC for couple of hours and then placed back on Bipap for desaturation. FIO2 weaned down to 55 from 100 % yesterday. Afebrile. No CP. Cough nonproductive. HAve not yet received records from [facility]. Will request them again. 09/05 Net negative 1760. Did not sleep well last night, worsening hypoxia. Persistent bilateral rales and infiltrates on CXR. She is fatigued and says she can't take it anymore. Initially refusing intubation and indicating she was wanting comfort measures only, however upon discussion with patient and her daughter, Denita, she was agreeable to intubation. Records received from [facility]. She was admitted 07/25/17 with myalgia, headache, cough, weakness, vomiting, diarrhea, visual hallucinations. She was treated with Zosyn and Zithromax and then Rocephin and doxycycline. Sputum culture 07/25 and blood cultures from 07/24 and 07/26 were negative. Urine Legionella and pneumococcal antigens were negative. Viral respiratory PCR was positive for rhino virus 07/27/17. Influenza was negative. CT chest 07/25 showed right upper lobe pneumonia. Echo 07/27/17 showed LVH with ejection fraction 60-65%, diastolic dysfunction, mild to moderate mitral regurgitation. 09/06 CT scan performed yesterday demonstrates bilateral groundglass opacities. Bronchial washing gram stain and fungal stains are negative. Blood cultures negative. 09/07: Remains sedated, orally intubated on mechanical ventilation. Dropped from +3 to +5. Respiratory rate decreased from 24 to 20. Will follow-up ABG. 09/08 Placing on CPAP. CXR today with L side opacity that looks worse c/w yesterday. Fluid balance for 24 hours is positive. Will diurese. WBC is 20, no significant secretions with suctioning, afebrile. Follows commands on sedation. Subjective: 09/09 Tolerating CPAP 5/5. Afebrile. Continued diuresis with downtrending creatinine. Objective Vital Signs Date Time Temp Pulse Resp B/P (MAP) Pulse Ox O2 Delivery O2 Flow Rate FiO2 09/09/17 10:00 64 09/09/17 08:06 100 40 09/09/17 08:00 Mechanical Ventilator 09/09/17 08:00 98.8 21 157/76 (103) Intake and Output 09/09/17 09/09/17 09/09/17 07:59 15:59 23:59 Intake Total 712 ml Output Total 450 ml Balance 262 ml Result Diagram: 09/09/17 0358 09/09/17 0358 Objective Remarks GENERAL: Elderly overweight female who is orotracheally intubated. SKIN: Warm and dry, adequately perfused. HEAD: Atraumatic. Normocephalic. EYES: Pupils equal and round, 2 mm and reactive bilaterally.. No scleral icterus. No injection or drainage. ENT: Orotracheally intubated. No JVD CARDIOVASCULAR: regular, sinus on monitor with rate in the 70s., no mrg. RESPIRATORY: Coarse bilateral breath sounds. No wheeze. GASTROINTESTINAL: Abdomen soft, non-tender, nondistended. Bowel sounds present. : Hoffman catheter in place with light yellow urine output. MUSCULOSKELETAL: Extremities without clubbing, cyanosis. edema decreased in lower legs, pitting edema of dependent portion of buttocks bilat. No palpable cords or erythema. NEUROLOGICAL: Opens eyes to voice, makes eye contact, pupils reactive, Moves all extremities to command. A/P Problem List: (1) CKD (chronic kidney disease) stage 4, GFR 15-29 ml/min ICD Code: N18.4 - Chronic kidney disease, stage 4 (severe) Status: Chronic (2) ARDS (adult respiratory distress syndrome) ICD Code: J80 - Acute respiratory distress syndrome Status: Acute (3) Respiratory failure ICD Code: J96.90 - Respiratory failure, unspecified, unspecified whether with hypoxia or hypercapnia Status: Acute (4) GERD (gastroesophageal reflux disease) ICD Code: K21.9 - Gastro-esophageal reflux disease without esophagitis Status: Chronic (5) Hiatal hernia ICD Code: K44.9 - Diaphragmatic hernia without obstruction or gangrene Status: Chronic Assessment and Plan NEURO: Peripheral neuropathy Depression Insomnia Continue Neurontin 100 mg's p.o. 3 times daily hold citalopram and flexeril. Propofol/fentanyl for sedation. May use precedex during extubation. Daily sedation vacation Target RASS -2 RESP: Acute hypoxemic respiratory failure ARDS, moderate severity Recent pneumonia with multifocal opacities on imaging at [facility] in July, rhinovirus positive. Initially she wished to hold off on intubation when admitted. Failed Bipap and agreed to intubation 09/05. CT chest showed bilateral ground glass opacities, bilateral pleural effusions Infiltrates did not initially change with diuresis, however significant improvement in CXR on 09/07 so part of this may have been secondary to volume from diastolic dysfunction and CKD. Infection seems less likely. Possible inflammatory in nature such as AIP, secondary to aspiration (has had vomiting) could be secondary to known connective tissue disease. Continue Solumedrol 80 mg IV q8 hours. Requested PFTs from Dr. Mcmullen's office performed Monday. DuoNeb every 6 hours. Albuterol every 2 hours as needed. CV: Hypertension Paroxysmal atrial fibrillation, now in sinus rhythm Hyperlipidemia Echo at [facility] -LVH with ejection fraction 60-65%, diastolic dysfunction, mild left atrial dilation, Mild/moderate MR Repeat echo with LVEF 55-60%, mild to moderate mitral regurgitation, PASP 30 mmHg EKG in the emergency department has significant artifact. It appears consistent with A. fib. No remarkable ST changes. Serial troponins flat at 0.2 Aspirin 325 mg daily . GI: GERD Hiatal hernia Famotidine as per below OGT, Jevity 1.5 with goal rate 55 mL/h per nutrition recommendations Bowel regimen FEN/RENAL: CKD stage IV Acute hypokalemia Hoffman in place . ICU electrolyte placement protocol. Followed by Dr. Jonas as outpatient. Classes for home peritoneal dialysis were tentatively scheduled for January. ID: Leukocytosis, blood culture / - negative. Influenza screen negative. Bronchial washings sent from [facility] 09/05 - secretions appear clear. Gram stain, fungal stain and acid fast stain negative. Bacterial cx NGTD. Continue abx per ID: ceftriaxone, azithromycin 09/03 #7 urine Legionella and pneumococcal antigen negative At [facility], + for Rhinovirus 07/24 . IMMUNO: Sjogren's syndrome Rheumatoid arthritis Plaquenil was held on admission due to concern for sepsis, could be resumed if all cultures negative but will hold off for now, on solumedrol. Home dose is 400 mg p.o. daily Evoxac 30 mill grams p.o. 3 times daily for sjogrens is not on formulary. HEME: Chronic anemia Iron deficiency Bilateral posterior tibial venous thrombosis. Obtained bilateral lower extremity ultrasound - results indicate bilateral below knee DVT, bilateral posterial tibial veins. She is symptomatic and also at high risk of extension due to immobility. I am also not able to r/o PE at this time because not candidate for VQ with bilateral infiltrates and not candidate for CT PA due to CKD IV. Therefore, favor treatment in this situation. Discussed with patient and her daughter. On lovenox 1mg/kg q12. Continue ferrous sulfate 325 mg p.o. twice daily. Received iron infusion on . ENDO: Hypothyroidism TSH normal, continue Synthroid 88 mcg p.o. daily Had been on prednisone 5 mg daily since recent hospitalization at [facility]...now on solumedrol. Monitor bedside glucose while on steroids and administer low-dose insulin sliding scale as indicated PROPH: SCDs/ lovenox for DVT treatment. Monitor for evidence of bleeding. Famotidine for stress ulcer prophylaxis ACCESS: Peripheral IV providing adequate access at this time Dr. Johnson discussed with patient in the evening of 09/03. She was capacitated for medical decision-making. She states she is agreeable to intubation if needed for respiratory failure but wishes to be DNR in the setting of pulseless arrest. alternate code intubation only. 09/05 Lengthy discussion with patient who was initially resistant to intubation and making comments regarding consideration of comfort measures. Ultimately she was agreeable to intubation. She states her daughter is her healthcare surrogate. She indicated she would not want prolonged intubation or trach. Her daughter states she said she agreed to intubation for "4 days". Level 3 Problem Qualifiers (1) Respiratory failure: Qualified Codes: J96.01 - Acute respiratory failure with hypoxia Pamela Johnson MD Sep 09, 2017 10:51
[2017-09-09] MEDS: AZITHROMYCIN INJ 500 MG in SODIUM CHLOR 0.9% 250 ML INJ 250 ML IV SCH (12:09)
[2017-09-09] MEDS: DEXMEDETOMIDINE INJ 200 MCG in SODIUM CHLORIDE 0.9% INJ 50 ML IV PRN ×2 (12:09→17:27)
--- NOTE | 2017-09-09 12:40 | HHI.PR ---
Subjective Remarks sedated on the ventilator Objective Vital Signs Date Time Temp Pulse Resp B/P (MAP) Pulse Ox O2 Delivery O2 Flow Rate FiO2 09/09/17 12:00 99.3 78 20 156/83 (107) 99 09/09/17 12:00 76 09/09/17 11:00 40 09/09/17 10:00 64 09/09/17 08:06 100 40 09/09/17 08:06 40 09/09/17 08:00 64 09/09/17 08:00 100 Mechanical Ventilator 40 09/09/17 08:00 98.8 65 21 157/76 (103) 99 09/09/17 07:00 40 09/09/17 06:30 62 09/09/17 06:15 64 09/09/17 06:00 64 09/09/17 04:00 100 Mechanical Ventilator 40 09/09/17 04:00 98.8 71 21 162/77 (105) 99 09/09/17 04:00 71 09/09/17 03:41 100 40 09/09/17 03:00 40 09/09/17 02:00 71 09/09/17 00:31 100 40 09/09/17 00:00 99 Mechanical Ventilator 40 09/09/17 00:00 98.9 71 21 160/86 (110) 100 09/09/17 00:00 71 09/08/17 23:00 40 09/08/17 22:00 64 09/08/17 20:13 100 40 09/08/17 20:00 69 09/08/17 20:00 99.0 69 17 143/66 (91) 99 09/08/17 20:00 99 Mechanical Ventilator 40 09/08/17 19:00 40 09/08/17 18:00 63 09/08/17 16:26 40 09/08/17 16:22 96 40 09/08/17 16:00 98.9 61 16 145/65 (91) 99 09/08/17 16:00 99 Mechanical Ventilator 40 09/08/17 16:00 62 09/08/17 15:07 100 40 09/08/17 15:00 40 09/08/17 14:00 68 I/O 09/08/17 09/08/17 09/08/17 09/09/17 09/09/17 09/09/17 07:00 15:00 23:00 07:00 15:00 23:00 Intake Total 875 ml 250 ml 200 ml 712 ml Output Total 450 ml 1200 ml 450 ml Balance 425 ml 250 ml -1000 ml 262 ml Intake Oral 0 ml IV Total 163 ml 250 ml 100 ml 100 ml Tube Feeding 592 ml 552 ml Tube Irrigant 120 ml Other 100 ml 60 ml Output Urine Total 450 ml 1200 ml 450 ml # Bowel Movements 1 1 1 Result Diagram: 09/09/17 0358 09/09/17 0358 Objective Remarks GENERAL: SKIN: Warm and dry. HEAD: Atraumatic. Normocephalic. EYES: Pupils equal and round. No scleral icterus. No injection or drainage. ENT: No nasal bleeding or discharge. Mucous membranes pink and moist. NECK: Trachea midline. No JVD. CARDIOVASCULAR: Regular rate and rhythm. RESPIRATORY: No accessory muscle use. Clear to auscultation. Breath sounds equal bilaterally. GASTROINTESTINAL: Abdomen soft, non-tender, nondistended. Hepatic and splenic margins not palpable. MUSCULOSKELETAL: Extremities without clubbing, cyanosis, or edema. No obvious deformities. NEUROLOGICAL: Awake and alert. No obvious cranial nerve deficits. Motor grossly within normal limits. Five out of 5 muscle strength in the arms and legs. Normal speech. PSYCHIATRIC: Appropriate mood and affect; insight and judgment normal. Assessment and Plan Assessment and Plan ass respiratory failure pneumonia [employer] PL[employer] VENT SUPPORT ANTIBIOTIC THERAPY PER ID [employer] TOLERATED Eufemia Fall MD Sep 09, 2017 12:40
[2017-09-09] MEDS: cefTRIAXone INJ 2,000 MG in SODIUM CHLORIDE 0.9% INJ 100 ML IV SCH (15:00)
[2017-09-09] MEDS: SODIUM CHLORIDE 0.9% FLUSH 10 ML FLUSH IV FLUSH SCH ×2 (21:00→22:06)
[2017-09-10] VITALS (13 sets, daily range): BP systolic 140–176; BP diastolic 65–96; PULSE 50–94; RESP 15–19; TEMP 98–98.7; O2SAT 90–99
[2017-09-10] MEDS: DEXMEDETOMIDINE INJ 200 MCG in SODIUM CHLORIDE 0.9% INJ 50 ML IV PRN (01:26)
[2017-09-10] MEDS: INSULIN ASPART SUPPLEMENTAL SCALE SQ SCH ×3 (01:28→13:27)
[2017-09-10] MEDS: CHLORHEXIDINE GLUCONATE 2 % 1 PACK (2 CLOTHS) TOP SCH (04:00)
[2017-09-10 04:17] LABS: AUTOMATED NEUTROPHIL # 17.2 TH/MM3 (1.8-7.7); BASOPHIL % 0.1 % (0.0-2.0); HEMATOCRIT 27.5 % (35.0-46.0); HEMOGLOBIN 8.8 GM/DL (11.6-15.3); LYMPH % 6.6 % (9.0-44.0); LYMPHOCYTE # 1.3 TH/MM3 (1.0-4.8); MEAN CELL VOLUME 90.2 FL (80.0-100.0); MEAN CORPUSCULAR HEMOGLOBIN 28.9 PG (27.0-34.0); MEAN PLATELET VOLUME 8.2 FL (7.0-11.0); MONO % 3.7 % (0.0-8.0); MONOCYTE # 0.7 TH/MM3 (0-0.9); NEUT % 89.6 % (16.0-70.0); PLATELET COUNT 341 TH/MM3 (150-450); RED BLOOD COUNT 3.05 MIL/MM3 (4.00-5.30); RED CELL DISTRIBUTION WIDTH 15.3 % (11.6-17.2); WHITE BLOOD COUNT 19.2 TH/MM3 (4.0-11.0)
[2017-09-10 04:45] LABS: BICARBONATE 28.9 MEQ/L (21.0-32.0); CALCIUM 8.4 MG/DL (8.5-10.1); CREATININE 1.31 MG/DL (0.50-1.00)
[2017-09-10 05:25] LABS: BANDS 2 % (0-6); LYMPHOCYTES 5 % (9-44); METAMYELOCYTES 1 % (0-1); MONOCYTES 2 % (0-8); MYELOCYTES 1 % (0-0); NEUTROPHIL # MANUAL DIFF 17.9 TH/MM3 (1.8-7.7); POLYS (SEG NEUTROPHILS) 89 % (16-70)
[2017-09-10 05:26] LABS: OVALOCYTES 1+ (NORMAL)
[2017-09-10 05:27] LABS: ACANTHOCYTES OCC (NORMAL)
[2017-09-10] MEDS: methylPREDNISolone SOD SUCC 125 MG/2 ML VIAL IV SCH ×2 (06:15→13:27)
[2017-09-10] MEDS: LEVOTHYROXINE SODIUM 88 MCG TAB PO SCH (06:15)
[2017-09-10] MEDS: ENOXAPARIN SODIUM 80 MG/0.8 ML SYRINGE SQ SCH (06:16)
[2017-09-10] MEDS: CHLORHEXIDINE 0.12% (ORAL KIT) 15 ML CUP MT SCH ×2 (08:00→20:00)
[2017-09-10] MEDS: FERROUS SULFATE 300 MG /5ML UDC OG-TUBE SCH (09:00)
[2017-09-10] MEDS: FAMOTIDINE 20 MG TAB PO SCH (09:00)
[2017-09-10] MEDS: GABAPENTIN 100 MG CAP PO SCH ×3 (09:00→17:58)
[2017-09-10] MEDS: SODIUM CHLORIDE 0.9% FLUSH 10 ML FLUSH IV FLUSH SCH (09:00)
[2017-09-10] MEDS: DOCUSATE SODIUM 50 MG/SENNA 8.6 MG TAB PO SCH (09:00)
[2017-09-10] MEDS: AZITHROMYCIN INJ 500 MG in SODIUM CHLOR 0.9% 250 ML INJ 250 ML IV SCH (12:00)
[2017-09-10] MEDS: cefTRIAXone INJ 2,000 MG in SODIUM CHLORIDE 0.9% INJ 100 ML IV SCH (13:26)
[2017-09-10] MEDS ORDERED: methylPREDNISolone SOD SUCC 125 MG/2 ML VIAL IV SCH (14:00)
[2017-09-10] MEDS ORDERED: PROMETHAZINE INJ 25 MG/ML VIAL IM PRN (16:00)
--- NOTE | 2017-09-10 16:42 | HHI.PR ---
Subjective Remarks extbated o on o2 via mask Objective Vital Signs Date Time Temp Pulse Resp B/P (MAP) Pulse Ox O2 Delivery O2 Flow Rate FiO2 09/10/17 16:00 99 Nasal Cannula 2.00 28 09/10/17 16:00 53 09/10/17 16:00 98.0 62 18 159/72 (101) 99 09/10/17 14:00 53 09/10/17 12:00 53 09/10/17 12:00 98.6 56 18 145/96 (112) 99 09/10/17 10:00 52 09/10/17 08:00 99 Nasal Cannula 2.00 28 09/10/17 08:00 58 09/10/17 08:00 98.7 53 16 165/74 (104) 99 09/10/17 06:00 58 09/10/17 04:00 99 Nasal Cannula 2.00 28 09/10/17 04:00 58 09/10/17 04:00 98.3 58 15 155/70 (98) 99 09/10/17 02:00 59 09/10/17 00:00 98.3 50 18 140/65 (90) 99 09/10/17 00:00 50 09/10/17 00:00 99 4.00 40 09/09/17 22:00 57 09/09/17 21:02 98 Nasal Cannula 2.00 09/09/17 20:00 67 09/09/17 20:00 98.2 67 20 147/70 (95) 100 09/09/17 20:00 99 4.00 40 09/09/17 18:00 76 I/O 09/09/17 09/09/17 09/09/17 09/10/17 09/10/17 09/10/17 07:00 15:00 23:00 07:00 15:00 23:00 Intake Total 712 ml Output Total 450 ml 1400 ml 554 ml Balance 262 ml -1400 ml -554 ml IV Total 100 ml Tube Feeding 552 ml Other 60 ml Output Urine Total 450 ml 1400 ml 550 ml Stool Total 4 ml # Bowel Movements 1 4 Result Diagram: 09/10/1731509/10/17315 Objective Remarks GENERAL: SKIN: Warm and dry. HEAD: Atraumatic. Normocephalic. EYES: Pupils equal and round. No scleral icterus. No injection or drainage. ENT: No nasal bleeding or discharge. Mucous membranes pink and moist. NECK: Trachea midline. No JVD. CARDIOVASCULAR: Regular rate and rhythm. RESPIRATORY: No accessory muscle use. Clear to auscultation. Breath sounds equal bilaterally. GASTROINTESTINAL: Abdomen soft, non-tender, nondistended. Hepatic and splenic margins not palpable. MUSCULOSKELETAL: Extremities without clubbing, cyanosis, or edema. No obvious deformities. NEUROLOGICAL: Awake and alert. No obvious cranial nerve deficits. Motor grossly within normal limits. Five out of 5 muscle strength in the arms and legs. Normal speech. PSYCHIATRIC: Appropriate mood and affect; insight and judgment normal. Assessment and Plan Assessment and Plan ass respiratory failure pneumonia [employer] PLAN O2 NEEDED ANTIBIOTIC THERAPY PER ID PULM TOILET Eufemia Fall MD Sep 10, 2017 16:42
[2017-09-10] MEDS: MORPHINE SULFATE 8 MG/ML INJ IV PUSH PRN ×2 (17:05→23:29)
--- NOTE | 2017-09-10 21:13 | HHI.CCPN ---
Subjective Remarks/Hospital Course Patient history is limited due to BiPAP mask in place. History is obtained from patient's daughter and review of records from [facility]. 76-year-old female with past medical history of hypertension, COPD, emphysema,, Sjogren's syndrome, rheumatoid arthritis (on plaquenil), CKD stage IV (followed by Dr. Jonas with plan for eventual home PD), hypothyroidism, chronic anemia with iron deficiency, GERD who presented to [facility] emergency department via EV[facility] from [facility]. She has recent hospitalization at [facility] on 07/24. She was discharged to [facility] on 08/05. Her daughter states that during this hospitalization she was treated for bilateral pneumonia and had tested positive for rhinovirus. Reportedly echo during that hospitalization showed an EF of 50%. Yesterday she left [facility] for a 4-hour home visit. Her daughter states she was fatigued and laid in bed. She was SOB. She has had a cough productive of clear sputum for 3 days. She denies any chest pain or hemoptysis. She has experienced bilateral lower extremity swelling. Her daughter reports that she had a fever at the longterm however what is documented on transfer paperwork is temp of 97.4. Patient denies any issues with this for nausea. She has vomited every morning for the last week a few minutes after swallowing her morning medications. Upon arrival she is afebrile with night temp at 98.8. She is in A. fib with RVR with rate in the 110s. Blood white blood cell count is 24.6, creatinine of 1.49 , troponin 0 0.21, BNP 1530. She has received Lasix 60 mg IV and has been placed on BiPAP 10/5 and 100% for increased work of breathing. Blood cultures have been obtained and she has been administered vancomycin, Zosyn, DuoNeb in the ED. She states she feels improved compared with arrival. She is agreeable to intubation if needed. 09/04 Diuresed net negative 1650. Was off Bipap to 6 L NC for couple of hours and then placed back on Bipap for desaturation. FIO2 weaned down to 55 from 100 % yesterday. Afebrile. No CP. Cough nonproductive. HAve not yet received records from [facility]. Will request them again. 09/05 Net negative 1760. Did not sleep well last night, worsening hypoxia. Persistent bilateral rales and infiltrates on CXR. She is fatigued and says she can't take it anymore. Initially refusing intubation and indicating she was wanting comfort measures only, however upon discussion with patient and her daughter, Denita, she was agreeable to intubation. Records received from [facility]. She was admitted 07/25/17 with myalgia, headache, cough, weakness, vomiting, diarrhea, visual hallucinations. She was treated with Zosyn and Zithromax and then Rocephin and doxycycline. Sputum culture 07/25 and blood cultures from 07/24 and 07/26 were negative. Urine Legionella and pneumococcal antigens were negative. Viral respiratory PCR was positive for rhino virus 07/27/17. Influenza was negative. CT chest 07/25 showed right upper lobe pneumonia. Echo 07/27/17 showed LVH with ejection fraction 60-65%, diastolic dysfunction, mild to moderate mitral regurgitation. 09/06 CT scan performed yesterday demonstrates bilateral groundglass opacities. Bronchial washing gram stain and fungal stains are negative. Blood cultures negative. 09/07: Remains sedated, orally intubated on mechanical ventilation. Dropped from +3 to +5. Respiratory rate decreased from 24 to 20. Will follow-up ABG. 09/08 Placing on CPAP. CXR today with L side opacity that looks worse c/w yesterday. Fluid balance for 24 hours is positive. Will diurese. WBC is 20, no significant secretions with suctioning, afebrile. Follows commands on sedation. 09/09 Tolerating CPAP 5/5. Afebrile. Continued diuresis with downtrending creatinine. Subjective: 09/10 Extubated yesterday and on NC. Speech therapy evaluated swallow and recommended n.p.o. She did not sleep well overnight, moaning. At high risk for requiring reintubation. I visited patient multiple times today with daughter and son-in-law at bedside. Patient is capacitated for medical decision-making and is very clear that she does not want reintubation "even if it is life or ".. She later indicated to me that she has "made peace", is ready for and would like transition to comfort measures. Her daughter, Denita, ( healthcare surrogate) is at bedside and says she fully intends to honor her mother's wishes. They are aware she may survive for days/weeks and are agreeable to consultation with hospice. Patient's son may also try to travel down, tentatively to arrive Tues. Objective Vital Signs Date Time Temp Pulse Resp B/P (MAP) Pulse Ox O2 Delivery O2 Flow Rate FiO2 09/10/17 18:00 53 09/10/17 16:00 99 Nasal Cannula 2.00 28 09/10/17 16:00 98.0 18 159/72 (101) Intake and Output 09/10/17 09/10/17 09/11/17 08:00 16:00 00:00 Output Total 554 ml 650 ml 200 ml Balance -554 ml -650 ml -200 ml Result Diagram: 09/10/17 0316 09/10/17 0316 Other Results Microbiology Date/Time Source Procedure Growth Status 09/08/17 15:20 Sputum Endotracheal Gram Stain - Final Complete 09/08/17 15:20 Sputum Endotracheal Sputum Culture - Final LIGHT GROWTH NORMAL RESPIRATORY MARTA Complete Objective Remarks GENERAL: Elderly overweight female who is on NC, pale appearing, lethargic. SKIN: Warm and dry, adequately perfused. HEAD: Atraumatic. Normocephalic. EYES: Pupils equal and round, 2 mm and reactive bilaterally.. No scleral icterus. No injection or drainage. ENT: No JVD CARDIOVASCULAR: irreg, Afib ., no mrg. RESPIRATORY: Coarse bilateral breath sounds with bilateral rales. No wheeze. GASTROINTESTINAL: Abdomen soft, non-tender, nondistended. Bowel sounds present. : Hoffman catheter in place with light yellow urine output. MUSCULOSKELETAL: Extremities without clubbing, cyanosis. edema decreased in lower legs, pitting edema of dependent portion of buttocks bilat. No palpable cords or erythema. NEUROLOGICAL: Opens eyes to voice, makes eye contact, pupils reactive, Oriented to self, hospital, circumstances. Moves all extremities spontaneously. A/P Problem List: (1) CKD (chronic kidney disease) stage 4, GFR 15-29 ml/min ICD Code: N18.4 - Chronic kidney disease, stage 4 (severe) Status: Chronic (2) ARDS (adult respiratory distress syndrome) ICD Code: J80 - Acute respiratory distress syndrome Status: Acute (3) Respiratory failure ICD Code: J96.90 - Respiratory failure, unspecified, unspecified whether with hypoxia or hypercapnia Status: Resolved (4) GERD (gastroesophageal reflux disease) ICD Code: K21.9 - Gastro-esophageal reflux disease without esophagitis Status: Chronic (5) Hiatal hernia ICD Code: K44.9 - Diaphragmatic hernia without obstruction or gangrene Status: Chronic (6) Rheumatoid arthritis ICD Code: M06.9 - Rheumatoid arthritis, unspecified Status: Chronic (7) Sjogren's disease ICD Code: M35.00 - Sicca syndrome, unspecified Status: Chronic (8) Immunocompromised state ICD Code: D84.9 - Immunodeficiency, unspecified (9) Obesity ICD Code: E66.9 - Obesity, unspecified Status: Chronic (10) Diastolic heart failure ICD Code: I50.30 - Unspecified diastolic (congestive) heart failure Status: Chronic Assessment and Plan NEURO: Peripheral neuropathy Depression Insomnia Acute hypoxemic respiratory failure ARDS, moderate severity Hypertension Paroxysmal atrial fibrillation, now in sinus rhythm Hyperlipidemia GERD Hiatal hernia CKD stage IV Acute hypokalemia Leukocytosis, Sjogren's syndrome Rheumatoid arthritis Chronic anemia Iron deficiency Bilateral posterior tibial venous thrombosis. Hypothyroidism Dr. Johnson discussed with patient in the evening of 09/03. She was capacitated for medical decision-making. She states she is agreeable to intubation if needed for respiratory failure but wishes to be DNR in the setting of pulseless arrest. alternate code intubation only. 09/05 Lengthy discussion with patient who was initially resistant to intubation and making comments regarding consideration of comfort measures. Ultimately she was agreeable to intubation. She states her daughter is her healthcare surrogate. She indicated she would not want prolonged intubation or trach. Her daughter states she said she agreed to intubation for "4 days". 09/10 Lengthy discussions with patient and family on multiple occasions today. Updated family and patient regarding her diagnoses and prognosis and expected course. Patients condition remains guarded in ICU. She is capacitated for medical decision-making and, in the presence of her daughter and son-in-law, she states that she would like transition to comfort measures. Will add medications to provide comfort. Will discontinue medications and testing that is not related to comfort care. Hospice consult. Level 3 followup. Problem Qualifiers (1) Respiratory failure: Qualified Codes: J96.01 - Acute respiratory failure with hypoxia Pamela Johnson MD Sep 10, 2017 21:13
[2017-09-10] MEDS: ACETAMINOPHEN 1000 MG/100 ML 100 ML IV PRN (21:36)
[2017-09-11] VITALS (11 sets, daily range): BP systolic 134–171; BP diastolic 70–86; PULSE 70–118; RESP 11–21; TEMP 97.5–98.3; O2SAT 86–93
[2017-09-11] MEDS: MORPHINE SULFATE 8 MG/ML INJ IV PUSH PRN ×5 (01:17→19:27)
[2017-09-11] MEDS: CHLORHEXIDINE GLUCONATE 2 % 1 PACK (2 CLOTHS) TOP SCH (04:00)
[2017-09-11] MEDS: SODIUM CHLORIDE 0.9% FLUSH 10 ML FLUSH IV FLUSH SCH ×2 (04:20→07:55)
[2017-09-11] MEDS: ACETAMINOPHEN 1000 MG/100 ML 100 ML IV PRN (04:30)
[2017-09-11] MEDS: CHLORHEXIDINE 0.12% (ORAL KIT) 15 ML CUP MT SCH (08:00)
--- NOTE | 2017-09-11 13:03 | HHI.CCPN ---
Subjective Remarks/Hospital Course Patient history is limited due to BiPAP mask in place. History is obtained from patient's daughter and review of records from [facility]. 76-year-old female with past medical history of hypertension, COPD, emphysema,, Sjogren's syndrome, rheumatoid arthritis (on plaquenil), CKD stage IV (followed by Dr. Jonas with plan for eventual home PD), hypothyroidism, chronic anemia with iron deficiency, GERD who presented to [facility] emergency department via [facility] from [facility]. She has recent hospitalization at [facility] on 07/24. She was discharged to [facility] on 08/05. Her daughter states that during this hospitalization she was treated for bilateral pneumonia and had tested positive for rhinovirus. Reportedly echo during that hospitalization showed an EF of 50%. Yesterday she left [facility] for a 4-hour home visit. Her daughter states she was fatigued and laid in bed. She was SOB. She has had a cough productive of clear sputum for 3 days. She denies any chest pain or hemoptysis. She has experienced bilateral lower extremity swelling. Her daughter reports that she had a fever at the care home however what is documented on transfer paperwork is temp of 97.4. Patient denies any issues with this for nausea. She has vomited every morning for the last week a few minutes after swallowing her morning medications. Upon arrival she is afebrile with night temp at 98.8. She is in A. fib with RVR with rate in the 110s. Blood white blood cell count is 24.6, creatinine of 1.49 , troponin 0 0.21, BNP 1530. She has received Lasix 60 mg IV and has been placed on BiPAP 10/5 and 100% for increased work of breathing. Blood cultures have been obtained and she has been administered vancomycin, Zosyn, DuoNeb in the ED. She states she feels improved compared with arrival. She is agreeable to intubation if needed. 09/04 Diuresed net negative 1650. Was off Bipap to 6 L NC for couple of hours and then placed back on Bipap for desaturation. FIO2 weaned down to 55 from 100 % yesterday. Afebrile. No CP. Cough nonproductive. HAve not yet received records from [facility]. Will request them again. 09/05 Net negative 1760. Did not sleep well last night, worsening hypoxia. Persistent bilateral rales and infiltrates on CXR. She is fatigued and says she can't take it anymore. Initially refusing intubation and indicating she was wanting comfort measures only, however upon discussion with patient and her daughter, Denita, she was agreeable to intubation. Records received from [facility]. She was admitted 07/25/17 with myalgia, headache, cough, weakness, vomiting, diarrhea, visual hallucinations. She was treated with Zosyn and Zithromax and then Rocephin and doxycycline. Sputum culture 07/25 and blood cultures from 07/24 and 07/26 were negative. Urine Legionella and pneumococcal antigens were negative. Viral respiratory PCR was positive for rhino virus 07/27/17. Influenza was negative. CT chest 07/25 showed right upper lobe pneumonia. Echo 07/27/17 showed LVH with ejection fraction 60-65%, diastolic dysfunction, mild to moderate mitral regurgitation. 09/06 CT scan performed yesterday demonstrates bilateral groundglass opacities. Bronchial washing gram stain and fungal stains are negative. Blood cultures negative. 09/07: Remains sedated, orally intubated on mechanical ventilation. Dropped from +3 to +5. Respiratory rate decreased from 24 to 20. Will follow-up ABG. 09/08 Placing on CPAP. CXR today with L side opacity that looks worse c/w yesterday. Fluid balance for 24 hours is positive. Will diurese. WBC is 20, no significant secretions with suctioning, afebrile. Follows commands on sedation. 09/09 Tolerating CPAP 5/5. Afebrile. Continued diuresis with downtrending creatinine. Subjective: 09/10 Extubated yesterday and on NC. Speech therapy evaluated swallow and recommended n.p.o. She did not sleep well overnight, moaning. At high risk for requiring reintubation. I visited patient multiple times today with daughter and son-in-law at bedside. Patient is capacitated for medical decision-making and is very clear that she does not want reintubation "even if it is life or ".. She later indicated to me that she has "made peace", is ready for and would like transition to comfort measures. Her daughter, Denita, ( healthcare surrogate) is at bedside and says she fully intends to honor her mother's wishes. They are aware she may survive for days/weeks and are agreeable to consultation with hospice. Patient's son may also try to travel down, tentatively to arrive Tues. 09/11 Patient was transitioned to comfort care yesterday awaiting hospice eval. Objective Vital Signs Date Time Temp Pulse Resp B/P (MAP) Pulse Ox O2 Delivery O2 Flow Rate FiO2 09/11/17 12:00 87 Room Air 09/11/17 12:00 90 09/11/17 12:00 14 150/70 (96) 09/11/17 08:00 97.5 09/10/17 22:10 2.00 09/10/17 16:00 28 Intake and Output 09/11/17 09/11/17 09/12/17 08:00 16:00 00:00 Intake Total 450 ml Output Total 600 ml Balance -150 ml Result Diagram: 09/10/17 0316 09/10/17 0316 Imaging Last Impressions Chest X-Ray 09/09/17 0600 Signed Impressions: CONCLUSION: Endotracheal tube and nasogastric tube in good position. Stable bilateral airsp catarino disease, left greater than right. Chest CT 09/05/17 0000 Signed Impressions: CONCLUSION: 1. Large bilateral pleural effusions, patchy bilateral consolidation and adeno jhoan. 2. Mild aneurysmal dilatation of the aorta. 3. Atherosclerosis. Renal Ultrasound 09/03/17 0000 Signed Impressions: CONCLUSION: 1. No obstructive uropathy or other acute abnormality demonstrated. 2. Small, benign cyst of the right upper pole. Lower Extremity Ultrasound 09/03/17 Signed Impressions: CONCLUSION: Bilateral below the knee lower extremity DVT as above. Objective Remarks GENERAL: Elderly overweight female who is on NC, pale appearing, lethargic. SKIN: Warm and dry, adequately perfused. HEAD: Atraumatic. Normocephalic. EYES: Pupils equal and round, 2 mm and reactive bilaterally.. No scleral icterus. No injection or drainage. ENT: No JVD CARDIOVASCULAR: irreg, Afib ., no mrg. RESPIRATORY: Coarse bilateral breath sounds with bilateral rales. No wheeze. GASTROINTESTINAL: Abdomen soft, non-tender, nondistended. Bowel sounds present. : Hoffman catheter in place with light yellow urine output. MUSCULOSKELETAL: Extremities without clubbing, cyanosis. edema decreased in lower legs, pitting edema of dependent portion of buttocks bilat. No palpable cords or erythema. NEUROLOGICAL: Opens eyes to voice, makes eye contact, pupils reactive, Oriented to self, hospital, circumstances. Moves all extremities spontaneously. A/P Problem List: (1) CKD (chronic kidney disease) stage 4, GFR 15-29 ml/min ICD Code: N18.4 - Chronic kidney disease, stage 4 (severe) Status: Chronic (2) ARDS (adult respiratory distress syndrome) ICD Code: J80 - Acute respiratory distress syndrome Status: Acute (3) Respiratory failure ICD Code: J96.90 - Respiratory failure, unspecified, unspecified whether with hypoxia or hypercapnia Status: Resolved (4) GERD (gastroesophageal reflux disease) ICD Code: K21.9 - Gastro-esophageal reflux disease without esophagitis Status: Chronic (5) Hiatal hernia ICD Code: K44.9 - Diaphragmatic hernia without obstruction or gangrene Status: Chronic (6) Rheumatoid arthritis ICD Code: M06.9 - Rheumatoid arthritis, unspecified Status: Chronic (7) Sjogren's disease ICD Code: M35.00 - Sicca syndrome, unspecified Status: Chronic (8) Immunocompromised state ICD Code: D84.9 - Immunodeficiency, unspecified (9) Obesity ICD Code: E66.9 - Obesity, unspecified Status: Chronic (10) Diastolic heart failure ICD Code: I50.30 - Unspecified diastolic (congestive) heart failure Status: Chronic Assessment and Plan NEURO: Peripheral neuropathy Depression Insomnia Acute hypoxemic respiratory failure ARDS, moderate severity Hypertension Paroxysmal atrial fibrillation, now in sinus rhythm Hyperlipidemia GERD Hiatal hernia CKD stage IV Acute hypokalemia Leukocytosis, Sjogren's syndrome Rheumatoid arthritis Chronic anemia Iron deficiency Bilateral posterior tibial venous thrombosis. Hypothyroidism Per Dr. Johnson: 09/10 Lengthy discussions with patient and family on multiple occasions today. Updated family and patient regarding her diagnoses and prognosis and expected course. Patients condition remains guarded in ICU. She is capacitated for medical decision-making and, in the presence of her daughter and son-in-law, she states that she would like transition to comfort measures. Medications and testing discontinued that is not related to comfort care. Hospice consult. -Continue with comfort measures, seen buy hospice and for discharge to hospice care center today. Level 1 Problem Qualifiers (1) Respiratory failure: Qualified Codes: J96.01 - Acute respiratory failure with hypoxia Christopher,Alaa MD Sep 11, 2017 13:03
[2017-09-11] MEDS: LORazepam 2 MG/ML VIAL IV PUSH PRN ×2 (15:14→19:28)
--- NOTE | 2017-09-11 17:14 | HHI.PR ---
Subjective Remarks on o2 via mask Objective Vital Signs Date Time Temp Pulse Resp B/P (MAP) Pulse Ox O2 Delivery O2 Flow Rate FiO2 09/11/17 16:00 79 09/11/17 16:00 91 Room Air 09/11/17 16:00 79 12 134/71 (92) 91 09/11/17 14:00 82 09/11/17 12:00 87 Room Air 09/11/17 12:00 90 09/11/17 12:00 90 14 150/70 (96) 87 09/11/17 10:00 70 09/11/17 08:00 97 09/11/17 08:00 90 Room Air 09/11/17 08:00 97.5 97 21 146/79 (101) 90 09/11/17 06:00 87 09/11/17 04:00 118 09/11/17 04:00 98.2 118 11 171/86 (114) 93 09/11/17 02:00 97 09/11/17 00:00 98.3 91 15 138/84 (102) 86 09/11/17 00:00 91 09/10/17 22:10 94 Nasal Cannula 2.00 09/10/17 22:00 82 09/10/17 20:00 94 09/10/17 20:00 98.2 94 19 176/86 (116) 90 09/10/17 18:00 53 I/O 09/10/17 09/10/17 09/10/17 09/11/17 09/11/17 09/11/17 07:00 15:00 23:00 07:00 15:00 23:00 Intake Total 50 ml 100 ml 450 ml Output Total 554 ml 650 ml 200 ml 600 ml Balance -504 ml -650 ml -100 ml -150 ml Intake Oral 0 ml IV Total 50 ml 100 ml 450 ml Output Urine Total 550 ml 650 ml 200 ml 600 ml Stool Total 4 ml 0 ml # Bowel Movements 4 0 Result Diagram: 09/10/1731509/10/17315 Objective Remarks GENERAL: SKIN: Warm and dry. HEAD: Atraumatic. Normocephalic. EYES: Pupils equal and round. No scleral icterus. No injection or drainage. ENT: No nasal bleeding or discharge. Mucous membranes pink and moist. NECK: Trachea midline. No JVD. CARDIOVASCULAR: Regular rate and rhythm. RESPIRATORY: No accessory muscle use. Clear to auscultation. Breath sounds equal bilaterally. GASTROINTESTINAL: Abdomen soft, non-tender, nondistended. Hepatic and splenic margins not palpable. MUSCULOSKELETAL: Extremities without clubbing, cyanosis, or edema. No obvious deformities. NEUROLOGICAL: Awake and alert. No obvious cranial nerve deficits. Motor grossly within normal limits. Five out of 5 muscle strength in the arms and legs. Normal speech. PSYCHIATRIC: Appropriate mood and affect; insight and judgment normal. Assessment and Plan Assessment and Plan ass respiratory failure pneumonia [employer] PLAN O2 NEEDED ANTIBIOTIC THERAPY PER ID PULM TOEufemia Mansfield MD Sep 11, 2017 17:14
--- NOTE | 2017-09-11 17:22 | MD ---
cc: Willi White MD DATE OF DISCHARGE: HISTORY OF PRESENT ILLNESS: The patient is a 76-year-old female with history of hypertension, COPD, Sjogren syndrome, rheumatoid arthritis, on Plaquenil, stage IV chronic kidney disease, hypothyroidism, chronic anemia with iron deficiency, GERD, who presented to [facility] on 09/03 via EMS from [facility] for respiratory distress. The patient was hospitalized at [facility] on 07/24 and was discharged to [facility] on 08/05. Per records, the patient was treated for bilateral pneumonia and tested positive for rhinovirus. HOSPITAL COURSE: Upon arrival, she was in atrial fibrillation with RVR at rate of 110 beats per minute. In addition, she had significant leukocytosis, with a WBC of 24.6, acute kidney injury with creatinine level of 1.49. Her BNP was also elevated at 1530 and she received Lasix 60 mg IV push and was initially placed on the BiPAP with 100% FiO2 and she was started on broad spectrum antibiotics. Due to worsening respiratory status, the patient was intubated and placed on full mechanical ventilation. She had a CT scan of the chest on 09/05, which showed patchy bilateral consolidation and adenovirus. A Doppler ultrasound of lower extremities performed on 09/03, which showed a DVT. During her hospital course, she was seen by pulmonary and infectious disease services. The patient was on bronchodilators and she had a repeat echocardiogram, which showed an EF of 55-60%, mild to moderate mitral regurgitation. The patient was on aspirin 325 mg daily. Nutrition support was provided via tube feeds. She was on Jevity 1.5 with a rate of 55 mL an hour per nutrition's recommendations. She was also placed on broad spectrum antibiotics. Synthroid 88 mcg was continued in view of history of hypothyroidism and was placed on Lovenox 1 mg/kg twice a day. The patient was extubated on 05/12. Dr. Johnson had a discussion with the patient and her daughter, Denita, who is the healthcare surrogate and per the patient's wishes, the patient was transitioned to comfort care and she was being discharged to hospice care on 09/11/2017. MD [facility]/[place] , 04:47 PM , 05:21 PM
== END 2017-09-11 20:00 | disposition hospice, inpatient (51) | DRG 167 ==
LOC: NEPC 06:08 → NEDA 07:53 → HCVI 11:12 → HIME 09-08 09:50
PROVIDERS: ADMIT Emergency Medicine; ATTEND Emergency Medicine
PROC: 0B9D8ZX Drainage of Right Middle Lung Lobe, Via Natural or Artificial Opening Endoscopic, Diagnostic (ICD-10-PCS; principal; 2017-09-05)
PROC: 5A1955Z Respiratory Ventilation, Greater than 96 Consecutive Hours (ICD-10-PCS; 2017-09-05)
PROC: 0BH17EZ Insertion of Endotracheal Airway into Trachea, Via Natural or Artificial Opening (ICD-10-PCS; 2017-09-05)
DX: J96.01 Acute respiratory failure with hypoxia (principal); N18.4 Chronic kidney disease, stage 4 (severe); D84.9 Immunodeficiency, unspecified; I82.443 Acute embolism and thrombosis of tibial vein, bilateral; G62.9 Polyneuropathy, unspecified; I48.0 Paroxysmal atrial fibrillation; J43.9 Emphysema, unspecified; M35.00 Sjogren syndrome, unspecified; F32.9 Major depressive disorder, single episode, unspecified; E55.9 Vitamin D deficiency, unspecified; M19.90 Unspecified osteoarthritis, unspecified site; M06.9 Rheumatoid arthritis, unspecified; K21.9 Gastro-esophageal reflux disease without esophagitis; G47.00 Insomnia, unspecified; E87.6 Hypokalemia; E03.9 Hypothyroidism, unspecified; B97.89 Other viral agents as the cause of diseases classified elsewhere; D50.9 Iron deficiency anemia, unspecified; K44.9 Diaphragmatic hernia without obstruction or gangrene; E78.5 Hyperlipidemia, unspecified; Z79.82 Long term (current) use of aspirin; Z79.51 Long term (current) use of inhaled steroids; Z79.52 Long term (current) use of systemic steroids; Z79.899 Other long term (current) drug therapy; Z87.891 Personal history of nicotine dependence; Z85.41 Personal history of malignant neoplasm of cervix uteri; Z88.5 Allergy status to narcotic agent
CPT/HCPCS: 31500; 36600; 71045; 71250; 76775; 80048; 80053; 80202; 81001; 82550; 82805; 82948; 83540; 83550; 83605; 83615; 83735; 83880; 84100; 84132; 84443; 84484; 85007; 85025; 85027; 85379; 85610; 85652; 85730; 86140; 87015; 87040; 87070; 87102; 87116; 87205; 87206; 87252; 87449; 87641; 87804; 89051; 93005; 93306; 93970; 94002; 94003; 94640; 94664; 96365; 96375; J0131; J0171; J0456; J0461; J0696; J1644; J1650; J1815; J1940; J2060; J2250; J2270; J2543; J2930; J3010; J3370; J3480; J7050; J7512; J7613